=== PATIENT | male | born 1930 | race Caucasian/White ===

== ENCOUNTER 2017-03-17 13:20 | Emergency (ER) | payer OTHER, BC ==
[2017-03-17 13:38] VITALS: BMI 26.2
--- NOTE | 2017-03-17 14:03 | PDOC ---
History of Present Illness - General Chief Complaint: Headache Stated Complaint: HEADACHE, EYE PROBLEM Time Seen by Provider: 03/17/17 13:51 - History of Present Illness Initial Comments: 03/17/17 14:32 86 yo M with h/o HTN, HLD, BL cataracts, and Alzheimer dementia who presents with forehead sensory disturbance. Forehead sensory disturbance described as BL superior brow numbness/fullness occurring intermittently for minutes to hours over the past 8 years. Now presents to the ED with acute onset retrobulbar radiation. No identifiable trigger or alleviator.Denies photphobia, phonophobia, aura, tinnitus, autonomic disturbances. Denies any other complaints. Denies vision loss, FITZGERALD, Denies N/V, weakness, lightheadedness, acute ext sensory disturbance, fevers/chills, chest pain, SOB, urinary complaints, bowel/GI complaints. PCP Dr. Gregorio, and Therapist Occupational Dr. Alejo. ASA 81 mg QD. Denies h/o TIA/CVA. Followed with Dr. Bahena and Dr. Bergeron in past with neg head CT scan 2015, and neg BL carotid dopplers. Past History - Past Medical History Allergies/Adverse Reactions: Allergies Allergy/AdvReac Type Severity Reaction Status Date / Time ibuprofen Allergy Rash Verified 03/17/17 13:34 Penicillins Allergy Rash Verified 03/17/17 13:34 Home Medications: Ambulatory Orders Allopurinol [Zyloprim -] 100 mg PO DAILY 03/17/17 Aspirin [ASA -] 325 mg PO DAILY 03/17/17 Donepezil HCl [Aricept] 10 mg PO DAILY 03/17/17 Dutasteride [Avodart] 0.5 mg PO DAILY 03/17/17 Isosorbide Mononitrate [Isosorbide Mononitrate ER] 60 mg PO DAILY 03/17/17 Metoprolol Succinate [Toprol Xl] 100 mg PO DAILY 03/17/17 Omeprazole Magnesium [Prilosec] 20 mg PO DAILY 03/17/17 Pioglitazone HCl [Actos] 15 mg PO DAILY 03/17/17 Pyridoxine HCl [Vitamin B-6] 100 mg PO DAILY 03/17/17 Rosuvastatin Calcium [Crestor] 5 mg PO DAILY 03/17/17 Vitamin E - 800 unit PO DAILY 03/17/17 Cardiac Disorders: Yes (CARDIAC STENTS) COPD: Yes (emphysema) CHF: No Dementia: Yes (slight) Diabetes: Yes GI Disorders: Yes (H/O COLON POLYPS) Disorders: No HTN: Yes Hypercholesterolemia: Yes Liver Disease: No Thyroid Disease: No Other medical history: bph - Surgical History Abdominal Surgery: No Appendectomy: No Cardiac Surgery: Yes (STENT) Cholecystectomy: No Lung Surgery: No Orthopedic Surgery: Yes (BACK SURGERY) - Immunization History Td Vaccination: Yes Immunization Up to Date: Yes - Suicide/Smoking/Psychosocial Hx Smoking Status: Yes Smoking History: Former smoker Years of Tobacco Use: 45 Have you smoked in the past 12 months: No Number of Cigarettes Smoked Daily: 0 If you are a former smoker, when did you quit?: OVER 25 YEARS Cigars Per Day: 0 Information on smoking cessation initiated: No Hx Alcohol Use: No Drug/Substance Use Hx: No Substance Use Type: None Hx Substance Use Treatment: No Review of Systems - Review of Systems Comments:: 03/17/17 14:02 GENERAL/CONSTITUTIONAL: No fever or chills. No weakness. HEAD, EYES, EARS, NOSE AND THROAT: No change in vision. No ear pain or discharge. No sore throat.- CARDIOVASCULAR: No chest pain or shortness of breath RESPIRATORY: No cough, wheezing, or hemoptysis. GASTROINTESTINAL: No nausea, vomiting, diarrhea or constipation. GENITOURINARY: No dysuria, frequency, or change in urination. MUSCULOSKELETAL: No joint or muscle swelling or pain. No neck or back pain. SKIN: No rash NEUROLOGIC: No headache, vertigo, loss of consciousness, or change in strength/ sensation. ENDOCRINE: No increased thirst. No abnormal weight change HEMATOLOGIC/LYMPHATIC: No anemia, easy bleeding, or history of blood clots. ALLERGIC/IMMUNOLOGIC: No hives or skin allergy. *Physical Exam - Vital Signs Last Vital Signs Temp Pulse Resp BP Pulse Ox 99.7 F H 66 18 138/69 100 03/17/17 13:35 03/17/17 13:35 03/17/17 13:35 03/17/17 13:35 03/17/17 13:35 - Physical Exam Comments: 03/17/17 14:02 GENERAL: Awake, alert, and fully oriented, in no acute distress HEAD: No signs of trauma, normocephalic, atraumatic EYES: Left eye miotic and reactive to light. Right eye pupillary defect. EOMI, sclera anicteric, conjunctiva clear ENT: Hearing grossly normal, nares patent, oropharynx clear without exudates. Moist mucosa NECK: Normal ROM, supple, no lymphadenopathy, JVD, or masses LUNGS: No distress, speaks full sentences, clear to auscultation bilaterally HEART: Regular rate and rhythm, normal S1 and S2, no murmurs, rubs or gallops, peripheral pulses normal and equal bilaterally. EXTREMITIES : Normal inspection, Normal range of motion, no edema. No clubbing or cyanosis. NEUROLOGICAL: Cranial nerves II through XII grossly intact. Normal speech, normal gait, no focal sensorimotor deficits. PING, HTS intact. Absent dysmetria on FTN. Neg romberg sign. SKIN: Warm, Dry, normal turgor, no rashes or lesions noted. ED Treatment Course - LABORATORY CBC & Chemistry Diagram: 03/17/17 14:19 03/17/17 14:19 Medical Decision Making - Medical Decision Making 03/17/17 14:58 86 yo M with h/o HTN, HLD, BL cataracts, and Alzheimer dementia who presents with BL superior brow numbness/fullness occurring intermittently for minutes to hours over the past 8 years. Now presents to the ED with acute onset retrobulbar radiation. No identifiable trigger or alleviator. Denies any other complaints. Denies vision loss, FITZGERALD, Denies N/V, weakness, lightheadedness, acute ext sensory disturbance, fevers/chills, chest pain, SOB, Phyiscal exam unremarkable. Temp 99.7, and hemodynamically stable. Low suspicion for migraine. Denies, photphobia, phonophobia, aura, tinnitus, autonomic disturbances. Sensation is bilateral and non pulsating. Not typical of migraine. Although there are no focal neurological deficits to suggest SAH, or dural hematoma, will consider CT HEAD in elderly patient with low threshold to obtain imaging. Pt. with possible atypical presentation, baseline Alzheimers, poor historian. S/s non suggestive of acute angle closure glacuoma. Will also consider infection, electrolyte/metabolic disturbance. ED Course: CBC, CMP, UA 03/17/17 15:03 CT HEAD W/OUT CON 03/17/17 15:05 CBC: Unremarkable 03/17/17 15:06 CR/BUN: 1.5/33 03/17/17 16:00 CT HEAD: Mild to Mod periventricular ischemic changes. No acute changes. Parietal meningioma present. Discuess with patient the findings of CT HEAD and need to f/u with PCP outpatient for interval CT HEAD. CXR: Unremarkable Patient is stable at bedside and ready for discharge. *DC/Admit/Observation/Transfer Diagnosis at time of Disposition: Disturbed sensory perception - Discharge Dispostion Disposition: HOME Condition at time of disposition: Stable Admit: No - Referrals Referrals: Denilson Gregorio MD [Primary Care Provider] - - Patient Instructions Printed Discharge Instructions: DI for Alzheimer's Disease Additional Instructions: Please return to the emergency department with any new or worsening symptoms or concerns. Please follow up with your neurologist for continued management. - Post Discharge Activity - Attestations Physician Attestion: 03/17/17 16:03 I attest to the information provided in this note.
--- NOTE | 2017-03-17 14:34 | PDOC ---
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 The patient denies head pain. Secondarily, he reports intermittent ringing in his ears. He denies chest pain, shortness of breath, headache and dizziness. He denies fever, chills, nausea, vomit, diarrhea and constipation. He denies dysuria, frequency, urgency and hematuria. Allergies: penicillins and ibuprofen PCP - Dr. Gregorio Welder Helper: Dr. Simental - Physicial Exam PE: 03/17/17 14:39 Vitals: Triage vital signs reviewed General Appearance: No acute distress, well nourished, well developed Head: Atraumatic Eyes: extraocular movement intact Neck: Supple; No nuchal rigidity Chest Wall: Nontender Cardiac: Regular rate and rhythm, no murmurs, no rubs, no gallops Lungs: Clear to auscultation bilateral, good air movement bilaterally Abdomen: Soft, nondistended, normal bowel sounds, nontender to palpation Genitourinary: Rectal: Exam deferred Extremities: Full range of motion to all extremities, no cyanosis, clubbing, or edema Skin: Warm and dry, no rashes or lesions, no rash, no petechiae Neuro: Cranial Nerves 2-12 grossly intact, Strength intact to all extremities, Sensation intact to all extremities, gait normal Psych: Normal mood, normal affect - Medical Decision Making 03/17/17 14:40 Documentation prepared by Hailey Richmond, acting as biomedical engineer for Jose Antonio Choudhary MD, <Hailey Richmond - Last Filed: 03/17/17 16:27> - Resident Resident Name: Praful De La Torre - ED Attending Attestation I have performed the following: I have examined & evaluated the patient, The case was reviewed & discussed with the resident, I agree w/resident's findings & plan, Exceptions are as noted - Medical Decision Making 03/18/17 09:33 This is an 86-year-old gentleman with a long-standing history of a complaint of pressure above his eyebrows. Both of his daughters are at the bedside with him. He has had this complaint for almost 8 years has been evaluated by several neurologists has had a battery of tests included CAT scans and MRIs and there has never been a clear diagnosis or etiology noted for this complaint. Recently he was complaining to his daughters about the same complaint although he felt it a little bit more below his eyes not significantly different than the last 8 years of this complaint He is otherwise acting normally conversing normally is in no pain or no acute distress. In the emergency department he had a CAT scan performed blood work urinalysis chest x-ray. The results of these tests were essentially unremarkable. We discussed the significance of this complaint with the daughters at that this time feel that it is most likely related to whatever the underlying cause of the previous 8 years of this complaint of bed at this time I do not feel strongly that there is an acute neurologic or emergent situation patient appears very stable for outpatient follow-up. Daughters and family are in agreement with plan Findings, the need for follow-up and strict return instructions discussed with family. <Jose Antonio Choudhary - Last Filed: 03/18/17 09:39>
[2017-03-17 14:35] LABS: BASOPHIL 0.6 % (0-2.0); EOSINOPHIL 0.5 % (0-4.5); MCH 29.1 pg (25.7-33.7); MCHC 31.8 g/dl (32.0-35.9); MEAN CELL VOLUME 91.7 fl (80-96); MEAN PLT VOLUME 8.5 fl (7.5-11.1); NEUTROPHILS 72.2 % (42.8-82.8); PLATELET COUNT 129 K/MM3 (134-434); RDW 16.1 % (11.9-15.9); WHITE BLOOD COUNT 6.1 K/mm3 (4.0-10.0)
[2017-03-17] MEDS ORDERED: SODIUM CHLORIDE 1,000 ML IV STA (14:38)
[2017-03-17 14:59] LABS: ANION GAP 3 (8-16); CALCIUM 8.9 mg/dL (8.5-10.1); CO2 32 mmol/L (21-32); CREATININE 1.5 mg/dL (0.7-1.3); GLUCOSE,RANDOM 97 mg/dL (74-106); SGOT/AST 21 U/L (15-37); SGPT/ALT 20 U/L (12-78)
[2017-03-17 15:01] LABS: ALK PHOS 52 U/L (45-117); BILIRUBIN,TOTAL 0.8 mg/dL (0.2-1.0); TOT PROT 6.9 g/dl (6.4-8.2)
[2017-03-17 16:16] LABS: URINE APPEARANCE SLCLOUDY; URINE BILIRUBIN NEGATIVE (NEGATIVE); URINE BLOOD NEGATIVE (NEGATIVE); URINE COLOR YELLOW; URINE GLUCOSE (UA) NEGATIVE (NEGATIVE); URINE KETONE NEGATIVE (NEGATIVE); URINE NITRITE NEGATIVE (NEGATIVE); URINE PROTEIN NEGATIVE (NEGATIVE); URINE UROBILINOGEN NEGATIVE mg/dL (0.2-1.0)
[2017-03-17 17:51] VITALS: BP 122/55; PULSE 55; TEMP 98
[2017-03-17 18:42] LABS: URINE LEUK ESTERASE Negative (NEGATIVE)
== END 2017-03-17 17:51 | disposition home or self-care (01) ==
LOC: JER 13:20
PROC: 3E0337Z Introduction of Electrolytic and Water Balance Substance into Peripheral Vein, Percutaneous Approach (ICD-10-PCS; principal; 2017-03-17)
DX: Z73.82 Dual sensory impairment (principal); G30.9 Alzheimer's disease, unspecified; F02.80 Dementia in other diseases classified elsewhere, unspecified severity, without behavioral disturbance, psychotic disturbance, mood disturbance, and anxiety; Z87.891 Personal history of nicotine dependence; Z95.5 Presence of coronary angioplasty implant and graft; E11.9 Type 2 diabetes mellitus without complications; I10 Essential (primary) hypertension; E78.00 Pure hypercholesterolemia, unspecified; J44.9 Chronic obstructive pulmonary disease, unspecified
CPT/HCPCS: 36415; 70450-TC; 71010-TC; 80053; 81003; 85025; 96360; 99283-25

== ENCOUNTER 2017-07-31 11:03 | Inpatient (IN) | payer OTHER, BC ==
--- NOTE | 2017-07-31 12:18 | PDOC ---
History of Present Illness - History of Present Illness Initial Comments: 07/31/17 12:25 The patient is a 86 year old male, with a significant PMH of hypertension, hyperlipidemia, B/L cataracts, alzheimer dementia, CAD s/p 2 stents, pupil deformity s/p trauma with nail, who presents to the emergency department with 3 weeks of difficulty tolerating food by mouth. As per patients family, the patient visited GI Dr. Barnard yesterday who scheduled an upper GI series for this upcoming Thursday and a esophagram for next Thursday. However, she states since yesterday the patient has had difficulty tolerating liquids and was advised to come to the ED by Dr. Barnard. The patient denies any pain. The patient denies chest pain, shortness of breath, headache and dizziness. Denies fever, chills, diarrhea and constipation. Denies dysuria, frequency, urgency and hematuria. Allergies: ibuprofen, penicillins Social history: Patient lives at home alone. PCP: Dr. Denilson Gregorio GI: Dr. Barnard <Osbaldo Dickson - Last Filed: 07/31/17 12:25> - General History Source: Patient, Family Exam Limitations: No Limitations <Ricardo Andrew - Last Filed: 07/31/17 13:54> - General Chief Complaint: Pain Stated Complaint: GI PROBLEMS, VOMITING Time Seen by Provider: 07/31/17 11:25 Past History <Osbaldo Dickson - Last Filed: 07/31/17 12:25> - Past Medical History Cardiac Disorders: Yes (CARDIAC STENTS) COPD: Yes (emphysema) CHF: No DVT: No Dementia: Yes (slight) Diabetes: Yes GI Disorders: Yes (H/O COLON POLYPS) Disorders: No HTN: Yes Hypercholesterolemia: Yes Liver Disease: No Thyroid Disease: No - Surgical History Abdominal Surgery: No Appendectomy: No Cardiac Surgery: Yes (STENT) Cholecystectomy: No Lung Surgery: No Orthopedic Surgery: Yes (BACK SURGERY) - Immunization History Td Vaccination: Yes Immunization Up to Date: Yes - Suicide/Smoking/Psychosocial Hx Smoking Status: Yes Smoking History: Never smoked Years of Tobacco Use: 45 Have you smoked in the past 12 months: No Number of Cigarettes Smoked Daily: 0 If you are a former smoker, when did you quit?: OVER 25 YEARS Cigars Per Day: 0 Information on smoking cessation initiated: No Hx Alcohol Use: No Drug/Substance Use Hx: No Substance Use Type: None Hx Substance Use Treatment: No <Ricardo Andrew - Last Filed: 07/31/17 13:54> - Past Medical History Allergies/Adverse Reactions: Allergies Allergy/AdvReac Type Severity Reaction Status Date / Time ibuprofen Allergy Rash Verified 07/31/17 11:07 Penicillins Allergy Rash Verified 07/31/17 11:07 Review of Systems - Review of Systems Comments:: 07/31/17 12:26 GENERAL/CONSTITUTIONAL: No fever or chills. No weakness. HEAD, EYES, EARS, NOSE AND THROAT: No change in vision. No ear pain or discharge. No sore throat. CARDIOVASCULAR: No chest pain or shortness of breath. RESPIRATORY: No cough, wheezing, or hemoptysis. GASTROINTESTINAL: +Nausea. +Vomiting. No diarrhea or constipation. GENITOURINARY: No dysuria, frequency, or change in urination. MUSCULOSKELETAL: No joint or muscle swelling or pain. No neck or back pain. SKIN: No rash NEUROLOGIC: No headache, vertigo, loss of consciousness, or change in strength/ sensation. ENDOCRINE: No increased thirst. No abnormal weight change. HEMATOLOGIC/LYMPHATIC: No anemia, easy bleeding, or history of blood clots. ALLERGIC/IMMUNOLOGIC: No hives or skin allergy. <Sheela Dicksonian - Last Filed: 07/31/17 12:25> *Physical Exam - Vital Signs Last Vital Signs Temp Pulse Resp BP Pulse Ox 98.4 F 57 L 18 158/77 100 07/31/17 11:08 07/31/17 11:08 07/31/17 11:08 07/31/17 11:08 07/31/17 11:08 - Physical Exam Comments: 07/31/17 12:28 GENERAL: Awake, alert, and fully oriented, in no acute distress HEAD: No signs of trauma EYES: PERRLA, EOMI, sclera anicteric, conjunctiva clear ENT: Auricles normal inspection, hearing grossly normal, nares patent, oropharynx clear without exudates. Moist mucosa NECK: Normal ROM, supple, no JVD. LUNGS: Breath sounds equal, clear to auscultation bilaterally. No wheezes, and no crackles HEART: Regular rate and rhythm, normal S1 and S2, no murmurs, rubs or gallops ABDOMEN: Soft, nontender. No guarding, no rebound. No masses EXTREMITIES: Normal range of motion, no edema. No clubbing or cyanosis. No cords, erythema, or tenderness NEUROLOGICAL: Cranial nerves II through XII intact. Normal speech, normal gait SKIN: Warm, Dry, normal turgor, no rashes or lesions noted. <Osbaldo Dickson - Last Filed: 07/31/17 12:25> - Vital Signs Last Vital Signs Temp Pulse Resp BP Pulse Ox 98.4 F 57 L 18 158/77 100 07/31/17 11:08 07/31/17 11:08 07/31/17 11:08 07/31/17 11:08 07/31/17 11:08 <Ricardo Andrew - Last Filed: 07/31/17 13:54> Heart Score/ECG Review #1 ECG reviewed & interpreted by me at: 13:35 07/31/17 13:54 NSR 51, RBBB, no std/bethel, TWI V1-V3, QTC 436 msec <Ricardo Andrew - Last Filed: 07/31/17 13:54> ED Treatment Course - LABORATORY CBC & Chemistry Diagram: 07/31/17 12:10 07/31/17 12:10 <Osbaldo Dickson - Last Filed: 07/31/17 12:25> - LABORATORY CBC & Chemistry Diagram: 07/31/17 12:10 07/31/17 12:10 - RADIOLOGY Radiology Studies Ordered: Category Date Time Status CHEST X-RAY PORTABLE* [RAD] Stat Radiology 07/31/17 12:11 Ordered <Ricardo Andrew - Last Filed: 07/31/17 13:54> Medical Decision Making - Medical Decision Making 07/31/17 12:[address] Gregorio at 12:15 pm. Call returned by Dr. Gregorio at 12: 22 pm. Case discussed. <Osbaldo Dickson - Last Filed: 07/31/17 12:25> - Medical Decision Making 07/31/17 12:14 A portion of this note was documented by scribe services under my direction. I have reviewed the details of the note, within reason, and agree with the documentation with the following case summary and management plan written by me. Patient treated in the ED. Nursing notes are reviewed and incorporated into the medical decision-making. Vital signs reviewed. Peripheral IV access obtained by the nurse, laboratory studies are drawn and sent, reviewed and interpreted by myself. Vital Signs Temp Pulse Resp BP Pulse Ox 98.4 F 57 L 18 158/77 100 07/31/17 11:08 07/31/17 11:08 07/31/17 11:08 07/31/17 11:08 07/31/17 11:08 86-year-old male with past medical history of hypertension, diabetes, hyperlipidemia, coronary disease status post stents presents for admission for inability to tolerate by mouth. The patient has had 3 weeks of dysphasia and difficulty swallowing some solid foods. Stated the patient had visited imaging account manager Dr. Barnard who is planning for upper GI series as well as esophagram. There is some concern for esophageal stricture, malignancy (pt has strong family hx of malignancy). The patient was instructed to take puree diet instead of solids. However, since yesterday, pt was unable to tolerate even liquids, and because unable to tolerate PO, pt sent in for admission. I discussed the case with Dr. Barnard. Pt will be planned for inpatient esophagram. Patient has no complaints or pain. Will obtain labs, chest xray, ECG, and initiate IVF and admit the patient to the hospital for inability to tolerate PO. 07/31/17 13:42 CBC, BMP 07/31/17 12:10 07/31/17 12:10 CMP Sodium 144 mmol/L (136-145) 07/31/17 12:10 Potassium 3.8 mmol/L (3.5-5.1) 07/31/17 12:10 Chloride 108 mmol/L (98-107) H 07/31/17 12:10 Carbon Dioxide 29 mmol/L (21-32) 07/31/17 12:10 Anion Gap 7 (8-16) L 07/31/17 12:10 BUN 19 mg/dL (7-18) H D 07/31/17 12:10 Creatinine 1.3 mg/dL (0.7-1.3) 07/31/17 12:10 Creat Clearance w eGFR 52.22 (>60) 07/31/17 12:10 Random Glucose 88 mg/dL (74-106) 07/31/17 12:10 Calcium 8.6 mg/dL (8.5-10.1) 07/31/17 12:10 Phosphorus 2.9 mg/dL (2.5-4.9) 07/31/17 12:10 Magnesium 1.9 mg/dL (1.8-2.4) 07/31/17 12:10 Total Bilirubin 1.0 mg/dL (0.2-1.0) D 07/31/17 12:10 AST 21 U/L (15-37) 07/31/17 12:10 ALT 12 U/L (12-78) D 07/31/17 12:10 Alkaline Phosphatase 51 U/L (45-117) 07/31/17 12:10 Creatine Kinase 189 IU/L (39-308) 07/31/17 12:10 Troponin I < 0.02 ng/ml (0.00-0.05) 07/31/17 12:10 Total Protein 6.4 g/dl (6.4-8.2) 07/31/17 12:10 Albumin 4.0 g/dl (3.4-5.0) 07/31/17 12:10 Lipase 247 U/L (73-393) 07/31/17 12:[address] Gregorio. He requests [facility] admission. Case discussed with [facility] hospitalist, who accepts patient for med/surg admission. Case discussed in detail with admitting physician including history, physical exam and ancillary studies. Admitting physician has assumed care for the patient, will follow all pending diagnostics and will complete the evaluation and treatment. <Ricardo Andrew - Last Filed: 07/31/17 13:54> *DC/Admit/Observation/Transfer <Osbaldo Dickson - Last Filed: 07/31/17 12:25> - Discharge Dispostion Admit: Yes <Ricardo Andrew - Last Filed: 07/31/17 13:54> Diagnosis at time of Disposition: Dysphagia Qualifiers: Dysphagia type: unspecified Qualified Code(s): R13.10 - Dysphagia, unspecified - Discharge Dispostion Condition at time of disposition: Stable - Referrals Referrals: Denilson Gregorio MD [Primary Care Provider] - - Patient Instructions - Post Discharge Activity
[2017-07-31 12:30] LABS: INR 1.14 (0.82-1.09); PROTHROMBIN TIME (PATIENT) 12.9 SEC (9.98-11.88)
[2017-07-31 12:34] LABS: BASO % 0.6 % (0-2.0); EOS % 0.9 % (0-4.5); HEMATOCRIT 34.8 % (35.4-49); HEMOGLOBIN 11.5 GM/dL (11.7-16.9); LYMPH % 22.5 % (8-40); MCH 30.5 pg (25.7-33.7); MCHC 33.1 g/dl (32.0-35.9); MEAN CELL VOLUME 92.3 fl (80-96); MEAN PLT VOLUME 8.7 fl (7.5-11.1); MONO % 9.2 % (3.8-10.2); NEUT % 66.8 % (42.8-82.8); PLATELET COUNT 131 K/MM3 (134-434); RBC 3.77 M/mm3 (4.00-5.60); RDW 16.2 % (11.9-15.9); WHITE BLOOD COUNT 4.3 K/mm3 (4.0-10.0)
[2017-07-31 12:44] LABS: ANION GAP 7 (8-16); BLOOD UREA NITROGEN 19 mg/dL (7-18); CALCIUM 8.6 mg/dL (8.5-10.1); CHLORIDE 108 mmol/L (98-107); CO2 29 mmol/L (21-32); CREATININE 1.3 mg/dL (0.7-1.3); GLUCOSE,RANDOM 88 mg/dL (74-106); MAGNESIUM 1.9 mg/dL (1.8-2.4); PHOSPHOROUS 2.9 mg/dL (2.5-4.9); POTASSIUM 3.8 mmol/L (3.5-5.1); SGOT/AST 21 U/L (15-37); SGPT/ALT 12 U/L (12-78); SODIUM 144 mmol/L (136-145); TOT PROT 6.4 g/dl (6.4-8.2)
[2017-07-31 12:45] LABS: ALK PHOS 51 U/L (45-117); LIPASE 247 U/L (73-393)
[2017-07-31] MEDS: DEXTROSE 5%-NORMAL SALINE 1,000 ML IV SCH ×3 (12:56→22:01)
--- NOTE | 2017-07-31 14:55 | HP ---
CHIEF COMPLAINT: Progressive dysphagia PCP: Dr Gregoiro. HISTORY OF PRESENT ILLNESS: 86 y/o with significant PMH of smoking, GERD came to hospital with a complaint of dysphagia. Patient states that dysphagia started couple of weeks ago and has progressed from solid to liquid food. Reports he has feeling of something got stuck in his chest. He also reports vomiting and regurgitation of food particles. Reports vomiting some time happens immediately and sometime use to happen after couple of hours, contain food particles, no blood. Also reports loss of 10-15 pounds in last couple of weeks. Also reports loss of apatite in last couple of months. Denies blood in stool. have bowel movements once in 3 days. Denies odynophagia. Denies abdominal distension. Denies tongue swelling, denies difficulty in chewing. Denies yellow discoloration of skin. Patient went to see Dr Harrell yesterday and was advised to start puree diet but patient didn't tolerate it and today he even vomited out coffee. Colonoscopy was done in 2013 shows diverticulosis. EGD in 2013 shows duodenitis. Denies chest pain, sob, fever, chills , burning micturation. ER course was notable for: (1)cbc, cmp, IV fluid. (2)gastro consult Recent Travel: No PAST MEDICAL HISTORY: Htn, hld, dementia, cad, emphysema, dm, peripharal neuropathy, ckd. PAST SURGICAL HISTORY: lumbarsurgery for spina stenosis, haemorrhoid, stent 2001 , cataract Social History: Lives by himself, prepares his own food. Medicines are given by his daughters. Smokin pack year history, stopped 20 years ago Alcohol:occasional Drugs: no Family History: mother from stomach cancer, father from [place], 4 out of 8 siblings have GI cancers. Allergies ibuprofen Allergy (Verified 07/31/17 11:07) Rash Penicillins Allergy (Verified 07/31/17 11:07) Rash HOME MEDICATIONS: Home Medications Medication Instructions Recorded Allopurinol [Zyloprim -] 200 mg PO DAILY 07/31/17 Alpha Lipoic Acid 300 mg PO BID 07/31/17 Aspirin [ASA -] 325 mg PO DAILY 07/31/17 Cranberry Conc/Ascorbic Acid 2 each PO DAILY 07/31/17 [Cranberry Plus Vitamin C Sftgl] Donepezil HCl [Aricept] 10 mg PO DAILY 07/31/17 Dutasteride [Avodart] 0.5 mg PO DAILY 07/31/17 Isosorbide Mononitrate [Imdur] 60 mg PO DAILY 07/31/17 Memantine HCl [Namenda Xr] 28 mg PO DAILY 07/31/17 Multivit-Mins/Iron/Folic/Lycop 1 each PO DAILY 07/31/17 [Centrum Men's Tablet] Omeprazole Magnesium [Prilosec Otc] 20 mg PO DAILY 07/31/17 Pioglitazone HCl [Actos] 15 mg PO DAILY 07/31/17 Rosuvastatin [Crestor -] 5 mg PO HS 07/31/17 REVIEW OF SYSTEMS CONSTITUTIONAL: Absent: fever, chills, diaphoresis, generalized weakness, malaise, loss of appetite, weight change HEENT: Absent: rhinorrhea, nasal congestion, throat pain, throat swelling, difficulty swallowing, mouth swelling, ear pain, eye pain, visual changes CARDIOVASCULAR: Absent: chest pain, syncope, palpitations, irregular heart rate, lightheadedness , peripheral edema RESPIRATORY: Absent: cough, shortness of breath, dyspnea with exertion, GASTROINTESTINAL: Absent: abdominal pain, abdominal distension, nausea, vomiting, diarrhea, constipation, melena, hematochezia GENITOURINARY: Absent: dysuria, frequency, urgency, hesitancy, MUSCULOSKELETAL: Absent: myalgia, arthralgia, SKIN: Absent: rash, itching, HEMATOLOGIC/IMMUNOLOGIC: Absent: easy bleeding, easy bruising, ENDOCRINE: Absent: unexplained weight gain, unexplained weight loss, NEUROLOGIC: Absent: headache, focal weakness or paresthesias, dizziness, PSYCHIATRIC: Absent: anxiety, depression, suicidal or homicidal ideation, hallucinations. PHYSICAL EXAMINATION Vital Signs - 24 hr 07/31/17 11:08 Temperature 98.4 F Pulse Rate 57 L Respiratory 18 Rate Blood Pressure 158/77 O2 Sat by Pulse 100 Oximetry (%) GENERAL: Awake, alert, and fully oriented, in no acute distress. HEAD: Normal with no signs of trauma. EYES: right pupil has h/o of injury, left pupil has cataract surgery EARS, NOSE, THROAT: Ears normal, nares patent, oropharynx clear without exudates. Dry mucous membranes. NECK: supple without lymphadenopathy, JVD, or masses. LUNGS: Breath sounds equal, clear to auscultation bilaterally. No wheezes, and no crackles. No accessory muscle use. HEART: Regular rate and rhythm, normal S1 and S2 ABDOMEN: Soft, nontender, not distended, normoactive bowel sounds, no guarding, no rebound, no masses. MUSCULOSKELETAL: Normal range of motion at all joints. UPPER EXTREMITIES: 2+ pulses, warm, well-perfused. No cyanosis. No clubbing. No peripheral edema. LOWER EXTREMITIES: warm, well-perfused. No calf tenderness. No peripheral edema. PSYCHIATRIC: Cooperative. Good eye contact. Appropriate mood and affect. SKIN: Warm, dry, Laboratory Results - last 24 hr 07/31/17 07/31/17 07/31/17 12:10 12:10 12:10 WBC 4.3 RBC 3.77 L Hgb 11.5 L Hct 34.8 L MCV 92.3 MCH 30.5 MCHC 33.1 RDW 16.2 H Plt Count 131 L MPV 8.7 Neutrophils % 66.8 Lymphocytes % 22.5 D Monocytes % 9.2 Eosinophils % 0.9 Basophils % 0.6 PT with INR 12.90 H INR 1.14 PTT (Actin FS) 33.0 Sodium 144 Potassium 3.8 Chloride 108 H Carbon Dioxide 29 Anion Gap 7 L BUN 19 H D Creatinine 1.3 Creat Clearance w eGFR 52.22 Random Glucose 88 Calcium 8.6 Phosphorus 2.9 Magnesium 1.9 Total Bilirubin 1.0 D AST 21 ALT 12 D Alkaline Phosphatase 51 Creatine Kinase 189 Creatine Kinase Index 2.0 CK-MB (CK-2) 3.850 H Troponin I < 0.02 Total Protein 6.4 Albumin 4.0 Lipase 247 Medication Instructions Recorded Allopurinol [Zyloprim -] 200 mg PO DAILY 07/31/17 Alpha Lipoic Acid 300 mg PO BID 07/31/17 Aspirin [ASA -] 325 mg PO DAILY 07/31/17 Cranberry Conc/Ascorbic Acid 2 each PO DAILY 07/31/17 [Cranberry Plus Vitamin C Sftgl] Donepezil HCl [Aricept] 10 mg PO DAILY 07/31/17 Dutasteride [Avodart] 0.5 mg PO DAILY 07/31/17 Isosorbide Mononitrate [Imdur] 60 mg PO DAILY 07/31/17 Memantine HCl [Namenda Xr] 28 mg PO DAILY 07/31/17 Multivit-Mins/Iron/Folic/Lycop 1 each PO DAILY 07/31/17 [Centrum Men's Tablet] Omeprazole Magnesium [Prilosec Otc] 20 mg PO DAILY 07/31/17 Pioglitazone HCl [Actos] 15 mg PO DAILY 07/31/17 Rosuvastatin [Crestor -] 5 mg PO HS 07/31/17 ASSESSMENT/PLAN: 86 y/o with significant PMH of smoking, GERD came to hospital with a complaint of progressive dysphagia. Progressive Dysphagia: malignancy vs stricture ( from gerd) vs esophagial dysmotility vs goo NPO for now IV fluid hydration. IV pepcid. CT scan po and IV contrast tomorrow after optimizing the patient. GI consult. Monitor vitals, Monitor intake and output. crush the medicines. HTN continue home med toprol xl 100mg started on metoprolol 100mg bid. CAD: stentin [address] snow continue isosorbide mononirate, 60mg daily continue aspirin 325 mg daily Patient also takes nitroglycerine 0.4mg prn for chest pain. DM hold oral hypoglycemic for now. actos 15mg daily. started on insulin sliding scale BGM ACHS. HLD hold rosuvastatin 5mg, due to dysphagia. Dementia hold nnamenda and donepezil 10mg for now. urine retention follows dr frias continue dutasteride Gout continue allopurinol CKD creatninne at base line follows dr kasia khan. IV fluid. monitor creatnine. Peripharal neuropathy hold alpha lipolic acid 300mg bid due to dysphagia. fluid: D%NS 100ml/hr electrolyte; repeat in am nutrition: npo for today dvt pro: heparin sq gi pro; pepcid bid. dispo: med surg. Visit type - Emergency Visit Emergency Visit: Yes ED Registration Date: 07/31/17 Care time: The patient presented to the Emergency Department on the above date and was hospitalized for further evaluation of their emergent condition. - New Patient This patient is new to me today: Yes Date on this admission: 07/31/17 - Critical Care Critical Care patient: No
--- NOTE | 2017-07-31 14:59 | CON.GI ---
Consult Consult Specialty:: Gastroenterology Referred by:: Dr. Gregorio Reason for Consultation:: Dysphagia - History of Present Illness Chief Complaint: Unable to retain liquids or solids for 24 hours History of Present Illness: 86M was seen in the office yesterday where his daughters reported that he had developed dysphagia for solids for several weeks. They observed him to regurgitate his food on several occasions recently and have noted weight loss. More recently he has simplified his foods to soups. He denied coughing or choking after clear liquids and he has been able to only tolerate these recently. He has been regurgitating his medications. They had tried to bring him in earlier but he has been refusing. He has developed dementia but has refused entering a SNF. His daughter Judith tells me that she established herself as his lina care proxy when his dementia became evident during his last hospitalization. 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 Place of : [facility] History of Recent Travel: No Home Medications - Allergies Allergies/Adverse Reactions: Allergies Allergy/AdvReac Type Severity Reaction Status Date / Time ibuprofen Allergy Rash Verified 07/31/17 11:07 Penicillins Allergy Rash Verified 07/31/17 11:07 - Home Medications Home Medications: Ambulatory Orders Allopurinol [Zyloprim -] 200 mg PO DAILY 07/31/17 Alpha Lipoic Acid 300 mg PO BID 07/31/17 Aspirin [ASA -] 325 mg PO DAILY 07/31/17 Cranberry Conc/Ascorbic Acid [Cranberry Plus Vitamin C Sftgl] 2 each PO DAILY Donepezil HCl [Aricept] 10 mg PO DAILY 07/31/17 Dutasteride [Avodart] 0.5 mg PO DAILY 07/31/17 Isosorbide Mononitrate [Imdur] 60 mg PO DAILY 07/31/17 Memantine HCl [Namenda Xr] 28 mg PO DAILY 07/31/17 Multivit-Mins/Iron/Folic/Lycop [Centrum Men's Tablet] 1 each PO DAILY 07/31/17 Omeprazole Magnesium [Prilosec Otc] 20 mg PO DAILY 07/31/17 Pioglitazone HCl [Actos] 15 mg PO DAILY 07/31/17 Rosuvastatin [Crestor -] 5 mg PO HS 07/31/17 Family Disease History - Family Disease History Family Disease History: Heart Disease: Father ( [place] in his 60s), [place]: Mother ( of stomach cancer in her 80s), Sister (2 colon ca, 1 - pancreatic ca, 1 - gastric ca) Review of Systems - Review of Systems Constitutional: reports: Unintentional Wgt. Loss, Weakness Eyes: reports: No Symptoms HENT: reports: Difficult Swallowing Neck: reports: No Symptoms Cardiovascular: reports: Chest Pain Respiratory: reports: No Symptoms Gastrointestinal: reports: Other (dysphagia for solids) Musculoskeletal: reports: Joint Pain Neurological: reports: Confusion Physical Exam-GI Vital Signs: Vital Signs Temperature 98.4 F 07/31/17 11:08 Pulse Rate 57 L 07/31/17 11:08 Respiratory Rate 18 07/31/17 11:08 Blood Pressure 158/77 07/31/17 11:08 O2 Sat by Pulse Oximetry (%) 100 07/31/17 11:08 CBC,CMP WBC 4.3 K/mm3 (4.0-10.0) 07/31/17 12:10 RBC 3.77 M/mm3 (4.00-5.60) L 07/31/17 12:10 Hgb 11.5 GM/dL (11.7-16.9) L 07/31/17 12:10 Hct 34.8 % (35.4-49) L 07/31/17 12:10 MCV 92.3 fl (80-96) 07/31/17 12:10 MCH 30.5 pg (25.7-33.7) 07/31/17 12:10 MCHC 33.1 g/dl (32.0-35.9) 07/31/17 12:10 RDW 16.2 % (11.9-15.9) H 07/31/17 12:10 Plt Count 131 K/MM3 (134-434) L 07/31/17 12:10 MPV 8.7 fl (7.5-11.1) 07/31/17 12:10 Neutrophils % 66.8 % (42.8-82.8) 07/31/17 12:10 Lymphocytes % 22.5 % (8-40) D 07/31/17 12:10 Monocytes % 9.2 % (3.8-10.2) 07/31/17 12:10 Eosinophils % 0.9 % (0-4.5) 07/31/17 12:10 Basophils % 0.6 % (0-2.0) 07/31/17 12:10 Sodium 144 mmol/L (136-145) 07/31/17 12:10 Potassium 3.8 mmol/L (3.5-5.1) 07/31/17 12:10 Chloride 108 mmol/L (98-107) H 07/31/17 12:10 Carbon Dioxide 29 mmol/L (21-32) 07/31/17 12:10 Anion Gap 7 (8-16) L 07/31/17 12:10 BUN 19 mg/dL (7-18) H D 07/31/17 12:10 Creatinine 1.3 mg/dL (0.7-1.3) 07/31/17 12:10 Creat Clearance w eGFR 52.22 (>60) 07/31/17 12:10 Random Glucose 88 mg/dL (74-106) 07/31/17 12:10 Calcium 8.6 mg/dL (8.5-10.1) 07/31/17 12:10 Phosphorus 2.9 mg/dL (2.5-4.9) 07/31/17 12:10 Magnesium 1.9 mg/dL (1.8-2.4) 07/31/17 12:10 Total Bilirubin 1.0 mg/dL (0.2-1.0) D 07/31/17 12:10 AST 21 U/L (15-37) 07/31/17 12:10 ALT 12 U/L (12-78) D 07/31/17 12:10 Alkaline Phosphatase 51 U/L (45-117) 07/31/17 12:10 Creatine Kinase 189 IU/L (39-308) 07/31/17 12:10 Creatine Kinase Index 2.0 % (0.0-5.0) 07/31/17 12:10 CK-MB (CK-2) 3.850 ng/mL (0.5-3.6) H 07/31/17 12:10 Troponin I < 0.02 ng/ml (0.00-0.05) 07/31/17 12:10 Total Protein 6.4 g/dl (6.4-8.2) 07/31/17 12:10 Albumin 4.0 g/dl (3.4-5.0) 07/31/17 12:10 Lipase 247 U/L (73-393) 07/31/17 12:10 Current Medications Generic Name Dose Route Start Last Admin Trade Name Freq PRN Reason Stop Dose Admin Allopurinol 200 mg 08/01/17 10:00 Zyloprim - PO DAILY [facility] Aspirin 325 mg 08/01/17 10:00 Asa - PO DAILY [facility] Dutasteride 0.5 mg 08/01/17 10:00 Avodart - PO DAILY [facility] Heparin Sodium (Porcine) 5,000 unit 07/31/17 18:00 Heparin - SQ Q8H-IV [facility]USLAN Dextrose/Sodium Chloride 1,000 mls @ 125 mls/hr 07/31/17 12:00 07/31/17 12:56 D5-Ns - IV 125 mls/hr ASDIR RUSLAN Administration Dextrose/Sodium Chloride 1,000 mls @ 100 mls/hr 07/31/17 15:00 D5-Ns - IV ASDIR RUSLAN Famotidine 20 mg in 12 mls @ 144 mls/hr 07/31/17 22:00 Pepcid 20 Mg/12 Ml Push IVPUSH BID RUSLAN Insulin Aspart 1 vial 07/31/17 16:30 Novolog Vial Sliding Scale - SQ ACHS [facility] Protocol Isosorbide Mononitrate 60 mg 08/01/17 10:00 Imdur - PO DAILY [facility] Constitutional: Yes: Calm Eyes: Yes: Conjunctiva Clear HENT: Yes: Normocephalic Neck: Yes: Trachea Midline Cardiovascular: Yes: Regular Rate and Rhythm Respiratory: Yes: CTA Bilaterally Gastrointestinal Inspection: Yes: WNL ...Auscultate: Yes: Normoactive Bowel Sounds ...Palpate: Yes: Soft, Other (nontender) ...Rectal Exam: Yes: Deferred (done on office yesterday, no masses , 2+ prostate , brown guaiac negative stool) Edema: No Neurological: Yes: Alert, Other (forgetful) Labs: CBC, BMP 07/31/17 12:10 07/31/17 12:10 INR, PTT INR 1.14 (0.82-1.09) 07/31/17 12:10 Assessment/Plan Perry dypshagia and weight loss suggest either an esophageal malignancy or perhaps an esophageal stricture due to chronic erosive reflux esophagitis. He may alternatively have a Schatzki ring, esophageal dysmotility, achalasia or eosinophilic esophagitis. A gastric outlet obstruction cannot be excluded. I have discussed the case with the residents on the case. Workup will begin with a CT scan of the chest and abdomen to look for evidence of malignancy and achalasia. I have discussed EGD for biopsy and esophageal dilation with Perry and his daughters Judith and Ivana. The potential risks of perforation and hemorrhage and need for surgery and transfusions were discussed, in particular the life threatening nature of an esophageal perforation.
[2017-07-31 15:25] LABS: URINE APPEARANCE CLEAR; URINE BILIRUBIN NEGATIVE (<2.0 mg/dL); URINE COLOR STRAW; URINE GLUCOSE (UA) NEGATIVE (NEGATIVE); URINE KETONE NEGATIVE (NEGATIVE); URINE LEUK ESTERASE NEGATIVE (NEGATIVE); URINE NITRITE NEGATIVE (NEGATIVE); URINE PROTEIN NEGATIVE (NEGATIVE); URINE UROBILINOGEN NEGATIVE mg/dL (0.2-1.0)
--- NOTE | 2017-07-31 15:43 | PN ---
Teaching Attending Note Name of Resident: Vickie Carreon ATTENDING PHYSICIAN STATEMENT I saw and evaluated the patient. I reviewed the resident's note and discussed the case with the resident. I agree with the resident's findings and plan as documented. SUBJECTIVE: 86yo M with PMH HTN, DM, dyslipidemia, CAD s/p 2 stents, alzheimers, ex-smoker presented to the ER with progressively worsening dysphagia. started with solids x3w which progressed to liquids over the past 2 days. went to see Dr Barnard yesterday who was scheduling esophogram and EGD for next week. recommended puree diet which pt was unable to tolerate. was unable to tolerated liquids today with vomiting shortly after drinking. assoc with 15lb weight loss. has strong family hx for esophageal and stomach cancer. denies Cp, SOB, fever, chills, C/D. had EGD/colonoscopy in 2012 showing esophageal duodenitis and diverticulous and rectal polyp OBJECTIVE: Last Vital Signs Temp Pulse Resp BP Pulse Ox 98.1 F 58 L 14 135/72 98 07/31/17 14:50 07/31/17 14:50 07/31/17 14:50 07/31/17 14:50 07/31/17 14:50 General NAD HEENT no LN, no tenderness CV S1 S2 + no murmur Lungs CTA B/L no wheezing/rales/rhonchi Abdomen soft NT/Nd Extremities no pedal edema ASSESSMENT AND PLAN: 86yo M with PMH HTN, DM, dyslipidemia, CAD s/p 2 stents, Alzheimer, ex-smoker presented to the ER with progressively worsening dysphagia 1, Dysphagia- concern for malignancy however can not r/o stricture or achalasia. NPO for now. will allow for rest today. will do CT with contrast tomorrow with po and oral to r/o structural disease. plan for esophagram VS EGD on Thursday. cont NPO, IVF, pepcid, pain and nausea control. after CT will consider advancing diet as tolerated. 2. Anemia- no signs of bleeding. appears stable from last visit. check iron studies. transfusion as needed 3. CKD-at baseline 4. HTN- controlled. switch toprol to metoprolol so it can be crushed. 5. CAD s/p stents- will hold asa for possible Bx on thursday. 6. Alzheimer- cont home medications 7. DVT ppx- heparin sq 8. spoke with daughters present at bedside. all questions answered. verbalized understanding and agreement with plan
[2017-07-31 16:33] VITALS: BMI 25.6
[2017-07-31] MEDS: HEPARIN NA (PORCINE) 5,000 UNITS/ML 1ML VIAL SQ SCH (17:23)
--- NOTE | 2017-07-31 17:23 | HP ---
CHIEF COMPLAINT: can't not tolerate PO PCP: Dr. Gregorio Cards: Dr. Alejo GI: Dr. Barnard HISTORY OF PRESENT ILLNESS: 86yo man with PMH of GERD, HTN, HLD, NIDDM, CAD s/p stents (2001), dementia, cataracts, and L colon diverticulosis who presents with worsening dysphagia to liquids. For the past several weeks the patient has been experiencing dysphagia to solids, but not to liquids. Yesterday (07/30), he saw Dr. Barnard regarding his worsening dysphagia, and an out-patient EGD/esophagram was being arranged. Dr. Barnard advised puree diet, however patient was unable to tolerate and vomited last night after eating. This morning, he was unable to tolerate PO fluids; he vomited 15min after drinking coffee. He denies any odynophagia, hematemesis, or abdominal pain. Of note, patient has a strong family history for GI cancers, including two sisters with colon cancer (developed in 70's), and mother and sister with stomach cancer. Recent Travel: none PAST MEDICAL HISTORY: HTN HLD NIDDM CAD s/p stenting 2001 GERD Cecal AVM Rectal polyp BPH PAST SURGICAL HISTORY: s/p bilateral cataract surgery anal fissurectomy lumbar spinal stenosis surgery - 2002 rectal polypectomy in past by Dr. 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, ; Lives at home alone, but relies on 2 daughters (Ivana and Judith) for medicines/IADLs Smokin pack-year history; quit 1991 Alcohol: former Drugs: never Family History: Mom and sister - stomach cancer 2 siblings - colon cancer 1 sibling - pancreatic cancer Dad - of [place] in 60's Allergies ibuprofen Allergy (Verified 07/31/17 11:07) --> Rash Penicillins Allergy (Verified 07/31/17 11:07) --> Rash HOME MEDICATIONS: Home Medications Medication Instructions Recorded Allopurinol [Zyloprim -] 200 mg PO DAILY 07/31/17 Alpha Lipoic Acid 300 mg PO BID 07/31/17 Aspirin [ASA -] 325 mg PO DAILY 07/31/17 Cranberry Conc/Ascorbic Acid 2 each PO DAILY 07/31/17 [Cranberry Plus Vitamin C Sftgl] Donepezil HCl [Aricept] 10 mg PO DAILY 07/31/17 Dutasteride [Avodart] 0.5 mg PO DAILY 07/31/17 Isosorbide Mononitrate [Imdur] 60 mg PO DAILY 07/31/17 Memantine HCl [Namenda Xr] 28 mg PO DAILY 07/31/17 Multivit-Mins/Iron/Folic/Lycop 1 each PO DAILY 07/31/17 [Centrum Men's Tablet] Omeprazole Magnesium [Prilosec Otc] 20 mg PO DAILY 07/31/17 Pioglitazone HCl [Actos] 15 mg PO DAILY 07/31/17 Rosuvastatin [Crestor -] 5 mg PO HS 07/31/17 REVIEW OF SYSTEMS CONSTITUTIONAL: +Weight loss Absent: fever, chills, diaphoresis, generalized weakness, malaise, loss of appetite HEENT: Absent: rhinorrhea, nasal congestion, throat pain, throat swelling, difficulty swallowing, mouth swelling, ear pain, eye pain, visual changes CARDIOVASCULAR: Absent: chest pain, syncope, palpitations, irregular heart rate, lightheadedness , peripheral edema RESPIRATORY: Absent: cough, shortness of breath, dyspnea with exertion, orthopnea, wheezing, stridor, hemoptysis GASTROINTESTINAL: +vomiting Absent: abdominal pain, abdominal distension, nausea, diarrhea, constipation, melena, hematochezia GENITOURINARY: Absent: dysuria, frequency, urgency, hesitancy, hematuria, flank pain, genital pain MUSCULOSKELETAL: Absent: myalgia, arthralgia, joint swelling, back pain, neck pain SKIN: Absent: rash, itching, pallor HEMATOLOGIC/IMMUNOLOGIC: Absent: easy bleeding, easy bruising, lymphadenopathy, frequent infections ENDOCRINE: Absent: unexplained weight gain, unexplained weight loss, heat intolerance, cold intolerance NEUROLOGIC: Absent: headache, focal weakness or paresthesias, dizziness, unsteady gait, seizure, mental status changes, bladder or bowel incontinence PSYCHIATRIC: Absent: anxiety, depression, suicidal or homicidal ideation, hallucinations. PHYSICAL EXAMINATION Vital Signs - 24 hr 07/31/17 07/31/17 11:08 14:50 Temperature 98.4 F 98.1 F Pulse Rate 57 L Pulse Rate [ 58 L Left Radial] Respiratory 18 14 Rate Blood Pressure 158/77 Blood Pressure 135/72 [Right Arm] O2 Sat by Pulse 100 98 Oximetry (%) GENERAL: Awake, alert, and fully oriented, nad HEENT: sclera anicteric, conjunctiva clear, oropharynx clear without exudates NECK: supple, no cervical LAD LUNGS: CTAB, no wheezing, rales, or rhonchi appreciated HEART: rrr, normal s1/s2, no m/r/g ABDOMEN: soft, NTND, +bowel sounds Ext: 2+ DP pulses, no edema CBC, BMP 07/31/17 12:10 07/31/17 12:10 Hepatic Panel Total Bilirubin 1.0 mg/dL (0.2-1.0) D 07/31/17 12:10 AST 21 U/L (15-37) 07/31/17 12:10 ALT 12 U/L (12-78) D 07/31/17 12:10 Alkaline Phosphatase 51 U/L (45-117) 07/31/17 12:10 Albumin 4.0 g/dl (3.4-5.0) 07/31/17 12:10 Troponin, BNP 07/31/17 12:10 Troponin I < 0.02 Active Medications Dutasteride (Avodart -) 0.5 mg PO DAILY [facility] Heparin Sodium (Porcine) (Heparin -) 5,000 unit SQ Q8H-IV [facility] Stop: 08/02/17 15:00 Dextrose/Sodium Chloride (D5-Ns -) 1,000 mls @ 125 mls/hr IV ASDIR [facility] Last Admin: 07/31/17 12:56 Dose: 125 mls/hr Dextrose/Sodium Chloride (D5-Ns -) 1,000 mls @ 100 mls/hr IV ASDIR [facility] Famotidine/Sodium Chloride (Pepcid 20 Mg Premixed Ivpb -) 20 mg in 50 mls @ 100 mls/hr IVPB BID [facility] Insulin Aspart (Novolog Vial Sliding Scale -) 1 vial SQ ACHS [facility] PRN Reason: Protocol Metoprolol Tartrate (Lopressor -) 100 mg PO BID@0800,2000 [facility] ASSESSMENT/PLAN: 86yo man with PMH of GERD, CAD s/p stents, NIDDM, HTN, HLD, former smoker with strong family history of GI malignancy presents with recent unintentional weight loss, worsening dysphagia, and inability to tolerate PO. #dysphagia, initially only to solids makes oropharyngeal obstruction unlikely; high suspicion for esophageal malignancy vs reflux stricture -Dr. Barnard consulted, case discussed with him -NPO for now -IVF -CT A/P with IV/PO contrast tomorrow with pre and post hydration -Depending on CT A/P results, may plan for esophagram Thu and EGD (consent obtained from daughters) #CKD, at baseline of 1.3 -monitor, IVFs pre and post contrast exposure #normocytic anemia, no active S/S of bleeding -Fe studies -Transfuse Hgb <7 #NIDDM - ISS/BGM #HTN - switch to metoprolol so can be crushed #AD - c/w home meds #CAD s/p stents - hold ASA for possible procedure on thursday #FEN D5NS@100cc lytes wnl NPO, may consider advancing to [place] after CT tomorrow #DVT PPX - Hep sq tid d/w Dr. Clemente Carreon MD PGY1 - Internal Medicine Visit type - Emergency Visit Emergency Visit: Yes ED Registration Date: 07/31/17 Care time: The patient presented to the Emergency Department on the above date and was hospitalized for further evaluation of their emergent condition. - New Patient This patient is new to me today: Yes Date on this admission: 07/31/17 - Critical Care Critical Care patient: No Hospitalist Screening - Colonoscopy Questionnaire Colonoscopy Questionnaire: Colonoscopy Questionnaire - Patient: 50 - 75 years old and never had a screening colonoscopy: No History of colon or rectal polyps, or CA: Yes History of IBD, Crohn's disease or UC: No History of abdominal radiation therapy as a child: Unknown - Relative: 1 with colon or rectal CA, or polyps at age 60 or younger: Yes Colon or rectal CA diagnosed at age 45 or younger: Unknown Multiple relatives with colon or rectal CA: Yes - Outcome: Screening Result: Positive Screen
[2017-07-31] MEDS: INSULIN SLIDING SCALE (NOVOLOG) 1 VIAL SQ SCH ×2 (17:35→22:12)
[2017-07-31 18:41] LABS: URINE APPEARANCE CLEAR; URINE BILIRUBIN NEGATIVE (<2.0 mg/dL); URINE COLOR COLORLESS; URINE GLUCOSE (UA) NEGATIVE (NEGATIVE); URINE KETONE NEGATIVE (NEGATIVE); URINE LEUK ESTERASE NEGATIVE (NEGATIVE); URINE NITRITE NEGATIVE (NEGATIVE); URINE PROTEIN NEGATIVE (NEGATIVE); URINE UROBILINOGEN NEGATIVE mg/dL (0.2-1.0)
[2017-07-31] MEDS: DONEPEZIL HCL 10 MG TABLET (FP) PO SCH (22:00)
[2017-07-31] MEDS ORDERED: ROSUVASTATIN CA 5 MG TABLET (FP) PO SCH (22:00)
[2017-07-31] MEDS: FAMOTIDINE 20 MG/50 ML IVPB 20 MG/50 ML MG IVPB SCH (22:00)
[2017-08-01] MEDS: HEPARIN NA (PORCINE) 5,000 UNITS/ML 1ML VIAL SQ SCH ×3 (02:04→17:20)
[2017-08-01 07:54] LABS: BASO % 0.7 % (0-2.0); EOS % 1.3 % (0-4.5); HEMATOCRIT 33.8 % (35.4-49); HEMOGLOBIN 11.3 GM/dL (11.7-16.9); LYMPH % 18.5 % (8-40); MCH 30.7 pg (25.7-33.7); MCHC 33.3 g/dl (32.0-35.9); MEAN CELL VOLUME 92.3 fl (80-96); MEAN PLT VOLUME 8.5 fl (7.5-11.1); MONO % 11.7 % (3.8-10.2); NEUT % 67.8 % (42.8-82.8); PLATELET COUNT 121 K/MM3 (134-434); RBC 3.66 M/mm3 (4.00-5.60); RDW 15.9 % (11.9-15.9); WHITE BLOOD COUNT 4.8 K/mm3 (4.0-10.0)
[2017-08-01] MEDS ORDERED: METOPROLOL TARTRATE 50 MG TABLET (FP) PO SCH (08:00)
[2017-08-01 08:30] LABS: CHLORIDE 108 mmol/L (98-107); POTASSIUM 3.8 mmol/L (3.5-5.1); SODIUM 145 mmol/L (136-145)
[2017-08-01 08:40] LABS: ALBUMIN 3.6 g/dl (3.4-5.0); ALK PHOS 45 U/L (45-117); ANION GAP 8 (8-16); BILIRUBIN,TOTAL 0.9 mg/dL (0.2-1.0); BLOOD UREA NITROGEN 14 mg/dL (7-18); CALCIUM 8.6 mg/dL (8.5-10.1); CO2 29 mmol/L (21-32); CREATININE 1.1 mg/dL (0.7-1.3); GLUCOSE,RANDOM 92 mg/dL (74-106); MAGNESIUM 2.1 mg/dL (1.8-2.4); PHOSPHOROUS 3.2 mg/dL (2.5-4.9); SGOT/AST 23 U/L (15-37); SGPT/ALT 13 U/L (12-78); TOT PROT 5.8 g/dl (6.4-8.2)
--- NOTE | 2017-08-01 09:05 | PN ---
Progress Note (short form) - Note Progress Note: asymptomatic. denies CP, SOB, fever, chills, throat pain, cough or choking on his saliva. Current Medications Generic Name Dose Route Start Last Admin Trade Name Ramírez PRN Reason Stop Dose Admin Donepezil HCl 10 mg 07/31/17 22:00 07/31/17 22:00 Aricept - PO 10 mg HS [facility] Administration Dutasteride 0.5 mg 08/01/17 10:00 Avodart - PO DAILY [facility] Heparin Sodium (Porcine) 5,000 unit 07/31/17 18:00 08/01/17 02:04 Heparin - SQ 08/02/17 15:00 5,000 unit Q8H-IV [facility] Administration Dextrose/Sodium Chloride 1,000 mls @ 125 mls/hr 07/31/17 12:00 07/31/17 22:01 D5-Ns - IV 125 mls/hr ASDIR [facility] Administration Dextrose/Sodium Chloride 1,000 mls @ 100 mls/hr 07/31/17 15:00 D5-Ns - IV ASDIR [facility] Famotidine/Sodium Chloride 20 mg in 50 mls @ 100 mls/hr 07/31/17 22:00 22:00 Pepcid 20 Mg Premixed Ivpb - IVPB 100 mls/hr BID [facility] Administration Insulin Aspart 1 vial 07/31/17 16:30 07/31/17 22:12 Novolog Vial Sliding Scale - SQ Not Given ACHS [facility] Protocol Metoprolol Tartrate 50 mg 08/01/17 09:04 Lopressor - PO BID@0800,2000 [facility] Non-Formulary Medication 28 mg 08/01/17 10:00 Memantine Hcl [Namenda Xr] PO DAILY [facility] Last Vital Signs Temp Pulse Resp BP Pulse Ox 98.0 F 56 L 20 139/70 90 L 08/01/17 06:00 08/01/17 06:00 08/01/17 06:00 08/01/17 02:00 07/31/17 21:00 General NAD, thin elderly man HEENT no LN, no tenderness CV S1 S2 + no murmur Lungs CTA B/L no wheezing/rales/rhonchi Abdomen soft NT/Nd Extremities no pedal edema CBCD WBC 4.8 K/mm3 (4.0-10.0) 08/01/17 07:06 RBC 3.66 M/mm3 (4.00-5.60) L 08/01/17 07:06 Hgb 11.3 GM/dL (11.7-16.9) L 08/01/17 07:06 Hct 33.8 % (35.4-49) L 08/01/17 07:06 MCV 92.3 fl (80-96) 08/01/17 07:06 MCHC 33.3 g/dl (32.0-35.9) 08/01/17 07:06 RDW 15.9 % (11.9-15.9) 08/01/17 07:06 Plt Count 121 K/MM3 (134-434) L 08/01/17 07:06 MPV 8.5 fl (7.5-11.1) 08/01/17 07:06 CMP Sodium 145 mmol/L (136-145) 08/01/17 07:06 Potassium 3.8 mmol/L (3.5-5.1) 08/01/17 07:06 Chloride 108 mmol/L (98-107) H 08/01/17 07:06 Carbon Dioxide 29 mmol/L (21-32) 08/01/17 07:06 Anion Gap 8 (8-16) 08/01/17 07:06 BUN 14 mg/dL (7-18) D 08/01/17 07:06 Creatinine 1.1 mg/dL (0.7-1.3) 08/01/17 07:06 Creat Clearance w eGFR > 60 (>60) 08/01/17 07:06 Calcium 8.6 mg/dL (8.5-10.1) 08/01/17 07:06 Total Bilirubin 0.9 mg/dL (0.2-1.0) 08/01/17 07:06 AST 23 U/L (15-37) 08/01/17 07:06 ALT 13 U/L (12-78) 08/01/17 07:06 Alkaline Phosphatase 45 U/L (45-117) 08/01/17 07:06 Total Protein 5.8 g/dl (6.4-8.2) L 08/01/17 07:06 Albumin 3.6 g/dl (3.4-5.0) 08/01/17 07:06 ASSESSMENT AND PLAN: 86yo M with PMH HTN, DM, dyslipidemia, CAD s/p 2 stents, Alzheimer, ex-smoker presented to the ER with progressively worsening dysphagia 1, Dysphagia- concern for malignancy however can not r/o stricture or achalasia. Plan for CT chest and abdomen with contrast. pending on results of images today may trial some puree food. cont IVF and pepcid. GI on board. 2. Anemia- no signs of bleeding. appears stable from last visit. check iron studies. transfusion as needed 3. CKD-at baseline. cont hydration after contrast administration to prevent contrast induced nephropathy 4. HTN- controlled. switch toprol to metoprolol so it can be crushed. will reduce dose as been normotensive. will increase as tolerated. 5. CAD s/p stents- will hold asa for possible Bx on thursday. 6. Alzheimer- cont home medications 7. DVT ppx- heparin sq Visit type - Emergency Visit Emergency Visit: Yes ED Registration Date: 07/31/17 Care time: The patient presented to the Emergency Department on the above date and was hospitalized for further evaluation of their emergent condition. - New Patient This patient is new to me today: No - Critical Care Critical Care patient: No - Discharge Referral Referred to [facility] Med P.C.: No
--- NOTE | 2017-08-01 09:51 | EKG ---
Test Reason : Blood Pressure : / mmHG Vent. Rate : 051 BPM Atrial Rate : 051 BPM P-R Int : 192 ms QRS Dur : 136 ms QT Int : 474 ms P-R-T Axes : 057 -17 017 degrees QTc Int : 436 ms SINUS BRADYCARDIA RIGHT BUNDLE BRANCH BLOCK ABNORMAL ECG WHEN COMPARED WITH ECG OF 16-NOV-2012 00:41, NO SIGNIFICANT CHANGE WAS FOUND Confirmed by BARBARA BEARD MD ([id number]) on 08/01/2017 9:51:22 AM Referred By: Confirmed By:BARBARA BEARD MD
[2017-08-01] MEDS: FAMOTIDINE 20 MG/50 ML IVPB 20 MG/50 ML MG IVPB SCH ×2 (09:58→21:02)
[2017-08-01] MEDS: DUTASTERIDE 0.5 MG CAP (FP) PO SCH (09:59)
[2017-08-01] MEDS ORDERED: ASPIRIN 81 MG CHEWABLE TABLETS PO SCH (10:00)
[2017-08-01] MEDS ORDERED: ASPIRIN 325 MG TABLET PO SCH (10:00)
[2017-08-01] MEDS: METOPROLOL TARTRATE 50 MG TABLET (FP) PO SCH ×2 (10:00→21:03)
[2017-08-01] MEDS ORDERED: ALLOPURINOL 100 MG TABLET (FP) PO SCH (10:00)
[2017-08-01] MEDS ORDERED: MEMANTINE HCL 28 MG PO SCH (10:00)
[2017-08-01] MEDS ORDERED: ISOSORBIDE MONONITRATE 60 MG TAB.SR.24H (FP) PO SCH (10:00)
[2017-08-01] MEDS: INSULIN SLIDING SCALE (NOVOLOG) 1 VIAL SQ SCH ×3 (12:35→22:31)
[2017-08-01] MEDS: DEXTROSE 5%-NORMAL SALINE 1,000 ML IV SCH ×3 (12:39→17:59)
--- NOTE | 2017-08-01 15:01 | PN ---
GI Progress Note Subjective: GI F/U FOR DR BOONE PT JUST BACK FROM CT SCAN APPEARS TO HAVE KEPT DOWN THE CONTRAST NO VOM YET HE DID HAVE COFFEE FRI MORNING AND VOMITED THAT UP HE APPEARS TO SWALLOW OK, THEN VOMIT 1-2 HOURS LATER CURRETNLY, HE IS N NO DISTRESS SITTING AND SMILING - Objective Vital Signs: Vital Signs Temperature 98.2 F 08/01/17 08:00 Pulse Rate 60 08/01/17 08:00 Respiratory Rate 18 08/01/17 08:00 Blood Pressure 139/74 08/01/17 08:00 O2 Sat by Pulse Oximetry (%) 99 08/01/17 09:00 Constitutional: No Distress, Calm Eyes: Yes: WNL (+BS/ACTIVE/SOFT AND NT TO PALPATION) Labs: CBC, BMP 08/01/17 07:06 08/01/17 07:06 INR, PTT INR 1.14 (0.82-1.09) 07/31/17 12:10 Assessment/Plan NO ACUTE CHANGES SINCE ADMISSION AWAITING CT SCAN OFFCIAL REPORT CONTRAST SEEMS TO HAVE GONE DOWN AND BEEN TOLERATED NO DISTRESS IF CT SCAN IS NON-OBSTRUCTIVE, THEN WOULD START A PURREE SOFT FULL LIQUID DIET UNTIL EGD EXAM ON 08/03 PLAN D/W 3 DAUGHTERS AT BEDSIDE
[2017-08-01] MEDS: DONEPEZIL HCL 10 MG TABLET (FP) PO SCH (21:02)
[2017-08-01] MEDS ORDERED: MELATONIN 5 MG TABLETS PO ONE (21:42)
[2017-08-01] MEDS: MEMANTINE HCL 28 MG PO SCH (22:32)
[2017-08-02] MEDS: DEXTROSE 5%-NORMAL SALINE 1,000 ML IV SCH ×3 (00:30→16:27)
[2017-08-02] MEDS: HEPARIN NA (PORCINE) 5,000 UNITS/ML 1ML VIAL SQ SCH ×2 (01:14→09:49)
[2017-08-02] MEDS: INSULIN SLIDING SCALE (NOVOLOG) 1 VIAL SQ SCH ×4 (06:03→21:29)
--- NOTE | 2017-08-02 08:15 | PN ---
Physical Exam: 24H events: yesterday - CT Chest/A/P: gastritis; no e/o obstruction O/N: agitated, confused, placed marko vest SUBJECTIVE: Patient seen and examined. Offers no complaints; Tolerating Puree diet, no nausea/vomiting/abdominal pain; No fever/chills/chest pain. OBJECTIVE: Vital Signs Period Temp Pulse Resp BP Sys/Garcia Pulse Ox Last 24 Hr 97.6 F-98.7 F 56-72 20-20 148-163/65-86 95-99 GENERAL: Awake, alert, oriente to self, nad HEENT: sclera anicteric, conjunctiva clear, oropharynx clear without exudates NECK: supple, no cervical LAD LUNGS: CTAB, no wheezing, rales, or rhonchi appreciated HEART: rrr, normal s1/s2 ABDOMEN: soft, NTND, +bowel sounds Ext: 2+ DP pulses, no edema Active Medications Donepezil HCl (Aricept -) 10 mg PO HS [facility] Last Admin: 08/01/17 21:02 Dose: 10 mg Dutasteride (Avodart -) 0.5 mg PO DAILY [facility] Last Admin: 08/02/17 09:49 Dose: 0.5 mg Heparin Sodium (Porcine) (Heparin -) 5,000 unit SQ Q8H-IV [facility] Stop: 08/02/17 15:00 Last Admin: 08/02/17 09:49 Dose: 5,000 unit Dextrose/Sodium Chloride (D5-Ns -) 1,000 mls @ 100 mls/hr IV ASDIR [facility] Last Admin: 08/02/17 09:50 Dose: 100 mls/hr Famotidine/Sodium Chloride (Pepcid 20 Mg Premixed Ivpb -) 20 mg in 50 mls @ 100 mls/hr IVPB BID [facility] Last Admin: 08/02/17 09:49 Dose: 100 mls/hr Insulin Aspart (Novolog Vial Sliding Scale -) 1 vial SQ ACHS [facility] PRN Reason: Protocol Last Admin: 08/02/17 11:34 Dose: Not Given Isosorbide Mononitrate (Imdur -) 30 mg PO DAILY [facility] Last Admin: 08/02/17 09:49 Dose: 30 mg Metoprolol Tartrate (Lopressor -) 50 mg PO BID@0800,2000 [facility] Last Admin: 08/02/17 08:16 Dose: 50 mg Memantine Hcl *Er* (28 Mg Capsule) 28 mg PO DAILY [facility] Last Admin: 08/02/17 09:50 Dose: 28 mg ASSESSMENT/PLAN: 86yo man with PMH of GERD, CAD s/p stents, NIDDM, HTN, HLD, former smoker with strong family history of GI malignancy presents with recent unintentional weight loss, worsening dysphagia, and inability to tolerate PO. #dysphagia to solids -CT revealed no obstructing mass -Diet advanced to Puree, if noted to be coughing or vomiting, will downgrade to NPO; aspiration precautions; maintain HOB elevation -Dr. Barnard consulted; planning for possible esophagram and/or EGD tomorrow; NPO after midnight -IVFs #CKD, at baseline of 1.3, stable -monitor #normocytic anemia, no active S/S of bleeding -Fe studies pending -Transfuse Hgb <7 #NIDDM - ISS/BGM #HTN - switch to metoprolol so can be crushed #AD - c/w home meds #CAD s/p stents - hold ASA for possible procedure on thursday #FEN NS@100cc lytes wnl Puree, DM diet, switch to npo if can't tolerate Puree, NPO after midnight #DVT PPX - Hep sq tid d/w Dr. Clemente Carreon MD PGY1 - Internal Medicine Visit type - Emergency Visit Emergency Visit: No - New Patient This patient is new to me today: No - Critical Care Critical Care patient: No
[2017-08-02] MEDS: METOPROLOL TARTRATE 50 MG TABLET (FP) PO SCH ×2 (08:16→21:24)
--- NOTE | 2017-08-02 08:34 | PN ---
Teaching Attending Note Name of Resident: Vickie Carreon ATTENDING PHYSICIAN STATEMENT I saw and evaluated the patient. I reviewed the resident's note and discussed the case with the resident. I agree with the resident's findings and plan as documented. SUBJECTIVE:no complaints. denies CP, SOB, fever, chills, N/V/C/D, dysphagia or odynophagia OBJECTIVE: Last Vital Signs Temp Pulse Resp BP Pulse Ox 98.7 F 56 L 20 154/72 95 08/02/17 06:00 08/02/17 06:00 08/01/17 22:00 08/02/17 06:00 08/01/17 21:00 General NAD alert but confused CV S1 S2 RRR no murmur/rub/gallop Lungs CTA B/L no wheezing/rales/rhonchi ASSESSMENT AND PLAN: 86yo M with PMH HTN, DM, dyslipidemia, CAD s/p 2 stents, Alzheimer, ex-smoker presented to the ER with progressively worsening dysphagia 1, Dysphagia- concern for malignancy however can not r/o stricture or achalasia. CT chest nothing revealing to explain dysphagia however only bottom portion of esophagus was visualized. will advance to puree diet. will need assistance for feeds. aspiration precautions. monitor for coughing if significant amount will need to be NPO, explained to both aid and RN. NPO tongiht for EGD in AM. on pepcid. GI on board. 2. Anemia- no signs of bleeding. appears stable from last visit. iron studies pending. transfusion as needed 3. CKD-at baseline. cont hydration after contrast administration to prevent contrast induced nephropathy 4. HTN- BP elevated but having episodes of bradycardia. will cont metoprolol at current dosing. will start low dose imdur to improve BP control. 5. CAD s/p stents- will hold asa for possible Bx on thursday. 6. Alzheimer- cont home medications 7. DVT ppx- heparin sq
[2017-08-02] MEDS: DUTASTERIDE 0.5 MG CAP (FP) PO SCH (09:49)
[2017-08-02] MEDS: ISOSORBIDE MONONITRATE 30 MG TAB.SR.24H (FP) PO SCH (09:49)
[2017-08-02] MEDS: FAMOTIDINE 20 MG/50 ML IVPB 20 MG/50 ML MG IVPB SCH ×2 (09:49→21:23)
[2017-08-02] MEDS: MEMANTINE HCL 28 MG PO SCH (09:50)
[2017-08-02] MEDS ORDERED: PT OWN MED DRAWER 7, Y5N ONE (21:20)
[2017-08-02] MEDS: QUEtiapine FUMARATE 25 MG TABLET (FP) PO SCH (21:23)
[2017-08-02] MEDS: DONEPEZIL HCL 10 MG TABLET (FP) PO SCH (21:25)
[2017-08-03] MEDS: INSULIN SLIDING SCALE (NOVOLOG) 1 VIAL SQ SCH ×4 (06:01→21:50)
[2017-08-03 08:09] LABS: SERUM IRON SATURATION 21 % (15-55); TOTAL IRON BINDING CAPACITY 326 ug/dL (250-450); UIBC 258 ug/dL (111-343)
--- NOTE | 2017-08-03 08:50 | PN ---
Physical Exam: SUBJECTIVE: Patient seen and examined. Confused overnight; had to be placed in Sandra vest; c/o sore throat; Tolerated Pureed diet, no nausea/vomiting/ abdominal pain; NPO since midnight-> going for EGD today OBJECTIVE: Vital Signs Period Temp Pulse Resp BP Sys/Garcia Pulse Ox Last 24 Hr 98.0 F-98.8 F 56-67 18-20 110-150/57-83 97-98 GENERAL: Awake, alert, oriente to self, nad HEENT: sclera anicteric, conjunctiva clear, oropharynx clear without exudates or erythema NECK: supple, no cervical LAD LUNGS: CTAB, no wheezing, rales, or rhonchi appreciated HEART: rrr, normal s1/s2 ABDOMEN: soft, NTND, +bowel sounds Ext: 2+ DP pulses, no edema CBC, BMP 08/03/17 15:30 Active Medications Aspirin (Asa -) 325 mg PO DAILY [facility] Donepezil HCl (Aricept -) 10 mg PO [facility] Last Admin: 08/03/17 21:50 Dose: 10 mg Dutasteride (Avodart -) 0.5 mg PO DAILY [facility] Last Admin: 08/03/17 14:16 Dose: 0.5 mg Famotidine/Sodium Chloride (Pepcid 20 Mg Premixed Ivpb -) 20 mg in 50 mls @ 100 mls/hr IVPB BID [facility] Last Admin: 08/03/17 21:49 Dose: 100 mls/hr Insulin Aspart (Novolog Vial Sliding Scale -) 1 vial SQ ACHS [facility] PRN Reason: Protocol Last Admin: 08/03/17 21:50 Dose: Not Given Isosorbide Mononitrate (Imdur -) 30 mg PO DAILY [facility] Last Admin: 08/03/17 14:16 Dose: 30 mg Metoprolol Tartrate (Lopressor -) 50 mg PO BID@0800,2000 [facility] Last Admin: 08/03/17 21:49 Dose: 50 mg Miscellaneous (Lidoderm Patch Removal) 1 each [facility] DAILY@2200 [facility] Last Admin: 08/03/17 21:50 Dose: 1 each Memantine Hcl *Er* (28 Mg Capsule) 28 mg PO DAILY [facility] Last Admin: 08/03/17 14:16 Dose: 28 mg Quetiapine Fumarate (Seroquel -) 25 mg PO [facility] Last Admin: 08/03/17 21:49 Dose: 25 mg ASSESSMENT/PLAN: 86yo man with PMH of GERD, CAD s/p stents, NIDDM, HTN, HLD, former smoker with strong family history of GI malignancy presents with recent unintentional weight loss, worsening dysphagia, and inability to tolerate PO. #dysphagia to solids, tolerated Puree diet yesterday -CT revealed no obstructing mass -aspiration precautions; maintain HOB elevation -Dr. Barnard consulted; going for EGD today -IVFs #CKD, at baseline of 1.3, stable -monitor #normocytic anemia, no active S/S of bleeding -Fe studies pending -Transfuse Hgb <7 #NIDDM - ISS/BGM #HTN - switch to metoprolol so can be crushed #AD - c/w home meds #CAD s/p stents - hold ASA, resume after procedure #FEN NS@100cc lytes wnl NPO, will advance per GI and as tolerated #DVT PPX - Hep sq tid d/w Dr. Clemente Carreon MD PGY1 - Internal Medicine Visit type - Emergency Visit Emergency Visit: No - New Patient This patient is new to me today: No - Critical Care Critical Care patient: No
[2017-08-03] MEDS: METOPROLOL TARTRATE 50 MG TABLET (FP) PO SCH ×2 (09:38→21:49)
[2017-08-03] MEDS: DUTASTERIDE 0.5 MG CAP (FP) PO SCH ×2 (11:08→14:16)
[2017-08-03] MEDS: MEMANTINE HCL 28 MG PO SCH ×2 (11:08→14:16)
[2017-08-03] MEDS: ISOSORBIDE MONONITRATE 30 MG TAB.SR.24H (FP) PO SCH ×2 (11:08→14:16)
[2017-08-03] MEDS: FAMOTIDINE 20 MG/50 ML IVPB 20 MG/50 ML MG IVPB SCH ×3 (11:09→21:49)
--- NOTE | 2017-08-03 12:03 | PN ---
Progress Note (short form) - Note Progress Note: GI Procedure NOte: Please see EGD scanned report. A distal esophageal Schatzki ring was dilated with a short stricture vs spasms above it. Will try full liquids and can advance as tolerated. Will also obtain esophagram. Situation discussed with daughters.
--- NOTE | 2017-08-03 13:20 | PN ---
Teaching Attending Note Name of Resident: Vickie Carreon ATTENDING PHYSICIAN STATEMENT I saw and evaluated the patient. I reviewed the resident's note and discussed the case with the resident. I agree with the resident's findings and plan as documented. SUBJECTIVE:c/o sore throat. dnies Cp, SOB, fever, chills, N/V/C/D, dysphagia. tolerating puree diet was agitated last night placed on 2 point restraints OBJECTIVE: Last Vital Signs Temp Pulse Resp BP Pulse Ox 98.0 F 63 20 166/78 99 08/03/17 13:07 08/03/17 13:07 08/03/17 13:07 08/03/17 13:07 08/03/17 13:07 General NAD alert but confused, bitemporal wasting CV S1 S2 RRR no murmur/rub/gallop Lungs CTA B/L no wheezing/rales/rhonchi ASSESSMENT AND PLAN: 86yo M with PMH HTN, DM, dyslipidemia, CAD s/p 2 stents, Alzheimer, ex-smoker presented to the ER with progressively worsening dysphagia 1, Dysphagia- concern for malignancy however can not r/o stricture or achalasia. CT chest nothing revealing to explain dysphagia. NPO for EGD today. f /u report. on pepcid. GI on board. 2. Anemia- no signs of bleeding. appears stable from last visit. iron studies pending. transfusion as needed 3. CKD-at baseline. d/c IVF 4. Agitation- likely . started on seroquel. on restriants for protection as tries to exit bed. will d/c restraints this AM and monitor 5. Severe malnutrition- evident by body habitus and weight loss. nutritional eval. advance diet as tolerated. ensure 6. HTN- remains slightly elevated. does have episdoes of bradycardia. started on imdur yesterday will titrate to optimize as tolerated. keep metoprolol at current dosing. 7. CAD s/p stents- will hold asa for possible Bx on thursday. can possibly re- start today after procedure 8. Alzheimer- cont home medications 9. DVT ppx- heparin sq 10. daughters desire to bring him home with [employer] or bring him to live with them when medically optimized for discharge.
--- NOTE | 2017-08-03 14:49 | CONSULT ---
Admitting History and Physical - Primary Care Physician PCP: Alee Cornejo - Admission History of Present Illness: 86yo man with PMH of GERD, CAD s/p stents, NIDDM, HTN, HLD, former smoker with strong family history of GI malignancy presents with recent unintentional weight loss, worsening dysphagia, and inability to tolerate PO. Reported stasis of solids and intermittent vomiting 1-2 hours lat. GI: A distal esophageal Schatzki ring was dilated with a short stricture vs spasms above it. full liquids. esophagram. 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 History of Recent Travel: No History - Admission Reason For Visit: DYSPHAGIA - Diagnostics X-ray: Report Reviewed CT Scan: Report Reviewed - General Mental Status: Awake and Alert, Able to Follow Commands, Forgetful, Vague, Intermittently Confused, Flat Affect Attention: Distractible Ability to Follow Directions: Fair Head/Neck Control: Fair - Hearing Hearing: Impaired (suspected) Hearing Aide: No With Patient: No Speech Evaluation - Communication Primary Language: CITIZEN OF [place] Communication: Yes: Simple Responses - Speech Production Able to Make Needs Known: Yes: Mildly Impaired Intelligibility: Yes: Mildly Impaired - Speech Characteristics Voice Loudness: Mildly Soft/Quiet Voice Pitch: Yes: Mildly High Voice Phonatory-based Quality: Yes: Hoarse Nasal Resonance: Normal Articulation: Yes: Imprecise (edentulous) - Language/Auditory Comprehension Follows: Yes: 1 Stage Simple Commands - Swallow Evaluation/Bedside Assessment Current Nutritional Intake: Full Liquids Oral Secretions: Yes: WFL Dentition: Yes: Edentulous Lingual Movement: Symmetric Lingual Speed of Movement: Reduced Lingual Movement Strgth Against Opposition: Reduced Laryngeal Movement: Able to Palpate Labial Seal: WFL Oral Prep Time: WFL A-P Transit: WFL Pocketing: None Timing of Swallow: Delayed Coughing/Throat Clear: No Change in Voice: No Recommendations - Speech Evaluation, Impression/Plan Impression: Pt with Dysphagia to solids, Schatzki's ring dilated, pending esophagram tomorrow. Edentulous. Suspect impaired mastication as well. Case reviewed with GI. For esophagram to assess esophageal structure/function. - Dysphagia Impressions/Plan Dysphagia Impressions: Ongoing Evaluation *Silent aspiration: cannot be R/O at bedside Dysphagia Treatment Plan: Elevate HOB during feed (and for 1 hour after meals) Recommendations: Modified Barium Swallow (as indicated, if difficulty with solids persist.) - Recommendations Diet Consistency: Dysphagia Pureed Liquids: Thin Liquids Supplement: Ensure, Magic Cup, Ensure Pudding
[2017-08-03] MEDS ORDERED: LIDOCAINE 5% TOPICAL PATCH TP ONE (14:57)
[2017-08-03] MEDS ORDERED: INSULIN (NOVOLOG) ASPART 100 UNITS/ML 10ML VIAL ONE (15:49)
[2017-08-03 16:14] LABS: BASO % 0.3 % (0-2.0); EOS % 1.4 % (0-4.5); HEMATOCRIT 35.6 % (35.4-49); HEMOGLOBIN 11.7 GM/dL (11.7-16.9); LYMPH % 12.8 % (8-40); MCH 30.8 pg (25.7-33.7); MEAN CELL VOLUME 93.4 fl (80-96); MONO % 12.5 % (3.8-10.2); PLATELET COUNT 112 K/MM3 (134-434); RBC 3.81 M/mm3 (4.00-5.60); RDW 16.1 % (11.9-15.9)
--- NOTE | 2017-08-03 17:38 | CON.PULM ---
Consult - History of Present Illness Chief Complaint: unable to eat History of Present Illness: Several week history of progressive dysphagia. Today pt had EGD and Schatzky's ring found and esophageal dilatation performed. 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 History of Recent Travel: No Home Medications - Allergies Allergies/Adverse Reactions: Allergies Allergy/AdvReac Type Severity Reaction Status Date / Time ibuprofen Allergy Rash Verified 07/31/17 11:07 Penicillins Allergy Rash Verified 07/31/17 11:07 - Home Medications Home Medications: Ambulatory Orders Allopurinol [Zyloprim -] 200 mg PO DAILY 07/31/17 Alpha Lipoic Acid 300 mg PO BID 07/31/17 Aspirin [ASA -] 325 mg PO DAILY 07/31/17 Cranberry Conc/Ascorbic Acid [Cranberry Plus Vitamin C Sftgl] 2 each PO DAILY Donepezil HCl [Aricept] 10 mg PO DAILY 07/31/17 Dutasteride [Avodart] 0.5 mg PO DAILY 07/31/17 Isosorbide Mononitrate [Imdur] 60 mg PO DAILY 07/31/17 Memantine HCl [Namenda Xr] 28 mg PO DAILY 07/31/17 Multivit-Mins/Iron/Folic/Lycop [Centrum Men's Tablet] 1 each PO DAILY 07/31/17 Omeprazole Magnesium [Prilosec Otc] 20 mg PO DAILY 07/31/17 Pioglitazone HCl [Actos] 15 mg PO DAILY 07/31/17 Rosuvastatin [Crestor -] 5 mg PO HS 07/31/17 Family Disease History - Family Disease History Family Disease History: Heart Disease: Father ( CA in his 60s), CA: Mother ( of stomach cancer in her 80s), Sister (2 colon ca, 1 - pancreatic ca, 1 - gastric ca) Physical Exam Vital Sings: Vital Signs Temperature 98.4 F 08/03/17 15:05 Pulse Rate 54 L 08/03/17 15:05 Respiratory Rate 20 08/03/17 15:05 Blood Pressure 173/83 08/03/17 15:05 O2 Sat by Pulse Oximetry (%) 99 08/03/17 13:07 Constitutional: Yes: Mild Distress Eyes: No: Sclera Icterus HENT: Yes: Atraumatic, Normocephalic Neck: Yes: Supple, Trachea Midline Cardiovascular: Yes: Regular Rate and Rhythm. No: JVD Respiratory: Yes: Diminished (bilateral) ...Clubbing: No Gastrointestinal: Yes: Soft, Hepatomegaly, Tenderness. No: Splenomegaly Extremities: No: Calf Tenderness Edema: No Neurological: No: Oriented (disoriented but did recognize me) Labs: CBC, BMP 08/03/17 15:30 08/01/17 07:06 Problem List - Problems (1) Dysphagia Code(s): R13.10 - DYSPHAGIA, UNSPECIFIED Qualifiers: Dysphagia type: unspecified Qualified Code(s): R13.10 - Dysphagia, unspecified (2) Disturbed sensory perception Code(s): R20.9 - UNSPECIFIED DISTURBANCES OF SKIN SENSATION Assessment/Plan Dysphagia secondary to Schatzky's ring. Respiratory status is stable. No evidence CHF. Dementia: in the past pt's mental status improved post hospitalizations. Plan: diet per GI physical therapy continue current medications
[2017-08-03] MEDS: QUEtiapine FUMARATE 25 MG TABLET (FP) PO SCH (21:49)
[2017-08-03] MEDS: LIDOCAINE PATCH REMOVAL MC SCH (21:50)
[2017-08-03] MEDS: DONEPEZIL HCL 10 MG TABLET (FP) PO SCH (21:50)
[2017-08-04] MEDS: INSULIN SLIDING SCALE (NOVOLOG) 1 VIAL SQ SCH ×4 (06:06→21:48)
--- NOTE | 2017-08-04 07:49 | PN ---
Physical Exam: 24H Events: -yesterday: tolerated Puree in AM; EGD revealed Schatzki's ring s/p dilation -O/N: no acute events -AM: tolerated full liquid breakfast SUBJECTIVE: Patient seen and examined. Offers no complaints.Denies n/v// abdominal pain, CP. OBJECTIVE: Vital Signs Period Temp Pulse Resp BP Sys/Garcia Pulse Ox Last 24 Hr 97.5 F-99.9 F 50-70 18-20 133-173/66-83 93-99 GENERAL: Awake, alert, oriented to self, nad HEENT: sclera anicteric, conjunctiva clear, oropharynx clear without exudates or erythema NECK: supple, no cervical LAD LUNGS: CTAB, no wheezing, rales, or rhonchi appreciated HEART: rrr, normal s1/s2 ABDOMEN: soft, NTND, +bowel sounds Ext: 2+ DP pulses, no edema CBC, BMP 08/04/17 07:30 08/04/17 07:30 Hepatic Panel Total Bilirubin 0.9 mg/dL (0.2-1.0) 08/01/17 07:06 AST 23 U/L (15-37) 08/01/17 07:06 ALT 13 U/L (12-78) 08/01/17 07:06 Alkaline Phosphatase 45 U/L (45-117) 08/01/17 07:06 Albumin 3.6 g/dl (3.4-5.0) 08/01/17 07:06 Microbiology 07/31/17 18:00 Urine - Urine Clean Catch Urine Culture - Final NO GROWTH OBTAINED 07/31/17 15:15 Urine - Urine Clean Catch Urine Culture - Final NO GROWTH OBTAINED Active Medications Aspirin (Asa -) 325 mg PO DAILY [facility] Last Admin: 08/04/17 09:52 Dose: 325 mg Donepezil HCl (Aricept -) 10 mg PO HS [facility] Last Admin: 08/03/17 21:50 Dose: 10 mg Dutasteride (Avodart -) 0.5 mg PO DAILY [facility] Last Admin: 08/04/17 09:52 Dose: 0.5 mg Famotidine/Sodium Chloride (Pepcid 20 Mg Premixed Ivpb -) 20 mg in 50 mls @ 100 mls/hr IVPB BID [facility] Last Admin: 08/04/17 09:53 Dose: 100 mls/hr Insulin Aspart (Novolog Vial Sliding Scale -) 1 vial SQ ACHS [facility] PRN Reason: Protocol Last Admin: 08/04/17 16:03 Dose: Not Given Isosorbide Mononitrate (Imdur -) 30 mg PO DAILY [facility] Last Admin: 08/04/17 09:53 Dose: 30 mg Metoprolol Tartrate (Lopressor -) 50 mg PO BID@0800,2000 [facility] Last Admin: 08/04/17 09:52 Dose: 50 mg Miscellaneous (Lidoderm Patch Removal) 1 each MC DAILY@2200 [facility] Last Admin: 08/03/17 21:50 Dose: 1 each Memantine Hcl *Er* (28 Mg Capsule) 28 mg PO DAILY [facility] Last Admin: 08/04/17 09:53 Dose: 28 mg Potassium Chloride (Potassium Chloride Oral Liquid) 40 meq PO BID [facility] Last Admin: 08/04/17 11:25 Dose: 40 meq Quetiapine Fumarate (Seroquel -) 50 mg PO HS [facility] ASSESSMENT/PLAN: 86yo man with PMH of GERD, CAD s/p stents, NIDDM, HTN, HLD, former smoker with strong family history of GI malignancy presents with recent unintentional weight loss, worsening dysphagia, and inability to tolerate PO. #dysphagia due to Schatzi's ring s/p dilation (08/03), tolerated Puree diet yesterday -Dr. Barnard consulted -RETAIL PERSONAL BANKER consulted -GI series tomorrow to assess stricture s/p dilation; will coordinate with RETAIL PERSONAL BANKER for MBS; NPO at midnight -Puree diet today, aspiration precautions; maintain HOB elevation #insomnia - Seroquel increased from 25 to 50mg HS -Avoid Benzodiazepine #hypoKalemia - replete with KCl 40mEq BID #CKD, at baseline of 1.3, stable -monitor #normocytic anemia, no active S/S of bleeding -Fe studies wnl #NIDDM - ISS/BGM #HTN - switch to metoprolol so can be crushed #CAD s/p stents - restart ASA #FEN PO intake hypoK repleted Puree, DM diet --> NPO at midnight for GI series #DVT PPX - Hep sq tid d/w Dr. Daphney Carreon MD PGY1 - Internal Medicine Visit type - Emergency Visit Emergency Visit: No - New Patient This patient is new to me today: No - Critical Care Critical Care patient: No
[2017-08-04 08:25] LABS: HEMATOCRIT 35.6 % (35.4-49); HEMOGLOBIN 11.8 GM/dL (11.7-16.9); MCH 30.8 pg (25.7-33.7); MCHC 33.1 g/dl (32.0-35.9); MEAN PLT VOLUME 9.5 fl (7.5-11.1); PLATELET COUNT 126 K/MM3 (134-434); RBC 3.82 M/mm3 (4.00-5.60); RDW 15.9 % (11.9-15.9); WHITE BLOOD COUNT 8.4 K/mm3 (4.0-10.0)
[2017-08-04 08:49] LABS: ANION GAP 16 (8-16); BLOOD UREA NITROGEN 11 mg/dL (7-18); CALCIUM 8.8 mg/dL (8.5-10.1); CHLORIDE 108 mmol/L (98-107); CO2 22 mmol/L (21-32); CREATININE 1.2 mg/dL (0.7-1.3); GLUCOSE,RANDOM 69 mg/dL (74-106); SODIUM 146 mmol/L (136-145)
--- NOTE | 2017-08-04 08:54 | PN ---
Teaching Attending Note Name of Resident: Vickie Carreon ATTENDING PHYSICIAN STATEMENT I saw and evaluated the patient. I reviewed the resident's note and discussed the case with the resident. I agree with the resident's findings and plan as documented with exceptions below. SUBJECTIVE: Patient seen and examined. tolerated full liquids well, no new complaints. OBJECTIVE: Vital Signs Period Temp Pulse Resp BP Sys/Garcia Pulse Ox Last 24 Hr 97.5 F-99.9 F 50-70 18-20 133-173/66-83 97-99 Intake & Output 08/01/17 08/02/17 08/03/17 08/04/17 23:59 23:59 23:59 23:59 Intake Total 2350 2650 2000 Output Total 8004 366 8521 Balance 800 2450 850 Weight 143 lb 132 lb 8 oz 135 lb 132 lb 2 oz General; sitting in bed in no acute distress, no teeth noted Abdomen: soft, NT throughout, ND, positive bowel sounds Chest: CTAB, no rales or wheezing Extremities: no edema Home Medication List Medication Instructions Recorded Confirmed Type Allopurinol [Zyloprim -] 200 mg PO DAILY 07/31/17 07/31/17 History Alpha Lipoic Acid 300 mg PO BID 07/31/17 07/31/17 History Aspirin [ASA -] 325 mg PO DAILY 07/31/17 07/31/17 History Cranberry Conc/Ascorbic Acid 2 each PO DAILY 07/31/17 07/31/17 History [Cranberry Plus Vitamin C Sftgl] Donepezil HCl [Aricept] 10 mg PO DAILY 07/31/17 07/31/17 History Dutasteride [Avodart] 0.5 mg PO DAILY 07/31/17 07/31/17 History Isosorbide Mononitrate [Imdur] 60 mg PO DAILY 07/31/17 07/31/17 History Memantine HCl [Namenda Xr] 28 mg PO DAILY 07/31/17 07/31/17 History Multivit-Mins/Iron/Folic/Lycop 1 each PO DAILY 07/31/17 07/31/17 History [Centrum Men's Tablet] Omeprazole Magnesium [Prilosec Otc] 20 mg PO DAILY 07/31/17 07/31/17 History Pioglitazone HCl [Actos] 15 mg PO DAILY 04/20/18 04/20/18 History Rosuvastatin [Crestor -] 5 mg PO HS 07/31/17 07/31/17 History Active Medications Generic Name Dose Route Start Last Admin Trade Name Ramírez PRN Reason Stop Dose Admin Aspirin 325 mg 08/04/17 10:00 Asa - PO DAILY RUSLAN Donepezil HCl 10 mg 07/31/17 22:00 08/03/17 21:50 Aricept - PO 10 mg HS RUSLAN Administration Dutasteride 0.5 mg 08/01/17 10:00 08/03/17 14:16 Avodart - PO 0.5 mg DAILY RUSLAN Administration Famotidine/Sodium Chloride 20 mg in 50 mls @ 100 mls/hr 07/31/17 22:00 21:49 Pepcid 20 Mg Premixed Ivpb - IVPB 100 mls/hr BID RUSLAN Administration Insulin Aspart 1 vial 08/02/17 07:41 08/04/17 06:06 Novolog Vial Sliding Scale - SQ Not Given ACHS [facility] Protocol Isosorbide Mononitrate 30 mg 08/02/17 10:00 08/03/17 14:16 Imdur - PO 30 mg DAILY [facility]US[facility]AN Administration Metoprolol Tartrate 50 mg 08/01/17 09:04 08/03/17 21:49 Lopressor - PO 50 mg BID@0800,2000 [facility] Administration Miscellaneous 1 each 08/03/17 22:00 08/03/17 21:50 Lidoderm Patch Removal MC 1 each DAILY@2200 [facility] Administration Memantine Hcl *Er* 28 mg 08/01/17 22:00 08/03/17 14:16 28 Mg Capsule PO 28 mg DAILY [facility]AN Administration Quetiapine Fumarate 25 mg 08/02/17 22:00 08/03/17 21:49 Seroquel - PO 25 mg HS RUSLAN Administration Laboratory Results - last 24 hr 08/03/17 08/03/17 08/03/17 15:30 16:00 20:44 WBC 6.0 RBC 3.81 L Hgb 11.7 Hct 35.6 MCV 93.4 MCH 30.8 MCHC 33.0 RDW 16.1 H Plt Count 112 L MPV 9.0 Neutrophils % 73.0 Lymphocytes % 12.8 D Monocytes % 12.5 H Eosinophils % 1.4 Basophils % 0.3 Sodium Potassium Chloride Carbon Dioxide Anion Gap BUN Creatinine POC Glucometer 122 103 Random Glucose Calcium 08/04/17 08/04/17 08/04/17 06:05 07:30 07:30 WBC 8.4 D RBC 3.82 L Hgb 11.8 Hct 35.6 MCV 93.0 MCH 30.8 MCHC 33.1 RDW 15.9 Plt Count 126 L MPV 9.5 Neutrophils % Lymphocytes % Monocytes % Eosinophils % Basophils % Sodium 146 H Potassium 2.9 L* D Chloride 108 H Carbon Dioxide 22 D Anion Gap 16 BUN 11 D Creatinine 1.2 POC Glucometer 91 Random Glucose 69 L D Calcium 8.8 08/04/17 10:19 WBC RBC Hgb Hct MCV MCH MCHC RDW Plt Count MPV Neutrophils % Lymphocytes % Monocytes % Eosinophils % Basophils % Sodium Potassium Chloride Carbon Dioxide Anion Gap BUN Creatinine POC Glucometer 140 Random Glucose Calcium ASSESSMENT AND PLAN: 86yo M with PMH HTN, DM, dyslipidemia, CAD s/p 2 stents, Alzheimer, ex-smoker presented to the ER with progressively worsening dysphagia, found with schatzki ring s/p dilation. 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 Aspiration precautions. For esophagogram, will follow up. Speech/swallow input noted. Gaviscon/Protonix. EGD in 3 years if symptomatic. Seroquel while inhouse, increase to 50 mg tonight, d/c restraints as able, discussed with nursing. Nutrition consult. Continue metoprolol/imdur. Resume ASA if no further intervention needed. DVTPPx heparin. CM input noted, possible SNF on d/c, will follow up. likely in 24-48 hours if no concerning findings on work up and able to tolerate PO well.
[2017-08-04] MEDS: ASPIRIN 325 MG TABLET PO SCH (09:52)
[2017-08-04] MEDS: DUTASTERIDE 0.5 MG CAP (FP) PO SCH (09:52)
[2017-08-04] MEDS: METOPROLOL TARTRATE 50 MG TABLET (FP) PO SCH ×2 (09:52→21:37)
[2017-08-04] MEDS: MEMANTINE HCL 28 MG PO SCH (09:53)
[2017-08-04] MEDS: FAMOTIDINE 20 MG/50 ML IVPB 20 MG/50 ML MG IVPB SCH ×2 (09:53→21:37)
[2017-08-04] MEDS: ISOSORBIDE MONONITRATE 30 MG TAB.SR.24H (FP) PO SCH (09:53)
[2017-08-04] MEDS ORDERED: INSULIN (NOVOLOG) ASPART 100 UNITS/ML 10ML VIAL ONE (10:07)
[2017-08-04 10:08] LABS: POTASSIUM 2.9 mmol/L (3.5-5.1)
[2017-08-04] MEDS ORDERED: QUEtiapine FUMARATE 25 MG TABLET (FP) PO SCH (10:55)
--- NOTE | 2017-08-04 11:09 | PN ---
Progress Note, CORPORATE SECURITIES RESEARCH ANALYST - Note Progress Note: Selected Entries 08/03/17 08/03/17 08/03/17 02:00 05:32 08:00 Supper Temperature 98.0 F 98.1 F 97.9 F 08/03/17 08/03/17 08/03/17 11:27 13:07 15:05 Supper Temperature 97.5 F L 98.0 F 98.4 F 08/03/17 08/04/17 18:00 06:00 Supper 25% Temperature 97.6 F 99.9 F H Laboratory Tests 08/04/17 07:30 WBC 8.4 D Case reviewed with PMD. Pt is edentulous presently. Sleepy. Confused, ,possibly exacerbated by hospitalization. Suggest puree/thin liquids,supplements, for now. Pending esophagram and NH placement. MBS, as indicated.
[2017-08-04] MEDS: POTASSIUM CHLORIDE ORAL LIQUID 20 MEQ/15 ML PO SCH ×2 (11:25→22:02)
--- NOTE | 2017-08-04 12:41 | PATH ---
Surgical Pathology Report Patient Name: ASHANTI REYES Med. Rec. #: [id number] /Age/Gender: 1930 (Age: 86) / M Account: [id number] Location: [address] [place] [address]/[facility] Taken: 08/03/2017 Received: 08/03/2017 Reported: 08/04/2017 Physicians: Earl Cash M.D. Specimen(s) Received A: BX DUODENUM B: BX ANTRUM C: BX DISTAL ESOPHAGUS D: BX MID-ESOPHAGUS Clinical History Dysphagia Postoperative diagnosis: Hiatal hernia with Schatzki's ring, mild distal esophageal stricture Final Diagnosis A. DUODENUM, SECOND PORTION AND BULB, BIOPSY: DUODENAL MUCOSA WITH PROMINENT LYMPHOID AGGREGATES. B. STOMACH, ANTRUM, BIOPSY: GASTRIC ANTRAL MUCOSA WITH MILD CHRONIC GASTRITIS. IMMUNOHISTOCHEMICAL STAIN FOR H. PYLORI IS NEGATIVE. C. DISTAL ESOPHAGUS, BIOPSY: SQUAMOCOLUMNAR MUCOSA WITH MILD CHRONIC INFLAMMATION AND CHANGES OF MILD REFLUX ESOPHAGITIS. NO INTESTINAL METAPLASIA OR DYSPLASIA IDENTIFIED. D. MID ESOPHAGUS BIOPSY: SQUAMOUS MUCOSA WITH FOCAL VASCULAR CONGESTION Electronically Signed Gabi Kan M.D. Gross Description A. Received in formalin, labeled "biopsy second portion of duodenum and duodenal bulb" are 3 mendez, irregular portions of soft tissue ranging from 0.3-0.4 cm. in greatest dimension. The specimens are submitted in toto in one cassette. B. Received in formalin, labeled "biopsy antrum" are 2 mendez, irregular portions of soft tissue measuring 0.3 and 0.5 cm. in greatest dimension. The specimens are submitted in toto in one cassette. C. Received in formalin, labeled "biopsy distal esophagus" are 4 mendez, irregular portions of soft tissue ranging from 0.2-0.4 cm. in greatest dimension. The specimens are submitted in toto in one cassette. D. Received in formalin, labeled "biopsy mid esophagus" is a mendez, irregular portion of soft tissue measuring 0.6 cm. in greatest dimension. The specimen is submitted in toto in one cassette. /08/03/2017 saudi/08/03/2017
--- NOTE | 2017-08-04 15:06 | PN ---
GI Progress Note Subjective: GI NOte: Perry is asleep. Has apparently been having agitated dementia. His daughters tell me that he tolerated the puree diet for lunch well. No vomiting since the dilation. Unfortunately the esophagram was not done as Perry had breakfast. I will reorder it. After discussing the case with Cheri Price I will include an MBS to exclude aspiration. - Objective Vital Signs: Vital Signs Temperature 98.5 F 08/04/17 14:00 Pulse Rate 57 L 08/04/17 14:00 Respiratory Rate 17 08/04/17 14:00 Blood Pressure 113/49 08/04/17 14:00 O2 Sat by Pulse Oximetry (%) 99 08/03/17 21:00 ...Auscultate: Yes: Normoactive Bowel Sounds ...Palpate: Yes: Soft, Other (nontender) Labs: CBC, BMP 08/04/17 07:30 08/04/17 07:30 INR, PTT INR 1.14 (0.82-1.09) 07/31/17 12:10 Problem List - Problems (1) Status post dilatation of esophageal stricture Assessment/Plan: Vomiting has resolved since the dilation but await esophagram to exclude achalasia and to assess the adequacy of the dilation as well as to exclude aspiration given his deteriorated mental status. . Code(s): Z98.890 - OTHER SPECIFIED POSTPROCEDURAL STATES; Z87.19 - PERSONAL HISTORY OF OTHER DISEASES OF THE DIGESTIVE SYSTEM (2) Dysphagia Code(s): R13.10 - DYSPHAGIA, UNSPECIFIED Qualifiers: Dysphagia type: unspecified Qualified Code(s): R13.10 - Dysphagia, unspecified (3) Esophageal stricture Code(s): K22.2 - ESOPHAGEAL OBSTRUCTION
[2017-08-04] MEDS: DONEPEZIL HCL 10 MG TABLET (FP) PO SCH (21:39)
[2017-08-04] MEDS: LIDOCAINE PATCH REMOVAL MC SCH (21:39)
[2017-08-05] MEDS: INSULIN SLIDING SCALE (NOVOLOG) 1 VIAL SQ SCH ×3 (06:32→16:28)
--- NOTE | 2017-08-05 07:54 | PN ---
Physical Exam: SUBJECTIVE: Patient seen and examined OBJECTIVE: Vital Signs Period Temp Pulse Resp BP Sys/Garcia Pulse Ox Last 24 Hr 98.5 F-98.9 F 57-63 17-20 113-153/49-82 99-99 GENERAL: The patient is awake, alert, and fully oriented, in no acute distress. HEAD: Normal with no signs of trauma. EYES: PERRL, extraocular movements intact, sclera anicteric, conjunctiva clear. No ptosis. ENT: Ears normal, nares patent, oropharynx clear without exudates, moist mucous membranes. NECK: Trachea midline, full range of motion, supple. LUNGS: Breath sounds equal, clear to auscultation bilaterally, no wheezes, no crackles, no accessory muscle use. HEART: Regular rate and rhythm, S1, S2 without murmur, rub or gallop. ABDOMEN: Soft, nontender, nondistended, normoactive bowel sounds, no guarding, no rebound, no hepatosplenomegaly, no masses. EXTREMITIES: 2+ pulses, warm, well-perfused, no edema. NEUROLOGICAL: Cranial nerves II through XII grossly intact. Normal speech, gait not observed. PSYCH: Normal mood, normal affect. SKIN: Warm, dry, normal turgor, no rashes or lesions noted Laboratory Results - last 24 hr 08/04/17 08/04/17 08/04/17 07:30 07:30 10:19 WBC 8.4 D RBC 3.82 L Hgb 11.8 Hct 35.6 MCV 93.0 MCH 30.8 MCHC 33.1 RDW 15.9 Plt Count 126 L MPV 9.5 Sodium 146 H Potassium 2.9 L* D Chloride 108 H Carbon Dioxide 22 D Anion Gap 16 BUN 11 D Creatinine 1.2 POC Glucometer 140 Random Glucose 69 L D Calcium 8.8 08/04/17 08/04/17 08/05/17 16:03 21:24 06:31 WBC RBC Hgb Hct MCV MCH MCHC RDW Plt Count MPV Sodium Potassium Chloride Carbon Dioxide Anion Gap BUN Creatinine POC Glucometer 97 104 88 Random Glucose Calcium Active Medications Generic Name Dose Route Start Last Admin Trade Name Freq PRN Reason Stop Dose Admin Aspirin 325 mg 08/04/17 10:00 08/04/17 09:52 Asa - PO 325 mg DAILY [facility] Administration Donepezil HCl 10 mg 07/31/17 22:00 08/04/17 21:39 Aricept - PO 10 mg HS [facility] Administration Dutasteride 0.5 mg 08/01/17 10:00 08/04/17 09:52 Avodart - PO 0.5 mg DAILY [facility] Administration Famotidine/Sodium Chloride 20 mg in 50 mls @ 100 mls/hr 07/31/17 22:00 21:37 Pepcid 20 Mg Premixed Ivpb - IVPB 100 mls/hr BID [facility] Administration Insulin Aspart 1 vial 08/02/17 07:41 08/05/17 06:32 Novolog Vial Sliding Scale - SQ Not Given ACHS [facility] Protocol Isosorbide Mononitrate 30 mg 08/02/17 10:00 08/04/17 09:53 Imdur - PO 30 mg DAILY [facility] Administration Metoprolol Tartrate 50 mg 08/01/17 09:04 08/04/17 21:37 Lopressor - PO 50 mg BID@0800,2000 [facility] Administration Miscellaneous 1 each 08/03/17 22:00 08/04/17 21:39 Lidoderm Patch Removal MC 1 each DAILY@2200 [facility] Administration Memantine Hcl *Er* 28 mg 08/01/17 22:00 08/04/17 09:53 28 Mg Capsule PO 28 mg DAILY [facility] Administration Potassium Chloride 40 meq 08/04/17 10:30 08/04/17 22:02 Potassium Chloride Oral Liquid PO 40 meq BID [facility] Administration Quetiapine Fumarate 50 mg 08/04/17 10:55 08/04/17 21:37 Seroquel - PO 50 mg HS RUSLAN Administration ASSESSMENT/PLAN:
[2017-08-05] MEDS: METOPROLOL TARTRATE 50 MG TABLET (FP) PO SCH (08:01)
[2017-08-05 08:31] LABS: CHLORIDE 108 mmol/L (98-107); POTASSIUM 3.5 mmol/L (3.5-5.1); SODIUM 144 mmol/L (136-145)
[2017-08-05 08:39] LABS: ALBUMIN 3.8 g/dl (3.4-5.0); ALK PHOS 46 U/L (45-117); ANION GAP 8 (8-16); BILIRUBIN,TOTAL 1.8 mg/dL (0.2-1.0); BLOOD UREA NITROGEN 19 mg/dL (7-18); CALCIUM 8.6 mg/dL (8.5-10.1); CO2 28 mmol/L (21-32); CREATININE 1.1 mg/dL (0.7-1.3); GLUCOSE,RANDOM 84 mg/dL (74-106); SGOT/AST 36 U/L (15-37); SGPT/ALT 24 U/L (12-78); TOT PROT 6.4 g/dl (6.4-8.2)
[2017-08-05 09:17] VITALS: BP 151/75; PULSE 61; TEMP 98.9
[2017-08-05] MEDS: ASPIRIN 325 MG TABLET PO SCH (11:09)
[2017-08-05] MEDS: MEMANTINE HCL 28 MG PO SCH (11:09)
[2017-08-05] MEDS: DUTASTERIDE 0.5 MG CAP (FP) PO SCH (11:09)
[2017-08-05] MEDS: ISOSORBIDE MONONITRATE 30 MG TAB.SR.24H (FP) PO SCH (11:09)
[2017-08-05] MEDS: POTASSIUM CHLORIDE ORAL LIQUID 20 MEQ/15 ML PO SCH (11:09)
[2017-08-05] MEDS: FAMOTIDINE 20 MG/50 ML IVPB 20 MG/50 ML MG IVPB SCH (11:12)
--- NOTE | 2017-08-05 14:39 | PN ---
Teaching Attending Note Name of Resident: Vickie Carreon ATTENDING PHYSICIAN STATEMENT I saw and evaluated the patient. I reviewed the resident's note and discussed the case with the resident. I agree with the resident's findings and plan as documented with exceptions below. SUBJECTIVE: patient seen and examined, no complaints OBJECTIVE: Vital Signs Period Temp Pulse Resp BP Sys/Garcia Pulse Ox Last 24 Hr 98.8 F-98.9 F 57-63 18-20 145-153/75-82 98-99 Intake & Output 08/02/17 08/03/17 08/04/17 08/05/17 23:59 23:59 23:59 23:59 Intake Total 2650 2000 660 0 Output Total 200 1150 300 0 Balance 2450 850 360 0 Weight 132 lb 8 oz 135 lb 132 lb 2 oz 134 lb 6 oz General: sitting chair awaiting UGI series, no acute distress Abdomen: soft, NT, ND, positive bowel sounds Home Medication List Medication Instructions Recorded Confirmed Type Allopurinol [Zyloprim -] 200 mg PO DAILY 07/31/17 07/31/17 History Alpha Lipoic Acid 300 mg PO BID 07/31/17 07/31/17 History Aspirin [ASA -] 325 mg PO DAILY 07/31/17 07/31/17 History Cranberry Conc/Ascorbic Acid 2 each PO DAILY 07/31/17 07/31/17 History [Cranberry Plus Vitamin C Sftgl] Donepezil HCl [Aricept] 10 mg PO DAILY 07/31/17 07/31/17 History Dutasteride [Avodart] 0.5 mg PO DAILY 07/31/17 07/31/17 History Isosorbide Mononitrate [Imdur] 60 mg PO DAILY 07/31/17 07/31/17 History Memantine HCl [Namenda Xr] 28 mg PO DAILY 07/31/17 07/31/17 History Multivit-Mins/Iron/Folic/Lycop 1 each PO DAILY 07/31/17 07/31/17 History [Centrum Men's Tablet] Omeprazole Magnesium [Prilosec Otc] 20 mg PO DAILY 07/31/17 07/31/17 History Pioglitazone HCl [Actos] 15 mg PO DAILY 07/31/17 07/31/17 History Rosuvastatin [Crestor -] 5 mg PO HS 07/31/17 07/31/17 History Active Medications Generic Name Dose Route Start Last Admin Trade Name Ramírez PRN Reason Stop Dose Admin Aspirin 325 mg 08/04/17 10:00 08/05/17 11:09 Asa - PO Not Given DAILY [facility] Donepezil HCl 10 mg 07/31/17 22:00 08/04/17 21:39 Aricept - PO 10 mg HS [facility] Administration Dutasteride 0.5 mg 08/01/17 10:00 08/05/17 11:09 Avodart - PO Not Given DAILY [facility] Famotidine/Sodium Chloride 20 mg in 50 mls @ 100 mls/hr 07/31/17 22:00 11:12 Pepcid 20 Mg Premixed Ivpb - IVPB 100 mls/hr BID [facility] Administration Insulin Aspart 1 vial 08/02/17 07:41 08/05/17 11:27 Novolog Vial Sliding Scale - SQ Not Given ACHS [facility] Protocol Isosorbide Mononitrate 30 mg 08/02/17 10:00 08/05/17 11:09 Imdur - PO Not Given DAILY [facility] Metoprolol Tartrate 50 mg 08/01/17 09:04 08/05/17 08:01 Lopressor - PO 50 mg BID@0800,2000 [facility] Administration Miscellaneous 1 each 08/03/17 22:00 08/04/17 21:39 Lidoderm Patch Removal MC 1 each DAILY@2200 [facility] Administration Memantine Hcl *Er* 28 mg 08/01/17 22:00 08/05/17 11:09 28 Mg Capsule PO Not Given DAILY [facility] Potassium Chloride 40 meq 08/04/17 10:30 08/05/17 11:09 Potassium Chloride Oral Liquid PO Not Given BID [facility] Quetiapine Fumarate 50 mg 08/04/17 10:55 08/04/17 21:37 Seroquel - PO 50 mg HS [facility] Administration Laboratory Results - last 24 hr 08/04/17 08/04/17 08/05/17 16:03 21:24 06:31 Sodium Potassium Chloride Carbon Dioxide Anion Gap BUN Creatinine Creat Clearance w eGFR POC Glucometer 97 104 88 Random Glucose Calcium Total Bilirubin AST ALT Alkaline Phosphatase Total Protein Albumin 08/05/17 08/05/17 07:40 11:20 Sodium 144 Potassium 3.5 D Chloride 108 H Carbon Dioxide 28 D Anion Gap 8 BUN 19 H D Creatinine 1.1 Creat Clearance w eGFR > 60 POC Glucometer 83 Random Glucose 84 D Calcium 8.6 Total Bilirubin 1.8 H D AST 36 D ALT 24 D Alkaline Phosphatase 46 Total Protein 6.4 Albumin 3.8 Microbiology 07/31/17 18:00 Urine - Urine Clean Catch Urine Culture - Final NO GROWTH OBTAINED 07/31/17 15:15 Urine - Urine Clean Catch Urine Culture - Final NO GROWTH OBTAINED ASSESSMENT AND PLAN: 86yo M with PMH HTN, DM, dyslipidemia, CAD s/p 2 stents, Alzheimer, ex-smoker presented to the ER with progressively worsening dysphagia, found with schatzki ring s/p dilation. 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 MBS noted. Chopped diet with soft/thin liquids. Gaviscon/Protonix. EGD in 3 years if symptomatic. Doing well with seroquel 50 mg hs, continue inhouse. Continue metoprolol/imdur. Resume ASA if no further intervention needed. DVTPPx heparin. CM input noted, possible SNF on d/c, will follow up. likely in 24-48 hours if no concerning findings on work up and able to tolerate PO well. Plan discussed with patient and daughter at bedside in detail, all questions answered.
--- NOTE | 2017-08-05 15:58 | DS ---
Physical Exam: SUBJECTIVE: Patient seen and examined. Increased Seroquel 50mg HS improved insomnia relief. Pt offers no complaints this morning. No n/v/abdominal pain/ chest pain/ urinary symptoms. Eating and voiding well. OBJECTIVE: Vital Signs Period Temp Pulse Resp BP Sys/Garcia Pulse Ox Last 24 Hr 98.8 F-98.9 F 57-63 18-20 145-153/75-82 98-99 PHYSICAL EXAM GENERAL: Awake, alert, oriented to self, nad HEENT: sclera anicteric, conjunctiva clear, oropharynx clear without exudates or erythema NECK: supple, no cervical LAD LUNGS: CTAB, no wheezing, rales, or rhonchi appreciated HEART: rrr, normal s1/s2 ABDOMEN: soft, NTND, +bowel sounds Ext: 2+ DP pulses, no edema LABS CBC, BMP 08/04/17 07:30 08/05/17 07:40 Hepatic Panel Total Bilirubin 1.8 mg/dL (0.2-1.0) H D 08/05/17 07:40 AST 36 U/L (15-37) D 08/05/17 07:40 ALT 24 U/L (12-78) D 08/05/17 07:40 Alkaline Phosphatase 46 U/L (45-117) 08/05/17 07:40 Albumin 3.8 g/dl (3.4-5.0) 08/05/17 07:40 Microbiology 07/31/17 18:00 Urine - Urine Clean Catch Urine Culture - Final NO GROWTH OBTAINED 07/31/17 15:15 Urine - Urine Clean Catch Urine Culture - Final NO GROWTH OBTAINED HOSPITAL COURSE: Date of Admission:07/31/17 Date of Discharge: 08/05/17 Pre-Hospital Admission Course: 86yo man with PMH of GERD, HTN, HLD, NIDDM, CAD s/p stents (2001), dementia, cataracts, and L colon diverticulosis who presents with worsening dysphagia, and inability to tolerate PO. For the past several weeks the patient has been experiencing dysphagia to solids, but not to liquids. Yesterday (07/30), he saw Dr. Barnard regarding his worsening dysphagia, and an out-patient EGD/ esophagram was being arranged. Dr. Barnard advised puree diet, however patient was unable to tolerate and vomited last night after eating. This morning, he was unable to tolerate PO fluids; he vomited 15min after drinking coffee. He denies any odynophagia, hematemesis, or abdominal pain. Of note, patient has a strong family history for GI cancers, including two sisters with colon cancer (developed in 70's), and mother and sister with stomach cancer. Subsequent Hospital Course: Dr. Barnard (GI) was consulted. Patient was placed NPO and IVF hydration was initiated. CT A/P revealved no mass or signs of GI obstruction. On 08/03/17, EGD with dilation of Schatzki's ring was performed. Per GI, patient was started on Protonix 40mg daily and Gaviscon PRN for dyspepsia. EGD in 3 years if symptomatic. Subsequent esophogram and modified barium swallow study was performed, which found small, sliding hiatal hernia, but no signs of achalasia or esophageal stricture; MBS w/o signs of dysphagia. DIESEL ELECTRICIAN evaluation recommended chopped diet with thin liquids, which the patient tolerated. Over course of admission, the patient was found to be hypokalemic to 2.9, which was repleted. In the evenings, the patient had insomnia/worsening confusion, and treated with Seroquel 50mg HS with good effect. Patient has baseline CKD ( Cr 1.3), which remained stable. Diabetes was well controlled with ISS. Iron studies for normcytic anemia was wnl. Patient's home ASA was resumed following the EGD. Pt discharged on home Toprol Xl 100mg PO daily. IMAGING: EXAM#: TYPE/EXAM: RESULT: CT/ABDOMEN PELVIS CT WITH CONTR CT /CHEST CT WITH CONTRAST CT chest, abdomen and pelvis with oral and IV contrast, 95 cc Omnipaque 350 HISTORY: Weight loss and dysphagia No pulmonary masses or nodules Minimal right lower lobe atelectasis No pleural pericardial effusion No thoracic lymphadenopathy No thoracic aortic aneurysm Thickened folds of stomach with mural thickening suggestive possible gastritis Liver, spleen, adrenal glands pancreas and gallbladder are unremarkable Bilaterally large renal cysts. Largest cyst right kidney 5.9 cm. Largest cyst left kidney 4.6 cm No hydronephrosis or solid renal masses No abdominal aortic aneurysm Right common femoral artery aneurysm largest transverse dimension 2.7 cm Small fat- containing inguinal hernias No evidence of bowel obstruction No retroperitoneal lymphadenopathy Bladder and prostate unremarkable Significant scoliosis with degenerative change IMPRESSION: Possible gastritis Large renal cysts. Right common femoral artery aneurysm EXAM#: TYPE/EXAM: RESULT: [id number] RAD/GI SERIES W/ESOPHOGRAM* [id number] RAD/ BARIUM SWALLOW-MOD INDICATION: Dysphagia. Status post Schatzki ring dilatation. Evaluate for achalasia versus distal esophageal stricture. TECHNIQUE: 1. Multiple barium coated food consistencies was provided to the patient in the upright seated position by the speech pathologist under direct fluoroscopic observation. Fluoroscopy time = 1.0 minutes. 2. A single contrast esophagram was performed in the upright seated position while the patient drank thin barium under direct fluoroscopic observation. Fluoroscopy time = 0.4 minutes. COMPARISON: None available. FINDINGS: There is deep penetration with liquids. There is no evidence of aspiration. Contrast flows through the esophagus without holdup or delay. Evaluation of the upper esophagus is limited due to overlapping soft tissue and bone. There is no evidence of esophageal stricture, diverticulum or mass. There is a small sliding hiatal hernia. IMPRESSION: 1. No evidence of achalasia, esophageal stricture or mass. Small sliding hiatal hernia. 2. Deep penetration with liquids. No evidence of aspiration. EXAM#: TYPE/EXAM: RESULT: [id number] RAD/EVAL SWALLOW/LLISS MODIFIED BARIUM SWALLOW was performed upright, lateral with Dr. Garica using puree, thick and thin liquid via cup and straw and a cookie. ORAL STAGE: Patient had upper dentures and was edentulous in lower region. Fair mastication, extended with eventual bolus formation and transfer with solids. To and fro of the bolus with puree with eventual transit. PHARYNGEAL STAGE: The swallow reflex was brisk with no aspiration or stasis demonstrated on any consistency. There was intermittent deep penetration on thin liquid, especially during continuous drinking and straw drinking. There was no aspiration. There was risk of aspiration due to spillage and the delayed swallow onset. ESOPHAGEAL STAGE: Refer to radiological report. No hang-up of contrast. Rapid emptying. IMPRESSION : Extended mastication. Deep penetration on thin liquid without aspiration but risk noted. Esophagus emptied well. RECOMMENDATIONS: Trial of chopped diet with 1-2 soft items per tray. Dentures in during meals. Thin liquid. Thank you very much for this kind referral. Cheri Price, [facility] [place] EXAM#: TYPE/EXAM: RESULT: [id number] RAD/GI SERIES W/ESOPHOGRAM* [id number] RAD/ BARIUM SWALLOW-MOD INDICATION: Dysphagia. Status post Schatzki ring dilatation. Evaluate for achalasia versus distal esophageal stricture. TECHNIQUE: 1. Multiple barium coated food consistencies was provided to the patient in the upright seated position by the speech pathologist under direct fluoroscopic observation. Fluoroscopy time = 1.0 minutes. 2. A single contrast esophagram was performed in the upright seated position while the patient drank thin barium under direct fluoroscopic observation. Fluoroscopy time = 0.4 minutes. COMPARISON: None available. FINDINGS: There is deep penetration with liquids. There is no evidence of aspiration. Contrast flows through the esophagus without holdup or delay. Evaluation of the upper esophagus is limited due to overlapping soft tissue and bone. There is no evidence of esophageal stricture, diverticulum or mass. There is a small sliding hiatal hernia. IMPRESSION: 1. No evidence of achalasia, esophageal stricture or mass. Small sliding hiatal hernia. 2. Deep penetration with liquids. No evidence of aspiration. Minutes to complete discharge: 45 Discharge Summary Reason For Visit: DYSPHAGIA Current Active Problems Dysphagia (Acute) Esophageal stricture (Acute) Status post dilatation of esophageal stricture (Acute) Condition: Stable - Instructions Diet, Activity, Other Instructions: You were admitted to the hospital for difficulty eating and drinking. You underwent an EGD and Dr. Barnard found a stricture (narrowing) in your esophagus that he dilated. Imaging after the dilatation procedure found a small sliding hiatal hernia, but no narrowing, mass, or signs of aspiration. You were also evaluated by a speech and swallow specialist, who recommended trial of chopped diet with 1-2 soft items per tray with thin liquids. You are being transferred to a snf facility. Diet: -Continue with a chopped, diabetic diet with 1-2 soft items per tray, with thin liquids. Medications: -Continue with your regular home medications as prescribed with the following additions: 1)You can take Seroquel 50mg at bedtime as needed for sleep or agitation. 2) Take Protonix 40mg daily 3) Take Gaviscon 15-30cc every 6 hours as needed for heartburn Follow-ups: -Make an appointment to see your primary care physician in 1-2 weeks for post- hospitalization evaluation. -Make an appointment to see Dr. Barnard in 2 weeks for post-procedure evaluation. If your trouble swallowing recurs you will need EGD (endoscopy) with dilatation in 3 years. Please return to the Emergency Department if you have any can't tolerated any food or drink by mouth or have any new, worsening, or concerning symptoms. Referrals: Segundo Barnard MD [Staff Physician] - Denilson Gregorio MD [Primary Care Provider] - Disposition: HOME - Home Medications Comprehensive Discharge Medication List: Ambulatory Orders Allopurinol [Zyloprim -] 200 mg PO DAILY 07/31/17 Alpha Lipoic Acid 300 mg PO BID 07/31/17 Aspirin [ASA -] 325 mg PO DAILY 07/31/17 Cranberry Conc/Ascorbic Acid [Cranberry Plus Vitamin C Sftgl] 2 each PO DAILY Donepezil HCl [Aricept] 10 mg PO DAILY 07/31/17 Dutasteride [Avodart] 0.5 mg PO DAILY 07/31/17 Isosorbide Mononitrate [Imdur] 60 mg PO DAILY 07/31/17 Memantine HCl [Namenda Xr] 28 mg PO DAILY 07/31/17 Multivit-Mins/Iron/Folic/Lycop [Centrum Men's Tablet] 1 each PO DAILY 07/31/17 Omeprazole Magnesium [Prilosec Otc] 20 mg PO DAILY 07/31/17 Pioglitazone HCl [Actos] 15 mg PO DAILY 07/31/17 Rosuvastatin [Crestor -] 5 mg PO HS 07/31/17 Metoprolol Succinate [Toprol Xl] 100 mg PO DAILY 08/05/17 Quetiapine Fumarate [Seroquel -] 50 mg PO HS PRN tablet 08/05/17 This patient is new to me today: No Emergency Visit: No Critical Care patient: No - Discharge Referral Referred to [facility] No
== END 2017-08-05 18:01 | disposition home or self-care (01) | DRG 391 ==
LOC: JER 11:03 → JERBED 13:43 → J6S 15:34
PROVIDERS: ADMIT Internal Medicine; ATTEND Hospitalist
PROC: 0DD98ZX Extraction of Duodenum, Via Natural or Artificial Opening Endoscopic, Diagnostic (ICD-10-PCS; 2017-08-03)
PROC: 0DD68ZX Extraction of Stomach, Via Natural or Artificial Opening Endoscopic, Diagnostic (ICD-10-PCS; 2017-08-03)
PROC: 0DD58ZX Extraction of Esophagus, Via Natural or Artificial Opening Endoscopic, Diagnostic (ICD-10-PCS; 2017-08-03)
PROC: 0D758ZZ Dilation of Esophagus, Via Natural or Artificial Opening Endoscopic (ICD-10-PCS; principal; 2017-08-03 10:30)
DX: K22.2 Esophageal obstruction (principal); E43 Unspecified severe protein-calorie malnutrition; F05 Delirium due to known physiological condition; E11.9 Type 2 diabetes mellitus without complications; I25.10 Atherosclerotic heart disease of native coronary artery without angina pectoris; I13.10 Hypertensive heart and chronic kidney disease without heart failure, with stage 1 through stage 4 chronic kidney disease, or unspecified chronic kidney disease; D64.9 Anemia, unspecified; N18.2 Chronic kidney disease, stage 2 (mild); K29.50 Unspecified chronic gastritis without bleeding; R13.10 Dysphagia, unspecified; Z98.61 Coronary angioplasty status; E78.5 Hyperlipidemia, unspecified; Z68.25 Body mass index [BMI] 25.0-25.9, adult; G30.9 Alzheimer's disease, unspecified; F02.80 Dementia in other diseases classified elsewhere, unspecified severity, without behavioral disturbance, psychotic disturbance, mood disturbance, and anxiety; G47.00 Insomnia, unspecified; E87.6 Hypokalemia; K21.9 Gastro-esophageal reflux disease without esophagitis; N40.0 Benign prostatic hyperplasia without lower urinary tract symptoms; R33.9 Retention of urine, unspecified; G62.9 Polyneuropathy, unspecified; M10.9 Gout, unspecified
CPT/HCPCS: 36415; 71260-TC; 74177-TC; 74220-TC-FY; 74230-TC-FY; 74240-TC-FY; 80048; 80053; 81003; 81015; 82550; 82553; 82728; 82962; 83540; 83550; 83690; 83735; 84100; 84484; 85025; 85027; 85610; 85730; 87086; 88305-TC; 92611-GN; 93005; 93010; 99284-25; J1644

== ENCOUNTER 2017-12-02 08:31 | Inpatient (IN) | payer OTHER, BC ==
--- NOTE | 2017-12-02 09:15 | PDOC ---
History of Present Illness - General History Source: Patient, Family - History of Present Illness Initial Comments: 12/02/17 09:56 The patient is a 87 year old male with a significant PMH of hypertension, hyperlipidemia, B/L cataracts, alzheimer dementia, CAD s/p 2 stents, pupil deformity s/p trauma with nail, esophageal stricture s/p dilation presenting with 1 week history of difficulty tolerating food by mouth. As per the patient s family, the patient had an esophageal stricture and was dilated in July and was doing well for the past 4 months. Patient was on a chopped diet and was switched to a ground diet last night. Family notices that he has been vomiting and spitting up any water or food this past week. Patient follows with Dr. Barnard, gastroenterology, who advised them to come to the ER. Family is also concerned about low heart rate after being put on another hypertension medication. Patient follows with Dr. Alejo, cardiology. The patient denies chest pain, shortness of breath, headache and dizziness. Endorses constipation but denies fever, chills, diarrhea. Denies dysuria, frequency, urgency and hematuria. Allergies: ibuprofen, penicillins Social history: Patient lives at home alone. PCP: Dr. Denilson Gregorio GI: Dr. Barnard <Carli Duong - Last Filed: 12/02/17 09:57> <Tyler Campbell - Last Filed: 12/02/17 13:20> - General Chief Complaint: Dysphagia Stated Complaint: SWALLOWING PROBLEMS Time Seen by Provider: 12/02/17 09:06 Past History <Carli Duong - Last Filed: 12/02/17 09:57> - Past Medical History Anemia: No Asthma: No Cancer: No Cardiac Disorders: Yes (CARDIAC STENTS) CVA: No COPD: No CHF: No DVT: No Dementia: Yes (slight) Diabetes: Yes GI Disorders: Yes (H/O COLON POLYPS) Disorders: No HTN: Yes Hypercholesterolemia: Yes Liver Disease: No Seizures: No Thyroid Disease: No - Surgical History Abdominal Surgery: No Appendectomy: No Cardiac Surgery: Yes (STENT) Cholecystectomy: No Lung Surgery: No Neurologic Surgery: No Orthopedic Surgery: Yes (BACK SURGERY) - Immunization History Td Vaccination: Yes Immunization Up to Date: Yes - Suicide/Smoking/Psychosocial Hx Smoking Status: Yes Smoking History: Never smoked Years of Tobacco Use: 45 Have you smoked in the past 12 months: No Number of Cigarettes Smoked Daily: 0 If you are a former smoker, when did you quit?: quit 1991 Cigars Per Day: 0 Information on smoking cessation initiated: No Hx Alcohol Use: No Drug/Substance Use Hx: No Substance Use Type: None Hx Substance Use Treatment: No <Tyler Campbell - Last Filed: 12/02/17 13:20> - Past Medical History Allergies/Adverse Reactions: Allergies Allergy/AdvReac Type Severity Reaction Status Date / Time ibuprofen Allergy Rash Verified 07/31/17 11:07 Penicillins Allergy Rash Verified 07/31/17 11:07 Home Medications: Ambulatory Orders Allopurinol [Zyloprim -] 100 mg PO DAILY 12/02/17 Amlodipine Besylate [Norvasc -] 2.5 mg PO DAILY 12/02/17 Aspirin [Ecotrin] 81 mg PO DAILY 12/02/17 Cholecalciferol (Vitamin D3) [Vitamin D3 -] 400 unit PO DAILY 12/02/17 Cranberry Fruit Extract [Cranberry] 500 mg PO DAILY 12/02/17 Donepezil HCl [Aricept -] 10 mg PO DAILY 12/02/17 Dutasteride [Avodart] 0.5 mg PO DAILY 12/02/17 Isosorbide Mononitrate [Isosorbide Mononitrate ER] 60 mg PO DAILY 12/02/17 Lidocaine 5% Patch [Lidoderm Patch -] 1 patch TP DAILY 12/02/17 Memantine HCl [Namenda Xr] 28 mg PO DAILY 12/02/17 Metoprolol Succinate [Toprol Xl] 100 mg PO DAILY 12/02/17 Multivit-Min/FA/Lycopen/Lutein [Centrum Silver Men Tablet] 1 each PO DAILY 12/02 Nitroglycerin [Nitrostat] 0.4 mg SL PRN 12/02/17 Omeprazole Magnesium [Prilosec Otc] 20 mg PO DAILY 12/02/17 Pioglitazone HCl [Actos] 15 mg PO DAILY 12/02/17 Rosuvastatin Calcium [Crestor] 40 mg PO HS 12/02/17 Review of Systems - Review of Systems Able to Perform ROS?: Yes (limited 2/2 pt dementia) <Carli Duong - Last Filed: 12/02/17 09:57> *Physical Exam - Vital Signs Last Vital Signs Temp Pulse Resp BP Pulse Ox 98.2 F 46 L 16 124/65 94 L 12/02/17 08:43 12/02/17 08:43 12/02/17 08:43 12/02/17 08:43 12/02/17 08:43 - Physical Exam Comments: 12/02/17 09:57 GENERAL: The patient is awake, Nontoxic - in no acute distress. HEAD: Normocephalic, atraumatic. EYES: extraocular movements intact, sclera anicteric, conjunctiva clear. ENT: Normal voice, Moist mucous membranes. NECK: Normal range of motion, supple LUNGS: Breath sounds equal, clear to auscultation bilaterally. No wheezes, no rhonchi, no rales. HEART: bradycardic ABDOMEN: Soft, nontender, No guarding, no rebound. . No CVA tenderness EXTREMITIES: Normal range of motion, no edema. NEUROLOGICAL: No facial assymetry, Normal speech, PSYCH: Normal mood, normal affect. SKIN: Warm, Dry, normal turgor, <Carli Duong - Last Filed: 12/02/17 09:57> - Vital Signs Last Vital Signs Temp Pulse Resp BP Pulse Ox 98.2 F 46 L 16 124/65 94 L 12/02/17 08:43 12/02/17 08:43 12/02/17 08:43 12/02/17 08:43 12/02/17 08:43 <Tyler Campbell - Last Filed: 12/02/17 13:20> Heart Score/ECG Review - ECG Impressions Comment:: 12/02/17 11:32 Twelve-lead EKG was performed and reviewed by me. There is normal sinus rhythm with a rate of 47 Right bundle-branch block Impression sinus bradycardia <Tyler Campbell - Last Filed: 12/02/17 13:20> ED Treatment Course - LABORATORY CBC & Chemistry Diagram: 12/02/17 09:37 12/02/17 09:37 <Carli Duong - Last Filed: 12/02/17 09:57> - LABORATORY CBC & Chemistry Diagram: 12/02/17 09:37 12/02/17 12:00 <Tylre Campbell - Last Filed: 12/02/17 13:20> Medical Decision Making - Medical Decision Making 12/02/17 09:19 The patient is a 86 year old male, with a significant PMH of hypertension, hyperlipidemia, B/L cataracts, alzheimer dementia, CAD s/p 2 stents, pupil deformity s/p trauma, hx of espophageal stricture s/p dilation in july presents with recurrence of symptoms the past few days. Family notes he is spitting up/vomiting after eating. pt denies any current pain, fever/chills, diarrhea, hematuria, cp, sob, dysuria. on exam pt well appaering in no distress, HR noted to be low (Family notes recent change to bp meds - pt on toprol xl 100 mg daily and norvasc 2.5mg daily. will discuss w dr. sears regarding GI symptoms, anticipate possible admission <Tyler Campbell - Last Filed: 12/02/17 13:20> *DC/Admit/Observation/Transfer - Attestations Scribe Attestion: 12/02/17 09:57 Documentation prepared by Carli Duong, acting as emergency medical technician basic for Tyler Campbell MD. <Carli Duong - Last Filed: 12/02/17 09:57> - Discharge Dispostion Decision to Admit order: Yes <Tyler Campbell - Last Filed: 12/02/17 13:20> Diagnosis at time of Disposition: Dehydration, Bradycardia Dysphagia Qualifiers: Dysphagia type: unspecified Qualified Code(s): R13.10 - Dysphagia, unspecified - Discharge Dispostion Condition at time of disposition: Stable - Referrals Referrals: Denilson Gregorio MD [Primary Care Provider] -
[2017-12-02 09:58] LABS: BASO % 0.7 % (0-2.0); EOS % 1.2 % (0-4.5); HEMATOCRIT 35.1 % (35.4-49); HEMOGLOBIN 11.7 GM/dL (11.7-16.9); LYMPH % 19.2 % (8-40); MCH 29.1 pg (25.7-33.7); MCHC 33.2 g/dl (32.0-35.9); MEAN CELL VOLUME 87.6 fl (80-96); MONO % 10.5 % (3.8-10.2); NEUT % 68.4 % (42.8-82.8); PLATELET COUNT 158 K/MM3 (134-434); RBC 4.01 M/mm3 (4.00-5.60)
[2017-12-02 10:13] LABS: INR 1.17 (0.83-1.09); PROTHROMBIN TIME (PATIENT) 13.2 SEC (9.7-13.0)
[2017-12-02 12:48] LABS: ALBUMIN 3.8 g/dl (3.4-5.0); ANION GAP 7 MMOL/L (8-16); BLOOD UREA NITROGEN 25 mg/dL (7-18); CHLORIDE 107 mmol/L (98-107); CO2 30 mmol/L (21-32); CREATININE 1.4 mg/dL (0.7-1.3); GLUCOSE,RANDOM 91 mg/dL (74-106); POTASSIUM 4.1 mmol/L (3.5-5.1); SGOT/AST 24 U/L (15-37); SGPT/ALT 24 U/L (12-78); SODIUM 144 mmol/L (136-145)
[2017-12-02 12:50] LABS: ALK PHOS 73 U/L (45-117); BILIRUBIN,TOTAL 0.7 mg/dL (0.2-1.0); TOT PROT 6.7 g/dl (6.4-8.2)
--- NOTE | 2017-12-02 14:21 | HP ---
PCP: Denilson Gregorio CHIEF COMPLAINT: Unable to swallow HISTORY OF PRESENT ILLNESS: This is an 87 year old man who comes to the ED from [facility] on [place] today because of difficulty swallowing. The patient says he isn 't doing very well and is unable to provide a history secondary to dementia. Family reports that he has been on a chopped diet and for the last week he appeared to be having difficulty swallowing and was spitting up food. They've noticed he has been having difficulty with liquids for the last few days. He had undergone dilation of an esophageal stricture by Dr. Barnard in July. Family also reports his heart rate has been low and that he had been started on Norvasc in addition to Toprol XL while at [facility] on [place]. He denies chest pain , abdominal pain, nausea, palpitations, SOB. PAST MEDICAL HISTORY CAD Hypertension Hyperlipidemia Type 2 diabetes mellitus Alzheimer dementia Esophageal stricture Lumbar spinal stenosis GERD BPH PAST SURGICAL HISTORY Cardiac stents Bilateral cataracts Lumbar laminectomy Allergies ibuprofen Allergy (Verified 07/31/17 11:07) Rash Penicillins Allergy (Verified 07/31/17 11:07) Rash Home Medications Medication Instructions Recorded Allopurinol [Zyloprim -] 100 mg PO DAILY 12/02/17 Amlodipine Besylate [Norvasc -] 2.5 mg PO DAILY 12/02/17 Aspirin [Ecotrin] 81 mg PO DAILY 12/02/17 Cholecalciferol (Vitamin D3) 400 unit PO DAILY 12/02/17 [Vitamin D3 -] Cranberry Fruit Extract [Cranberry] 500 mg PO DAILY 12/02/17 Donepezil HCl [Aricept -] 10 mg PO DAILY 12/02/17 Dutasteride [Avodart] 0.5 mg PO DAILY 12/02/17 Isosorbide Mononitrate [Isosorbide 60 mg PO DAILY 12/02/17 Mononitrate ER] Lidocaine 5% Patch [Lidoderm Patch 1 patch TP DAILY 12/02/17 -] Memantine HCl [Namenda Xr] 28 mg PO DAILY 12/02/17 Metoprolol Succinate [Toprol Xl] 100 mg PO DAILY 12/02/17 Multivit-Min/FA/Lycopen/Lutein 1 each PO DAILY 12/02/17 [Centrum Silver Men Tablet] Nitroglycerin [Nitrostat] 0.4 mg SL PRN 12/02/17 Omeprazole Magnesium [Prilosec Otc] 20 mg PO DAILY 12/02/17 Pioglitazone HCl [Actos] 15 mg PO DAILY 12/02/17 Rosuvastatin Calcium [Crestor] 40 mg PO HS 12/02/17 Social History: Smoking: Quit 25 years ago - 40 pack year history Alcohol: None Drugs: None Recent Travel: No Family History: Non-contributory REVIEW OF SYSTEMS CONSTITUTIONAL: Absent: fever, chills, diaphoresis, generalized weakness, malaise, loss of appetite, weight change HEENT: Present: difficulty swallowing. Absent: rhinorrhea, nasal congestion, throat pain, throat swelling, mouth swelling, ear pain, eye pain, visual changes CARDIOVASCULAR: Absent: chest pain, syncope, palpitations, lightheadedness, peripheral edema RESPIRATORY: Absent: cough, shortness of breath, dyspnea with exertion, orthopnea, wheezing, stridor, hemoptysis GASTROINTESTINAL: Absent: abdominal pain, abdominal distension, nausea, vomiting , diarrhea, constipation, melena, hematochezia GENITOURINARY: Absent: dysuria, frequency, urgency, hesitancy, hematuria, flank pain MUSCULOSKELETAL: Absent: myalgia, arthralgia, joint swelling, back pain, neck pain SKIN: Absent: rash, itching, pallor HEMATOLOGIC/IMMUNOLOGIC: Absent: easy bleeding, easy bruising, lymphadenopathy, frequent infections ENDOCRINE: Absent: unexplained weight gain, unexplained weight loss, heat intolerance, cold intolerance NEUROLOGIC: Absent: headache, focal weakness, paresthesias, dizziness, unsteady gait, seizure, mental status changes, bladder or bowel incontinence PSYCHIATRIC: Absent: anxiety, depression, suicidal or homicidal ideation, hallucinations. PHYSICAL EXAMINATION Vital Signs - 24 hr 12/02/17 12/02/17 08:43 13:58 Temperature 98.2 F 98.1 F Pulse Rate 46 L Pulse Rate [ 46 L Apical] Respiratory 16 20 Rate Blood Pressure 124/65 Blood Pressure 121/60 [Right Arm] O2 Sat by Pulse 94 L 96 Oximetry (%) GENERAL: Awake, alert, and oriented to person, in no acute distress. HEAD: Normal with no signs of trauma. EYES: Pupils reactive to light, extraocular movements intact, sclerae anicteric , conjunctivae clear. EARS, NOSE, THROAT: Ears normal, nares patent, oropharynx clear without exudates. Moist mucous membranes. NECK: Normal range of motion, supple without lymphadenopathy, JVD, or masses. LUNGS: Breath sounds equal, clear to auscultation bilaterally. No wheezes, and no crackles. No accessory muscle use. HEART: Regular rhythm, bradycardic, normal S1 and S2 with 2/6 systolic murmur. ABDOMEN: Soft, nontender, not distended, normoactive bowel sounds, no guarding, no rebound, no masses. No hepatomegaly or splenomegaly. MUSCULOSKELETAL: Normal range of motion at all joints. No bony deformities or tenderness. No CVA tenderness. UPPER EXTREMITIES: 2+ pulses, warm, well-perfused. No cyanosis. No clubbing. No peripheral edema. LOWER EXTREMITIES: 2+ pulses, warm, well-perfused. No calf tenderness. No peripheral edema. NEUROLOGICAL: Cranial nerves II-XII intact. Normal speech. Gait not observed. SKIN: Warm, dry, normal turgor, no rashes or lesions noted, normal capillary refill. Laboratory Results - last 24 hr 12/02/17 12/02/17 12/02/17 09:37 09:37 09:37 WBC 5.0 RBC 4.01 Hgb 11.7 Hct 35.1 L MCV 87.6 MCH 29.1 MCHC 33.2 RDW 16.0 H Plt Count 158 D MPV 8.0 D Absolute Neuts (auto) 3.4 Neutrophils % 68.4 Lymphocytes % 19.2 D Monocytes % 10.5 H Eosinophils % 1.2 Basophils % 0.7 Nucleated RBC % 0 PT with INR 13.20 H INR 1.17 H Sodium Cancelled Potassium Cancelled Chloride Cancelled Carbon Dioxide Cancelled Anion Gap Cancelled BUN Cancelled Creatinine Cancelled Creat Clearance w eGFR Cancelled Random Glucose Cancelled Calcium Cancelled Total Bilirubin Cancelled AST Cancelled ALT Cancelled Alkaline Phosphatase Cancelled Total Protein Cancelled Albumin Cancelled Blood Type Antibody Screen 12/02/17 12/02/17 09:37 12:00 WBC RBC Hgb Hct MCV MCH MCHC RDW Plt Count MPV Absolute Neuts (auto) Neutrophils % Lymphocytes % Monocytes % Eosinophils % Basophils % Nucleated RBC % PT with INR INR Sodium 144 Potassium 4.1 Chloride 107 Carbon Dioxide 30 Anion Gap 7 L BUN 25 H Creatinine 1.4 H Creat Clearance w eGFR 47.83 Random Glucose 91 Calcium 9.0 Total Bilirubin 0.7 AST 24 D ALT 24 Alkaline Phosphatase 73 Total Protein 6.7 Albumin 3.8 Blood Type Cancelled Antibody Screen Cancelled ASSESSMENT/PLAN: This is an 87 year old man with a history of esophageal stricture, CAD, HTN, hyperlipidemia, type 2 DM, Alzheimer dementia, GERD, BPH who presents to the ED today from [facility] for progressive dysphagia and bradycardia. 1. Dysphagia secondary to presumed esophageal stricture - NPO - IV fluid - GI consult for EGD - Cardiology evaluation of bradycardia prior to any procedure 2. Sinus bradycardia - Monitor on telemetry - Hold Toprol XL pending cardiology evaluation 3. CAD, history of stents - Continue aspirin, Crestor, Imdur - Hold Toprol XL secondary to bradycardia 4. HTN - Hold Toprol XL secondary to bradycardia - Continue Norvasc 5. Hyperlipidemia - Continue Crestor 6. Alzheimer dementia - Continue Aricept, Namenda 7. Type 2 DM - Hold Actos - Fingersticks with Novolog sliding scale 8. GERD - Continue Prilosec 9. BPH - Continue Avodart Visit type - Emergency Visit Emergency Visit: Yes ED Registration Date: 12/02/17 Care time: The patient presented to the Emergency Department on the above date and was hospitalized for further evaluation of their emergent condition. - New Patient This patient is new to me today: Yes Date on this admission: 12/02/17 - Critical Care Critical Care patient: No Hospitalist Screening - Colonoscopy Questionnaire Colonoscopy Questionnaire: Colonoscopy Questionnaire - Patient: 50 - 75 years old and never had a screening colonoscopy: No History of colon or rectal polyps, or CA: No History of IBD, Crohn's disease or UC: No History of abdominal radiation therapy as a child: No - Relative: 1 with colon or rectal CA, or polyps at age 60 or younger: No Colon or rectal CA diagnosed at age 45 or younger: No Multiple relatives with colon or rectal CA: No - Outcome: Screening Result: Negative Screen
[2017-12-02] MEDS ORDERED: NITROGLYCERIN SUBLINGUAL 1/150 0.4 MG TAB SL PRN (14:30)
[2017-12-02] MEDS ORDERED: HEMOQUE TEST 1 EACH EACH ONE (18:19)
[2017-12-02] MEDS ORDERED: ACETAMINOPHEN 325 MG TABLET (FP) ONE (18:20)
[2017-12-02] MEDS: SODIUM CHLORIDE 1,000 ML IV SCH (18:20)
[2017-12-02] MEDS: INSULIN SLIDING SCALE (NOVOLOG) 1 VIAL SQ SCH ×2 (18:27→21:02)
[2017-12-02] MEDS: ACETAMINOPHEN 325 MG TABLET (FP) PO PRN (18:30)
--- NOTE | 2017-12-02 18:31 | CON.CARD ---
Consult Consult Specialty:: Cardiology Referred by:: Tyler Ahuja MD Reason for Consultation:: Bradycardia - History of Present Illness Chief Complaint: Dysphagia, odynaphagia -> recurrent esophageal stricture History of Present Illness: 87-year-old male with known history of coronary artery disease status post percutaneous coronary intervention stenting April 11, 2002 (RCA stent patent on cardiac catheterization coronary angiography November 30, 2003) negative pharmacologic (Lexiscan) myocardial perfusion imaging study for myocardial ischemia January 15, 2016 angina pectoris, diastolic left ventricular dysfunction with class 0-I [place] Heart Association classification left ventricular failure, mitral valve regurgitation mild in severity of no clinical significance on echocardiography performed February 05, 2017, aortic valve regurgitation mild to moderate in severity on echocardiography performed January 10, 2016, tricuspid valve regurgitation mild to moderate in severity with RVSP of 33 mmHg on echocardiography performed January 10, 2016 and 29 mmHg on echocardiography performed February 05, 2017, hypertensive cardiovascular disease, [id number] diabetes mellitus, hypercholesterolemia, carotid stenosis mild in severity on carotid Doppler study performed January 16, 2016, organic brain syndrome/dementia, chronic obstructive pulmonary disease, gastroesophageal reflux disease, Schatzki's ring , esophageal stricture s/p dilataion chronic kidney disease, benign prostatic hypertrophy, 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 As per the patients family, the patient had an esophageal stricture and was dilated in July and was doing well for the past 4 months. Patient was on a chopped diet and was switched to a ground diet last night. Family notices that he has been vomiting and spitting up any water or food this past week. Patient follows with Dr. Barnard, gastroenterology , who advised them to come to the ER. UGI series shows luminal narrowing, esophogeal dysmotility and delayed emptying. Noted to be in asymptomatic sinus bradycardia, Toprol XL d/estela. The patient denies chest pain, shortness of breath , headache, dizziness, abd pain, nausea or emesis. Allergies: ibuprofen, penicillins Social history: Patient lives at home alone. PCP: Dr. Denilson Gregorio GI: Dr. Barnard - History Source History Provided By: Patient Limitations to Obtaining History: No Limitations - Past Medical History [employer]: Yes: Dementia Cardio/Vascular: Yes: CAD (coronary stenting 2001), HTN, Hyperlipdemia Pulmonary: Yes: COPD Gastrointestinal: Yes: GERD, Other (Rectal polyp rmeoved. 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 History of Recent Travel: No Home Medications - Allergies Allergies/Adverse Reactions: Allergies Allergy/AdvReac Type Severity Reaction Status Date / Time ibuprofen Allergy Rash Verified 07/31/17 11:07 Penicillins Allergy Rash Verified 07/31/17 11:07 - Home Medications Home Medications: Ambulatory Orders Allopurinol [Zyloprim -] 100 mg PO DAILY 12/02/17 Amlodipine Besylate [Norvasc -] 2.5 mg PO DAILY 12/02/17 Aspirin [Ecotrin] 81 mg PO DAILY 12/02/17 Cholecalciferol (Vitamin D3) [Vitamin D3 -] 400 unit PO DAILY 12/02/17 Cranberry Fruit Extract [Cranberry] 500 mg PO DAILY 12/02/17 Donepezil HCl [Aricept -] 10 mg PO DAILY 12/02/17 Dutasteride [Avodart] 0.5 mg PO DAILY 12/02/17 Isosorbide Mononitrate [Isosorbide Mononitrate ER] 60 mg PO DAILY 12/02/17 Lidocaine 5% Patch [Lidoderm Patch -] 1 patch TP DAILY 12/02/17 Memantine HCl [Namenda Xr] 28 mg PO DAILY 12/02/17 Metoprolol Succinate [Toprol Xl] 100 mg PO DAILY 12/02/17 Multivit-Min/FA/Lycopen/Lutein [Centrum Silver Men Tablet] 1 each PO DAILY 12/02 Nitroglycerin [Nitrostat] 0.4 mg SL PRN 12/02/17 Omeprazole Magnesium [Prilosec Otc] 20 mg PO DAILY 12/02/17 Pioglitazone HCl [Actos] 15 mg PO DAILY 12/02/17 Rosuvastatin Calcium [Crestor] 40 mg PO HS 12/02/17 Family Disease History - Family Disease History Family Disease History: Heart Disease: Father ( [place] in his 60s), CA: Mother ( of stomach cancer in her 80s), Sister (2 colon ca, 1 - pancreatic ca, 1 - gastric ca) Review of Systems - Review of Systems Gastrointestinal: reports: Dysphagia Vital Signs: Vital Signs Temperature 98.1 F 12/02/17 13:58 Pulse Rate 46 L 12/02/17 13:58 Respiratory Rate 20 12/02/17 13:58 Blood Pressure 121/60 12/02/17 13:58 O2 Sat by Pulse Oximetry (%) 96 12/02/17 13:58 Constitutional: Yes: No Distress, Calm, Thin Neck: Yes: Supple Respiratory: Yes: Regular, CTA Bilaterally Gastrointestinal: Yes: Soft, Hypoactive Bowel Sounds Cardiovascular: Yes: Bradycardia JVD: No Carotid Bruit: No Heart Sounds: Yes: S1, S2 Murmur: Yes: Systolic Murmur, Grade 1 Edema: No - Other Data Labs, Other Data: CBC, BMP 12/02/17 09:37 12/02/17 12:00 INR, PTT INR 1.17 (0.83-1.09) H 12/02/17 09:37 SB @ 47 RBBB Ejection Fraction %: LVEF > or = 40 % Problem List - Problems (1) Bradycardia Code(s): R00.1 - BRADYCARDIA, UNSPECIFIED (2) COPD (chronic obstructive pulmonary disease) Code(s): J44.9 - CHRONIC OBSTRUCTIVE PULMONARY DISEASE, UNSPECIFIED Qualifiers: Chronic bronchitis type: unspecified (3) Dementia Code(s): F03.90 - UNSPECIFIED DEMENTIA WITHOUT BEHAVIORAL DISTURBANCE Qualifiers: Dementia type: unspecified type (4) Dysphagia Code(s): R13.10 - DYSPHAGIA, UNSPECIFIED Qualifiers: Dysphagia type: esophageal phase Qualified Code(s): R13.10 - Dysphagia, unspecified (5) Hyperlipidemia Code(s): E78.5 - HYPERLIPIDEMIA, UNSPECIFIED Qualifiers: Hyperlipidemia type: pure hypercholesterolemia Qualified Code(s): E78.00 - Pure hypercholesterolemia, unspecified; E78.0 - Pure hypercholesterolemia (6) Hypertension Code(s): I10 - ESSENTIAL (PRIMARY) HYPERTENSION Qualifiers: Hypertension type: essential hypertension Qualified Code(s): I10 - Essential (primary) hypertension (7) Renal insufficiency Code(s): N28.9 - DISORDER OF KIDNEY AND URETER, UNSPECIFIED (8) Esophageal stricture Code(s): K22.2 - ESOPHAGEAL OBSTRUCTION (9) Status post dilatation of esophageal stricture Code(s): Z98.890 - OTHER SPECIFIED POSTPROCEDURAL STATES; Z87.19 - PERSONAL HISTORY OF OTHER DISEASES OF THE DIGESTIVE SYSTEM Assessment/Plan Echocardiography performed February 05, 2017 revealed overall preserved left ventricular systolic function with estimated left ventricular ejection fraction between 70-75%, mitral annular calcification, aortic valve leaflet sclerosis, mild mitral valve regurgitation, mild aortic valve regurgitation, mild tricuspid valve regurgitation with calculated RVSP of 29 mmHg. Echocardiography performed January 10, 2016 revealed overall preserved left ventricular systolic function, mitral annular calcification, aortic valve leaflet sclerosis, mild mitral valve regurgitation, mild to moderate aortic and tricuspid valve regurgitation with calculated RVSP of 33 mmHg. Pharmacologic (Lexiscan) myocardial perfusion imaging study performed January reveal small size inferior, infero-basal wall defect compatible with diaphragmatic attenuation with normal left ventricular contraction pattern on LV gated analysis with calculated left and degree ejection fraction of 77% at rest and 80% post Lexiscan infusion. ASSESSMENT: 1. Dysphagia/odynophagia referable to recurrent Schatzki's ring, esophageal stricture and dysmotility post dilatation 2. Sinus bradycardia suspect medication effects and possible sick sinus syndrome 3. Chest pain syndrome in a patient with known history of coronary artery disease status post percutaneous coronary intervention stenting negative pharmacologic (Lexiscan) myocardial perfusion imaging study for myocardial ischemia angina pectoris, stable. 3. Diastolic left ventricular dysfunction with class I [place] Heart Association classification left ventricular failure, compensated/euvolemic. 4. Mitral valve regurgitation mild in severity of no clinical significance. 5. Aortic valve regurgitation mild to moderate in severity. 6. Tricuspid valve regurgitation mild to moderate in severity with RVSP of 33 mmHg on echocardiography performed January 10, 2016. 7. Persistent dizziness etiology of which remains unclear differential diagnosis includes benign positional vertigo and in addition component of postural hypotension to be considered which could be related to autonomic dysfunction in conjunction with his Parkinson's disease. 8. Hypertensive cardiovascular disease, at goal. 9. [id number]-homdnnxvr diabetes mellitus. 10. Hypercholesterolemia, at goal. 11. Carotid stenosis mild in severity, asymptomatic. 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 13. History of chronic obstructive pulmonary disease. 14. History of gastroesophageal reflux disease. 15. Chronic kidney disease. 16. History of benign prostatic hypertrophy. 17. 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 18. History of degenerative joint disease. 19. History of gout/hyperuricemia. PLAN: 1. Chopped diet, considering repeat dilatation 2. Agree with change Toprol XL 100 qd to Norvasc 2.5 qd, continue Imdur 60 qd as hemodynamics tolerate, ASA 81 qd, Crestor 5 qd, 3. Observe heart rate recovery off beta blockers 4. Thank you for consultative opportunity
--- NOTE | 2017-12-02 20:12 | EKG ---
Test Reason : Blood Pressure : / mmHG Vent. Rate : 047 BPM Atrial Rate : 047 BPM P-R Int : 194 ms QRS Dur : 136 ms QT Int : 480 ms P-R-T Axes : 067 -07 025 degrees QTc Int : 424 ms SINUS BRADYCARDIA RIGHT BUNDLE BRANCH BLOCK ABNORMAL ECG WHEN COMPARED WITH ECG OF 31-JUL-2017 13:36, NO SIGNIFICANT CHANGE WAS FOUND Confirmed by RANJANA ANAYA MD ([id number]) on 12/02/2017 8:11:59 PM Referred By: Confirmed By:RANJANA ANAYA MD
[2017-12-02] MEDS ORDERED: DEXTROSE 50%-WATER - 25 GM/50 ML VIAL IVPUSH PRN (21:54)
[2017-12-02] MEDS ORDERED: ROSUVASTATIN CA 40 MG TABLET PO SCH (22:00)
[2017-12-03] MEDS: INSULIN SLIDING SCALE (NOVOLOG) 1 VIAL SQ SCH ×4 (06:21→23:41)
[2017-12-03 07:20] LABS: HEMOGLOBIN 11.4 GM/dL (11.7-16.9); MCH 28.6 pg (25.7-33.7); MCHC 32.6 g/dl (32.0-35.9); MEAN CELL VOLUME 87.7 fl (80-96); MEAN PLT VOLUME 7.7 fl (7.5-11.1); PLATELET COUNT 143 K/MM3 (134-434); RDW 16.2 % (11.9-15.9); WHITE BLOOD COUNT 4.9 K/mm3 (4.0-10.0)
[2017-12-03 07:39] LABS: ANION GAP 7 MMOL/L (8-16); BLOOD UREA NITROGEN 24 mg/dL (7-18); CALCIUM 8.3 mg/dL (8.5-10.1); CHLORIDE 107 mmol/L (98-107); CO2 29 mmol/L (21-32); CREATININE 1.3 mg/dL (0.7-1.3); GLUCOSE,RANDOM 75 mg/dL (74-106); POTASSIUM 3.6 mmol/L (3.5-5.1); SODIUM 143 mmol/L (136-145)
[2017-12-03 08:12] LABS: URINE APPEARANCE CLEAR; URINE BILIRUBIN NEGATIVE (<2.0 mg/dL); URINE COLOR LTYELLOW; URINE GLUCOSE (UA) NEGATIVE (NEGATIVE); URINE KETONE NEGATIVE (NEGATIVE); URINE LEUK ESTERASE NEGATIVE (NEGATIVE); URINE NITRITE NEGATIVE (NEGATIVE); URINE PROTEIN NEGATIVE (NEGATIVE); URINE UROBILINOGEN NEGATIVE mg/dL (0.2-1.0)
--- NOTE | 2017-12-03 08:39 | CON.GI ---
Consult Consult Specialty:: Gastroenterology Referred by:: Dr Tyler Campbell Reason for Consultation:: Dysphagia - History of Present Illness Chief Complaint: Trouble swallowing solids and liquids History of Present Illness: 87M with h/o a distal esophageal stricture has worsening dysphagia for liquids and solids. I spoke with his daughter. He has diminished oral intake as a reults. He had a swallowing evaluation at the half-way and was not found to have oropharyngeal dysphagia. Yesterday's esophagram reveals a distal esophageal stricture but also reveals esophageal dysmotility. He was also evaluated by Dr. Hernandez for bradycardia. I dilated his stricture to 20mm on - History Source History Provided By: Patient Limitations to Obtaining History: Dementia - Past Medical History COAT BASTER: Yes: Dementia Cardio/Vascular: Yes: CAD (coronary stenting 2001), HTN, Hyperlipdemia Pulmonary: Yes: COPD Gastrointestinal: Yes: GERD (with distal esophageal stricture), Other (Rectal polyp rmeoved. 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 Esophgeal dysmotility) Hepatobiliary: Yes: Other (fatty liver- NAFLD) Renal/: Yes: Renal Inusuff, BPH Endocrine: Yes: Diabetes Mellitus - Past Surgical History Past Surgical History: Yes: Cataract Removal (bilateral), Colonoscopy, Laminectomy (lumbar stenosis surgery), Upper Endoscopy Additional Surgical History: Laura fissurectomy. Hemorrhoidectomy. 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 Place of : [facility] History of Recent Travel: No Home Medications - Allergies Allergies/Adverse Reactions: Allergies Allergy/AdvReac Type Severity Reaction Status Date / Time ibuprofen Allergy Rash Verified 07/31/17 11:07 Penicillins Allergy Rash Verified 07/31/17 11:07 - Home Medications Home Medications: Ambulatory Orders Allopurinol [Zyloprim -] 100 mg PO DAILY 12/02/17 Amlodipine Besylate [Norvasc -] 2.5 mg PO DAILY 12/02/17 Aspirin [Ecotrin] 81 mg PO DAILY 12/02/17 Cholecalciferol (Vitamin D3) [Vitamin D3 -] 400 unit PO DAILY 12/02/17 Cranberry Fruit Extract [Cranberry] 500 mg PO DAILY 12/02/17 Donepezil HCl [Aricept -] 10 mg PO DAILY 12/02/17 Dutasteride [Avodart] 0.5 mg PO DAILY 12/02/17 Isosorbide Mononitrate [Isosorbide Mononitrate ER] 60 mg PO DAILY 12/02/17 Lidocaine 5% Patch [Lidoderm Patch -] 1 patch TP DAILY 12/02/17 Memantine HCl [Namenda Xr] 28 mg PO DAILY 12/02/17 Metoprolol Succinate [Toprol Xl] 100 mg PO DAILY 12/02/17 Multivit-Min/FA/Lycopen/Lutein [Centrum Silver Men Tablet] 1 each PO DAILY 12/02 Nitroglycerin [Nitrostat] 0.4 mg SL PRN 12/02/17 Omeprazole Magnesium [Prilosec Otc] 20 mg PO DAILY 12/02/17 Pioglitazone HCl [Actos] 15 mg PO DAILY 12/02/17 Rosuvastatin Calcium [Crestor] 40 mg PO HS 12/02/17 Family Disease History - Family Disease History Family Disease History: Heart Disease: Father ( CT in his 60s), CA: Mother ( of stomach cancer in her 80s), Sister (2 colon ca, 1 - pancreatic ca, 1 - gastric ca) Review of Systems Unable to obtain ROS, reason: dementia Physical Exam-GI Vital Signs: Vital Signs Temperature 98.1 F 12/03/17 06:00 Pulse Rate 50 L 12/03/17 06:00 Respiratory Rate 18 12/03/17 06:00 Blood Pressure 156/75 12/03/17 06:00 O2 Sat by Pulse Oximetry (%) 95 12/03/17 06:00 CBC,CMP WBC 4.9 K/mm3 (4.0-10.0) 12/03/17 06:55 RBC 4.00 M/mm3 (4.00-5.60) 12/03/17 06:55 Hgb 11.4 GM/dL (11.7-16.9) L 12/03/17 06:55 Hct 35.0 % (35.4-49) L 08/23/18 06:55 MCV 87.7 fl (80-96) 12/03/17 06:55 MCH 28.6 pg (25.7-33.7) 12/03/17 06:55 MCHC 32.6 g/dl (32.0-35.9) 12/03/17 06:55 RDW 16.2 % (11.9-15.9) H 12/03/17 06:55 Plt Count 143 K/MM3 (134-434) 12/03/17 06:55 MPV 7.7 fl (7.5-11.1) 12/03/17 06:55 Absolute Neuts (auto) 3.4 K/mm3 (1.5-8.0) 12/02/17 09:37 Neutrophils % 68.4 % (42.8-82.8) 12/02/17 09:37 Lymphocytes % 19.2 % (8-40) D 12/02/17 09:37 Monocytes % 10.5 % (3.8-10.2) H 12/02/17 09:37 Eosinophils % 1.2 % (0-4.5) 12/02/17 09:37 Basophils % 0.7 % (0-2.0) 12/02/17 09:37 Nucleated RBC % 0 % (0-0) 12/02/17 09:37 Sodium 143 mmol/L (136-145) 12/03/17 06:55 Potassium 3.6 mmol/L (3.5-5.1) 12/03/17 06:55 Chloride 107 mmol/L (98-107) 12/03/17 06:55 Carbon Dioxide 29 mmol/L (21-32) 12/03/17 06:55 Anion Gap 7 MMOL/L (8-16) L 12/03/17 06:55 BUN 24 mg/dL (7-18) H 12/03/17 06:55 Creatinine 1.3 mg/dL (0.7-1.3) 12/03/17 06:55 Creat Clearance w eGFR 52.10 (>60) 12/03/17 06:55 POC Glucometer 78 UNITS (80-120) 12/03/17 06:19 Random Glucose 75 mg/dL (74-106) 12/03/17 06:55 Calcium 8.3 mg/dL (8.5-10.1) L 12/03/17 06:55 Total Bilirubin 0.7 mg/dL (0.2-1.0) 12/02/17 12:00 AST 24 U/L (15-37) D 12/02/17 12:00 ALT 24 U/L (12-78) 12/02/17 12:00 Alkaline Phosphatase 73 U/L (45-117) 12/02/17 12:00 Total Protein 6.7 g/dl (6.4-8.2) 12/02/17 12:00 Albumin 3.8 g/dl (3.4-5.0) 12/02/17 12:00 Current Medications Generic Name Dose Route Start Last Admin Trade Name Freq PRN Reason Stop Dose Admin Acetaminophen 650 mg 12/02/17 14:17 12/02/17 18:30 Tylenol - PO 650 mg Q4H PRN Administration FEVER Allopurinol 100 mg 12/03/17 10:00 Zyloprim - PO DAILY [facility] Amlodipine Besylate 2.5 mg 12/03/17 10:00 Norvasc - PO DAILY [facility] Cholecalciferol 400 unit 12/03/17 10:00 Vitamin D3 - PO DAILY [facility] Dextrose 25 gm 12/02/17 21:54 D50w (Vial) - IVPUSH PRN PRN Hypoglycemia Donepezil HCl 10 mg 12/03/17 10:00 Aricept - PO DAILY [facility] Dutasteride 0.5 mg 12/03/17 10:00 Avodart - PO DAILY [facility] Sodium Chloride 1,000 mls @ 75 mls/hr 12/02/17 14:30 12/02/17 18:20 Normal Saline - IV 75 mls/hr ASDIR [facility] Administration Insulin Aspart 1 vial 12/02/17 16:30 12/03/17 06:21 Novolog Vial Sliding Scale - SQ Not Given ACHS [facility] Protocol Isosorbide Mononitrate 60 mg 12/03/17 10:00 Imdur - PO DAILY [facility] Lidocaine 1 patch 12/03/17 10:00 Lidoderm Patch - TP DAILY [facility] Multivitamins/Minerals 1 each 12/03/17 10:00 Theragran-M PO DAILY [facility] Nitroglycerin 0.4 mg 12/02/17 14:30 Nitrostat - SL PRN PRN CHEST PAINS Non-Formulary Medication 28 mg 12/03/17 10:00 Memantine Hcl [Namenda Xr] PO DAILY [facility] Pantoprazole Sodium 20 mg 12/03/17 10:00 Protonix - PO DAILY [facility] Rosuvastatin Calcium 40 mg 12/03/17 22:00 Crestor - PO HS [facility] Constitutional: Yes: No Distress Eyes: Yes: Conjunctiva Clear HENT: Yes: Normocephalic Neck: Yes: Supple Cardiovascular: Yes: Regular Rate and Rhythm, Bradycardia Respiratory: Yes: CTA Bilaterally Gastrointestinal Inspection: Yes: WNL ...Auscultate: Yes: Normoactive Bowel Sounds ...Palpate: Yes: Soft, Other (nontender) ...Rectal Exam: Yes: Guaiac Negative (2+ prostate, no masses, brown stool guaiac negative) Labs: CBC, BMP 12/03/17 06:55 12/03/17 06:55 INR, PTT INR 1.17 (0.83-1.09) H 12/02/17 09:37 Imaging - Results X-ray: Image Reviewed (esophageal dysmotility with distal esophageal stricture) Problem List - Problems (1) Dysphagia Assessment/Plan: I suspect that the dysphagia is more reflective of the esophageal dysmotility than the stricture but given that he derived benefit from the previous dilation it merits undertaking. I have discussed the potential risks of perforation and hemorrhage with Perry and with his daughter Ivana. She will come in to sign the consent. I have scheduled EGD and and dilation for tomorrow provided that he is cardiologically cleared. His Toprol has been stopped Code(s): R13.10 - DYSPHAGIA, UNSPECIFIED Qualifiers: Dysphagia type: esophageal phase Qualified Code(s): R13.10 - Dysphagia, unspecified (2) Dementia Code(s): F03.90 - UNSPECIFIED DEMENTIA WITHOUT BEHAVIORAL DISTURBANCE (3) COPD (chronic obstructive pulmonary disease) Code(s): J44.9 - CHRONIC OBSTRUCTIVE PULMONARY DISEASE, UNSPECIFIED (4) BPH (benign prostatic hyperplasia) Code(s): N40.0 - BENIGN PROSTATIC HYPERPLASIA WITHOUT LOWER URINRY TRACT SYMP (5) Renal insufficiency Code(s): N28.9 - DISORDER OF KIDNEY AND URETER, UNSPECIFIED (6) Diabetes 1.5, managed as type 2 Code(s): E10.9 - TYPE 1 DIABETES MELLITUS WITHOUT COMPLICATIONS (7) Hypertension Code(s): I10 - ESSENTIAL (PRIMARY) HYPERTENSION (8) Hyperlipidemia Code(s): E78.5 - HYPERLIPIDEMIA, UNSPECIFIED (9) Fatty (change of) liver, not elsewhere classified Code(s): K76.0 - FATTY (CHANGE OF) LIVER, NOT ELSEWHERE CLASSIFIED (10) Angiodysplasia of cecum Code(s): K55.20 - ANGIODYSPLASIA OF COLON WITHOUT HEMORRHAGE (11) Bradycardia Code(s): R00.1 - BRADYCARDIA, UNSPECIFIED (12) Esophageal stricture Code(s): K22.2 - ESOPHAGEAL OBSTRUCTION (13) Status post dilatation of esophageal stricture Code(s): Z98.890 - OTHER SPECIFIED POSTPROCEDURAL STATES; Z87.19 - PERSONAL HISTORY OF OTHER DISEASES OF THE DIGESTIVE SYSTEM
--- NOTE | 2017-12-03 09:32 | PN ---
Physical Exam: SUBJECTIVE: Patient seen and examined at the bedside. He is laying in bed in no acute distress. Denies any chest pain or shortness of breath. verbalizing back pain. OBJECTIVE: patient resident of [facility] here for dysphagia and found to have bradycardia for EGD tomorrow NPO at midnight Back pain at site of small back surgical scar, will avoid lidoderm patch as pt is bradycardic. Tylenol PRN Vital Signs Period Temp Pulse Resp BP Sys/Garcia Pulse Ox Last 24 Hr 97.9 F-98.7 F 46-53 14-20 121-156/60-78 95-97 GENERAL: The patient is awake, alert, in no acute distress. HEAD: Normal with no signs of trauma. EYES: PERRL, extraocular movements intact, sclera anicteric, conjunctiva clear. No ptosis. ENT: Ears normal, nares patent, oropharynx clear without exudates, moist mucous membranes. NECK: Trachea midline, full range of motion, supple. LUNGS: Breath sounds equal, clear to auscultation bilaterally, no wheezes HEART: sinus bradycardia 40s ABDOMEN: Soft, nontender, nondistended, normoactive bowel sounds, no guarding, no abdominal pain EXTREMITIES: no edema. NEUROLOGICAL: Normal speech, gait not observed. PSYCH: Normal mood, normal affect. SKIN: Warm, dry, normal turgor, no rashes or lesions noted Laboratory Results - last 24 hr 12/02/17 12/02/17 12/02/17 09:37 09:37 09:37 WBC 5.0 RBC 4.01 Hgb 11.7 Hct 35.1 L MCV 87.6 MCH 29.1 MCHC 33.2 RDW 16.0 H Plt Count 158 D MPV 8.0 D Absolute Neuts (auto) 3.4 Neutrophils % 68.4 Lymphocytes % 19.2 D Monocytes % 10.5 H Eosinophils % 1.2 Basophils % 0.7 Nucleated RBC % 0 PT with INR 13.20 H INR 1.17 H Sodium Cancelled Potassium Cancelled Chloride Cancelled Carbon Dioxide Cancelled Anion Gap Cancelled BUN Cancelled Creatinine Cancelled Creat Clearance w eGFR Cancelled POC Glucometer Random Glucose Cancelled Calcium Cancelled Total Bilirubin Cancelled AST Cancelled ALT Cancelled Alkaline Phosphatase Cancelled Total Protein Cancelled Albumin Cancelled Urine Color Urine Appearance Urine pH Ur Specific [place] Urine Protein Urine Glucose (UA) Urine Ketones Urine Blood Urine Nitrite Urine Bilirubin Urine Urobilinogen Ur Leukocyte Esterase Urine WBC (Auto) Urine RBC (Auto) Blood Type Antibody Screen 12/02/17 12/02/17 12/02/17 09:37 12:00 18:24 WBC RBC Hgb Hct MCV MCH MCHC RDW Plt Count MPV Absolute Neuts (auto) Neutrophils % Lymphocytes % Monocytes % Eosinophils % Basophils % Nucleated RBC % PT with INR INR Sodium 144 Potassium 4.1 Chloride 107 Carbon Dioxide 30 Anion Gap 7 L BUN 25 H Creatinine 1.4 H Creat Clearance w eGFR 47.83 POC Glucometer 95.13341 Random Glucose 91 Calcium 9.0 Total Bilirubin 0.7 AST 24 D ALT 24 Alkaline Phosphatase 73 Total Protein 6.7 Albumin 3.8 Urine Color Urine Appearance Urine pH Ur Specific [place] Urine Protein Urine Glucose (UA) Urine Ketones Urine Blood Urine Nitrite Urine Bilirubin Urine Urobilinogen Ur Leukocyte Esterase Urine WBC (Auto) Urine RBC (Auto) Blood Type Cancelled Antibody Screen Cancelled 12/02/17 12/03/17 12/03/17 20:58 02:00 06:19 WBC RBC Hgb Hct MCV MCH MCHC RDW Plt Count MPV Absolute Neuts (auto) Neutrophils % Lymphocytes % Monocytes % Eosinophils % Basophils % Nucleated RBC % PT with INR INR Sodium Potassium Chloride Carbon Dioxide Anion Gap BUN Creatinine Creat Clearance w eGFR POC Glucometer 86 78 Random Glucose Calcium Total Bilirubin AST ALT Alkaline Phosphatase Total Protein Albumin Urine Color Ltyellow Urine Appearance Clear Urine pH 6.0 D Ur Specific [place] 1.015 Urine Protein Negative Urine Glucose (UA) Negative Urine Ketones Negative Urine Blood 1+ H Urine Nitrite Negative Urine Bilirubin Negative Urine Urobilinogen Negative Ur Leukocyte Esterase Negative Urine WBC (Auto) 1 Urine RBC (Auto) 8 Blood Type Antibody Screen 12/03/17 12/03/17 06:55 06:55 WBC 4.9 RBC 4.00 Hgb 11.4 L Hct 35.0 L MCV 87.7 MCH 28.6 MCHC 32.6 RDW 16.2 H Plt Count 143 MPV 7.7 Absolute Neuts (auto) Neutrophils % Lymphocytes % Monocytes % Eosinophils % Basophils % Nucleated RBC % PT with INR INR Sodium 143 Potassium 3.6 Chloride 107 Carbon Dioxide 29 Anion Gap 7 L BUN 24 H Creatinine 1.3 Creat Clearance w eGFR 52.10 POC Glucometer Random Glucose 75 Calcium 8.3 L Total Bilirubin AST ALT Alkaline Phosphatase Total Protein Albumin Urine Color Urine Appearance Urine pH Ur Specific [place] Urine Protein Urine Glucose (UA) Urine Ketones Urine Blood Urine Nitrite Urine Bilirubin Urine Urobilinogen Ur Leukocyte Esterase Urine WBC (Auto) Urine RBC (Auto) Blood Type Antibody Screen Active Medications Generic Name Dose Route Start Last Admin Trade Name Freq PRN Reason Stop Dose Admin Acetaminophen 650 mg 12/02/17 14:17 12/02/17 18:30 Tylenol - PO 650 mg Q4H PRN Administration FEVER Allopurinol 100 mg 12/03/17 10:00 Zyloprim - PO DAILY [facility] Amlodipine Besylate 2.5 mg 12/03/17 10:00 Norvasc - PO DAILY [facility] Cholecalciferol 400 unit 12/03/17 10:00 Vitamin D3 - PO DAILY [facility] Dextrose 25 gm 12/02/17 21:54 D50w (Vial) - IVPUSH PRN PRN Hypoglycemia Donepezil HCl 10 mg 12/03/17 10:00 Aricept - PO DAILY [facility] Dutasteride 0.5 mg 12/03/17 10:00 Avodart - PO DAILY [facility] Sodium Chloride 1,000 mls @ 75 mls/hr 12/02/17 14:30 12/02/17 18:20 Normal Saline - IV 75 mls/hr ASDIR [facility] Administration Insulin Aspart 1 vial 12/02/17 16:30 12/03/17 06:21 Novolog Vial Sliding Scale - SQ Not Given ACHS [facility] Protocol Isosorbide Mononitrate 60 mg 12/03/17 10:00 Imdur - PO DAILY [facility] Lidocaine 1 patch 12/03/17 10:00 Lidoderm Patch - TP DAILY [facility] Multivitamins/Minerals 1 each 12/03/17 10:00 Theragran-M PO DAILY [facility] Nitroglycerin 0.4 mg 12/02/17 14:30 Nitrostat - SL PRN PRN CHEST PAINS Non-Formulary Medication 28 mg 12/03/17 10:00 Memantine Hcl [Namenda Xr] PO DAILY [facility] Pantoprazole Sodium 20 mg 12/03/17 10:00 Protonix - PO DAILY [facility] Polyethylene Glycol 17 gm 12/03/17 10:00 Miralax (For Daily Use) - PO BID [facility] Rosuvastatin Calcium 40 mg 12/03/17 22:00 Crestor - PO [facility] ASSESSMENT/PLAN: Patient is a 87 year old resident of [place] [facility] the [facility]. He has a past medical history of CAD, HTN, HLD, DM, dementia, esophageal stricture with dilation on 07/2017 and BPH. He presents to the ED for worsening dysphagia. Patient is unable to tolerate solids or liquids. He was also noted to be is sinus bradycardia on admission. Dysphagia/Failure to thrive/Poor PO intake: History of esophageal stricture with dilation 4 months ago. Returns to the ED with poor po intake and unable to swallow solids/liquids. EGD 12/02 shows esophageal luminal narrowing adjacent to the gastroesophageal junction. For esophageal dilation once cleared by cardiology. Hypertension, history: off toprol xl for bradycardia. Hypotensive today, ivf increased and parameters added to cardiac meds. HlD: on crestor Dementia: on Namenda fen NS @ 100cc.hr monitor electrolytes low salt diet prophy: scds Visit type - Emergency Visit Emergency Visit: Yes ED Registration Date: 12/03/17 Care time: The patient presented to the Emergency Department on the above date and was hospitalized for further evaluation of their emergent condition. - New Patient This patient is new to me today: Yes Date on this admission: 12/03/17 - Critical Care Critical Care patient: No - Discharge Referral Referred to [facility] Med P.C.: No
--- NOTE | 2017-12-03 09:50 | PN ---
Progress Note, Physician History of Present Illness: GI input appreciated, planned for repeat esophageal stricture dilatation, still bradycardic off Toprol. - Current Medication List Current Medications: Active Medications Acetaminophen (Tylenol -) 650 mg PO Q4H PRN PRN Reason: FEVER Last Admin: 12/02/17 18:30 Dose: 650 mg Allopurinol (Zyloprim -) 100 mg PO DAILY [facility] Amlodipine Besylate (Norvasc -) 2.5 mg PO DAILY [facility] Cholecalciferol (Vitamin D3 -) 400 unit PO DAILY [facility] Dextrose (D50w (Vial) -) 25 gm IVPUSH PRN PRN PRN Reason: Hypoglycemia Donepezil HCl (Aricept -) 10 mg PO DAILY [facility] Dutasteride (Avodart -) 0.5 mg PO DAILY [facility] Sodium Chloride (Normal Saline -) 1,000 mls @ 75 mls/hr IV ASDIR [facility] Last Admin: 12/02/17 18:20 Dose: 75 mls/hr Insulin Aspart (Novolog Vial Sliding Scale -) 1 vial SQ ACHS [facility]; Protocol Last Admin: 12/03/17 06:21 Dose: Not Given Isosorbide Mononitrate (Imdur -) 60 mg PO DAILY [facility] Lidocaine (Lidoderm Patch -) 1 patch TP DAILY [facility] Multivitamins/Minerals (Theragran-M) 1 each PO DAILY [facility] Nitroglycerin (Nitrostat -) 0.4 mg SL PRN PRN PRN Reason: CHEST PAINS Non-Formulary Medication (Memantine Hcl [Namenda Xr]) 28 mg PO DAILY [facility] Pantoprazole Sodium (Protonix -) 20 mg PO DAILY [facility] Polyethylene Glycol (Miralax (For Daily Use) -) 17 gm PO BID [facility] Rosuvastatin Calcium (Crestor -) 40 mg PO HS [facility] - Objective Vital Signs: Vital Signs Temperature 98.1 F 12/03/17 06:00 Pulse Rate 50 L 12/03/17 06:00 Respiratory Rate 18 12/03/17 06:00 Blood Pressure 156/75 12/03/17 06:00 O2 Sat by Pulse Oximetry (%) 95 12/03/17 06:00 Constitutional: Yes: No Distress, Calm Neck: Yes: Supple Cardiovascular: Yes: Bradycardia Respiratory: Yes: Regular, CTA Bilaterally Gastrointestinal: Yes: Soft, Hypoactive Bowel Sounds Edema: No Labs: CBC, BMP 12/03/17 06:55 12/03/17 06:55 INR, PTT INR 1.17 (0.83-1.09) H 12/02/17 09:37 - ....Imaging EKG: Report Reviewed (Tele: SB @ 48) Problem List - Problems (1) Bradycardia Code(s): R00.1 - BRADYCARDIA, UNSPECIFIED (2) COPD (chronic obstructive pulmonary disease) Code(s): J44.9 - CHRONIC OBSTRUCTIVE PULMONARY DISEASE, UNSPECIFIED Qualifiers: Chronic bronchitis type: unspecified (3) Dementia Code(s): F03.90 - UNSPECIFIED DEMENTIA WITHOUT BEHAVIORAL DISTURBANCE Qualifiers: Dementia type: unspecified type (4) Dysphagia Code(s): R13.10 - DYSPHAGIA, UNSPECIFIED Qualifiers: Dysphagia type: esophageal phase Qualified Code(s): R13.10 - Dysphagia, unspecified (5) Hyperlipidemia Code(s): E78.5 - HYPERLIPIDEMIA, UNSPECIFIED Qualifiers: Hyperlipidemia type: pure hypercholesterolemia Qualified Code(s): E78.00 - Pure hypercholesterolemia, unspecified; E78.0 - Pure hypercholesterolemia (6) Hypertension Code(s): I10 - ESSENTIAL (PRIMARY) HYPERTENSION Qualifiers: Hypertension type: essential hypertension Qualified Code(s): I10 - Essential (primary) hypertension (7) Renal insufficiency Code(s): N28.9 - DISORDER OF KIDNEY AND URETER, UNSPECIFIED (8) Esophageal stricture Code(s): K22.2 - ESOPHAGEAL OBSTRUCTION (9) Status post dilatation of esophageal stricture Code(s): Z98.890 - OTHER SPECIFIED POSTPROCEDURAL STATES; Z87.19 - PERSONAL HISTORY OF OTHER DISEASES OF THE DIGESTIVE SYSTEM Assessment/Plan Echocardiography performed February 05, 2017 revealed overall preserved left ventricular systolic function with estimated left ventricular ejection fraction between 70-75%, mitral annular calcification, aortic valve leaflet sclerosis, mild mitral valve regurgitation, mild aortic valve regurgitation, mild tricuspid valve regurgitation with calculated RVSP of 29 mmHg. Echocardiography performed January 10, 2016 revealed overall preserved left ventricular systolic function, mitral annular calcification, aortic valve leaflet sclerosis, mild mitral valve regurgitation, mild to moderate aortic and tricuspid valve regurgitation with calculated RVSP of 33 mmHg. Pharmacologic (Lexiscan) myocardial perfusion imaging study performed January reveal small size inferior, infero-basal wall defect compatible with diaphragmatic attenuation with normal left ventricular contraction pattern on LV gated analysis with calculated left and degree ejection fraction of 77% at rest and 80% post Lexiscan infusion. ASSESSMENT: 1. Dysphagia/odynophagia referable to recurrent Schatzki's ring, esophageal stricture and dysmotility post dilatation 2. Sinus bradycardia 3. Chest pain syndrome in a patient with known history of coronary artery disease status post percutaneous coronary intervention stenting negative pharmacologic (Lexiscan) myocardial perfusion imaging study for myocardial ischemia angina pectoris, stable. 3. Diastolic left ventricular dysfunction with class I [place] [employer] classification left ventricular failure, compensated/euvolemic. 4. Mitral valve regurgitation mild in severity of no clinical significance. 5. Aortic valve regurgitation mild to moderate in severity. 6. Tricuspid valve regurgitation mild to moderate in severity with RVSP of 33 mmHg on echocardiography performed January 10, 2016. 7. Persistent dizziness etiology of which remains unclear differential diagnosis includes benign positional vertigo and in addition component of postural hypotension to be considered which could be related to autonomic dysfunction in conjunction with his Parkinson's disease. 8. Hypertensive cardiovascular disease, at goal. 9. Kon-nyndwsl-btuwnrrfy diabetes mellitus. 10. Hypercholesterolemia, at goal. 11. Carotid stenosis mild in severity, asymptomatic. 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 13. History of chronic obstructive pulmonary disease. 14. History of gastroesophageal reflux disease. 15. Chronic kidney disease. 16. History of benign prostatic hypertrophy. 17. 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 18. History of degenerative joint disease. 19. History of gout/hyperuricemia. PLAN: 1. Chopped diet, planned for repeat dilatation with ASA held 2. Continue Norvasc 2.5 qd, Imdur 60 qd as hemodynamics tolerate, Crestor 40 qd. 3. Monitor HR recovery off beta blockers, then proceed with EGD
[2017-12-03] MEDS ORDERED: amLODIPine BESYLATE 5 MG TABLET (FP) PO SCH (10:00)
[2017-12-03] MEDS: CHOLECALCIFEROL (VITAMIN D3) 400 UNIT TABLET (FP) PO SCH (10:00)
[2017-12-03] MEDS ORDERED: LIDOCAINE 5% TOPICAL PATCH TP SCH (10:00)
[2017-12-03] MEDS ORDERED: ISOSORBIDE MONONITRATE 60 MG TAB.SR.24H (FP) PO SCH (10:00)
[2017-12-03] MEDS ORDERED: PATIENT'S OWN MEDICATION (NON-FORMULARY) (Memantine Hcl [Namenda Xr] 28 MG) PO SCH (10:00)
[2017-12-03] MEDS: POLYETHYLENE GLYCOL 3350 119 GM BTL PO SCH ×2 (10:08→23:42)
[2017-12-03] MEDS: DUTASTERIDE 0.5 MG CAP (FP) PO SCH (10:08)
[2017-12-03] MEDS: MULTIVITAMINS THER W-MINERALS COMBO TABLET (FP) PO SCH (10:08)
[2017-12-03] MEDS: PANTOPRAZOLE 20 MG TABLET (FP) PO SCH (10:08)
[2017-12-03] MEDS: DONEPEZIL HCL 10 MG TABLET (FP) PO SCH (10:09)
[2017-12-03] MEDS: ALLOPURINOL 100 MG TABLET (FP) PO SCH (10:09)
[2017-12-03] MEDS: ACETAMINOPHEN 325 MG TABLET (FP) PO PRN (13:40)
[2017-12-03] MEDS: SODIUM CHLORIDE 1,000 ML IV SCH (16:00)
[2017-12-03] MEDS ORDERED: amLODIPine BESYLATE 2.5 MG TABLET (FP) PO SCH (21:07)
[2017-12-03] MEDS ORDERED: SODIUM CHLORIDE 1,000 ML IV SCH (21:11)
[2017-12-03] MEDS ORDERED: ROSUVASTATIN CA 20 MG TABLET (FP) PO SCH (22:00)
[2017-12-04] MEDS: INSULIN SLIDING SCALE (NOVOLOG) 1 VIAL SQ SCH ×3 (06:46→17:59)
[2017-12-04 07:59] LABS: BASO % 0.6 % (0-2.0); EOS % 0.8 % (0-4.5); HEMATOCRIT 35.9 % (35.4-49); HEMOGLOBIN 11.5 GM/dL (11.7-16.9); LYMPH % 20.3 % (8-40); MCH 28.4 pg (25.7-33.7); MCHC 32.1 g/dl (32.0-35.9); MEAN CELL VOLUME 88.3 fl (80-96); MEAN PLT VOLUME 7.9 fl (7.5-11.1); MONO % 9.7 % (3.8-10.2); NEUT % 68.6 % (42.8-82.8); PLATELET COUNT 144 K/MM3 (134-434); RBC 4.07 M/mm3 (4.00-5.60); RDW 15.9 % (11.9-15.9); WHITE BLOOD COUNT 6.3 K/mm3 (4.0-10.0)
[2017-12-04 08:42] LABS: ALBUMIN 3.7 g/dl (3.4-5.0); ALK PHOS 73 U/L (45-117); ANION GAP 5 MMOL/L (8-16); BILIRUBIN,TOTAL 1.2 mg/dL (0.2-1.0); BLOOD UREA NITROGEN 19 mg/dL (7-18); CALCIUM 8.6 mg/dL (8.5-10.1); CHLORIDE 107 mmol/L (98-107); CO2 30 mmol/L (21-32); CREATININE 1.2 mg/dL (0.7-1.3); GLUCOSE,RANDOM 91 mg/dL (74-106); POTASSIUM 3.8 mmol/L (3.5-5.1); SGOT/AST 30 U/L (15-37); SGPT/ALT 23 U/L (12-78); SODIUM 142 mmol/L (136-145); TOT PROT 6.5 g/dl (6.4-8.2)
--- NOTE | 2017-12-04 09:05 | PN ---
Progress Note, Physician History of Present Illness: GI input appreciated, planned for repeat esophageal stricture dilatation, bradycardia improving off Toprol. - Current Medication List Current Medications: Active Medications Acetaminophen (Tylenol -) 650 mg PO Q4H PRN PRN Reason: FEVER Last Admin: 12/03/17 13:40 Dose: 650 mg Allopurinol (Zyloprim -) 100 mg PO DAILY [facility] Last Admin: 12/03/17 10:09 Dose: 100 mg Amlodipine Besylate (Norvasc -) 2.5 mg PO DAILY [facility] Cholecalciferol (Vitamin D3 -) 400 unit PO DAILY [facility] Last Admin: 12/03/17 10:00 Dose: Not Given Dextrose (D50w (Vial) -) 25 gm IVPUSH PRN PRN PRN Reason: Hypoglycemia Donepezil HCl (Aricept -) 10 mg PO DAILY [facility] Last Admin: 12/03/17 10:09 Dose: 10 mg Dutasteride (Avodart -) 0.5 mg PO DAILY [facility] Last Admin: 12/03/17 10:08 Dose: 0.5 mg Sodium Chloride (Normal Saline -) 1,000 mls @ 100 mls/hr IV ASDIR [facility] Last Admin: 12/03/17 23:42 Dose: 100 mls/hr Insulin Aspart (Novolog Vial Sliding Scale -) 1 vial SQ ACHS [facility]; Protocol Last Admin: 12/04/17 06:46 Dose: Not Given Isosorbide Mononitrate (Imdur -) 60 mg PO DAILY [facility] Multivitamins/Minerals (Theragran-M) 1 each PO DAILY [facility] Last Admin: 12/03/17 10:08 Dose: 1 each Nitroglycerin (Nitrostat -) 0.4 mg SL PRN PRN PRN Reason: CHEST PAINS Non-Formulary Medication (Memantine Hcl [Namenda Xr]) 28 mg PO DAILY [facility] Pantoprazole Sodium (Protonix -) 20 mg PO DAILY [facility] Last Admin: 12/03/17 10:08 Dose: 20 mg Polyethylene Glycol (Miralax (For Daily Use) -) 17 gm PO BID [facility] Last Admin: 12/03/17 23:42 Dose: Not Given Rosuvastatin Calcium (Crestor -) 40 mg PO HS [facility] Last Admin: 12/03/17 23:42 Dose: 40 mg - Objective Vital Signs: Vital Signs Temperature 97.2 F L 12/04/17 05:28 Pulse Rate 52 L 12/04/17 05:28 Respiratory Rate 20 12/04/17 05:28 Blood Pressure 150/70 12/04/17 05:28 O2 Sat by Pulse Oximetry (%) 97 12/04/17 05:28 Constitutional: Yes: No Distress, Calm, Thin Neck: Yes: Supple Cardiovascular: Yes: Regular Rate and Rhythm Respiratory: Yes: Regular, CTA Bilaterally Gastrointestinal: Yes: Normal Bowel Sounds, Soft Edema: No Labs: CBC, BMP 12/04/17 06:15 12/04/17 06:15 INR, PTT INR 1.17 (0.83-1.09) H 12/02/17 09:37 - ....Imaging EKG: Report Reviewed (Tele: SB 50s) Problem List - Problems (1) Bradycardia Code(s): R00.1 - BRADYCARDIA, UNSPECIFIED (2) COPD (chronic obstructive pulmonary disease) Code(s): J44.9 - CHRONIC OBSTRUCTIVE PULMONARY DISEASE, UNSPECIFIED Qualifiers: Chronic bronchitis type: unspecified (3) Dementia Code(s): F03.90 - UNSPECIFIED DEMENTIA WITHOUT BEHAVIORAL DISTURBANCE Qualifiers: Dementia type: unspecified type (4) Dysphagia Code(s): R13.10 - DYSPHAGIA, UNSPECIFIED Qualifiers: Dysphagia type: esophageal phase Qualified Code(s): R13.10 - Dysphagia, unspecified (5) Hyperlipidemia Code(s): E78.5 - HYPERLIPIDEMIA, UNSPECIFIED Qualifiers: Hyperlipidemia type: pure hypercholesterolemia Qualified Code(s): E78.00 - Pure hypercholesterolemia, unspecified; E78.0 - Pure hypercholesterolemia (6) Hypertension Code(s): I10 - ESSENTIAL (PRIMARY) HYPERTENSION Qualifiers: Hypertension type: essential hypertension Qualified Code(s): I10 - Essential (primary) hypertension (7) Renal insufficiency Code(s): N28.9 - DISORDER OF KIDNEY AND URETER, UNSPECIFIED (8) Esophageal stricture Code(s): K22.2 - ESOPHAGEAL OBSTRUCTION (9) Status post dilatation of esophageal stricture Code(s): Z98.890 - OTHER SPECIFIED POSTPROCEDURAL STATES; Z87.19 - PERSONAL HISTORY OF OTHER DISEASES OF THE DIGESTIVE SYSTEM Assessment/Plan Echocardiography performed February 05, 2017 revealed overall preserved left ventricular systolic function with estimated left ventricular ejection fraction between 70-75%, mitral annular calcification, aortic valve leaflet sclerosis, mild mitral valve regurgitation, mild aortic valve regurgitation, mild tricuspid valve regurgitation with calculated RVSP of 29 mmHg. Echocardiography performed January 10, 2016 revealed overall preserved left ventricular systolic function, mitral annular calcification, aortic valve leaflet sclerosis, mild mitral valve regurgitation, mild to moderate aortic and tricuspid valve regurgitation with calculated RVSP of 33 mmHg. Pharmacologic (Lexiscan) myocardial perfusion imaging study performed January reveal small size inferior, infero-basal wall defect compatible with diaphragmatic attenuation with normal left ventricular contraction pattern on LV gated analysis with calculated left and degree ejection fraction of 77% at rest and 80% post Lexiscan infusion. ASSESSMENT: 1. Dysphagia/odynophagia referable to recurrent Schatzki's ring, esophageal stricture and dysmotility post dilatation 2. Sinus bradycardia 3. Chest pain syndrome in a patient with known history of coronary artery disease status post percutaneous coronary intervention stenting negative pharmacologic (Lexiscan) myocardial perfusion imaging study for myocardial ischemia angina pectoris, stable. 3. Diastolic left ventricular dysfunction with class I [employer] classification left ventricular failure, compensated/euvolemic. 4. Mitral valve regurgitation mild in severity of no clinical significance. 5. Aortic valve regurgitation mild to moderate in severity. 6. Tricuspid valve regurgitation mild to moderate in severity with RVSP of 33 mmHg on echocardiography performed January 10, 2016. 7. Persistent dizziness etiology of which remains unclear differential diagnosis includes benign positional vertigo and in addition component of postural hypotension to be considered which could be related to autonomic dysfunction in conjunction with his Parkinson's disease. 8. Hypertensive cardiovascular disease, at goal. 9. Paa-[id number] diabetes mellitus. 10. Hypercholesterolemia, at goal. 11. Carotid stenosis mild in severity, asymptomatic. 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 13. History of chronic obstructive pulmonary disease. 14. History of gastroesophageal reflux disease. 15. Chronic kidney disease. 16. History of benign prostatic hypertrophy. 17. 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 18. History of degenerative joint disease. 19. History of gout/hyperuricemia. PLAN: 1. Chopped diet, planned for repeat dilatation with ASA held 2. Continue Norvasc 2.5 qd, Imdur 60 qd as hemodynamics tolerate, Crestor 40 qd. 3. Monitor HR recovery off beta blockers, then proceed with EGD
[2017-12-04] MEDS: ALLOPURINOL 100 MG TABLET (FP) PO SCH (10:00)
[2017-12-04] MEDS: DUTASTERIDE 0.5 MG CAP (FP) PO SCH (10:00)
[2017-12-04] MEDS: POLYETHYLENE GLYCOL 3350 119 GM BTL PO SCH (10:00)
[2017-12-04] MEDS: CHOLECALCIFEROL (VITAMIN D3) 400 UNIT TABLET (FP) PO SCH (10:00)
[2017-12-04] MEDS: MULTIVITAMINS THER W-MINERALS COMBO TABLET (FP) PO SCH (10:00)
[2017-12-04] MEDS: DONEPEZIL HCL 10 MG TABLET (FP) PO SCH (10:00)
[2017-12-04] MEDS ORDERED: ISOSORBIDE MONONITRATE 60 MG TAB.SR.24H (FP) PO SCH (10:00)
[2017-12-04] MEDS: PANTOPRAZOLE 20 MG TABLET (FP) PO SCH (10:00)
[2017-12-04] MEDS ORDERED: amLODIPine BESYLATE 2.5 MG TABLET (FP) PO SCH (10:00)
--- NOTE | 2017-12-04 11:44 | PN ---
Physical Exam: SUBJECTIVE: Patient seen and examined. He has no acute complaints, no vomiting since has been npo. Daughter at bedside, for EGD a 1300 OBJECTIVE: Vital Signs Period Temp Pulse Resp BP Sys/Garcia Pulse Ox Last 24 Hr 97.2 F-98.4 F 52-58 18-52 85-150/40-70 97-98 PE Neuro: alert, awake, cn 2-12intact, intermitted confusion Pulm: clear no wheezing cV: s1 s2 rrr abd: s nt nd + bs Ext: warm no le edema Laboratory Results - last 24 hr 12/04/17 12/04/17 12/04/17 05:32 06:15 06:15 WBC 6.3 RBC 4.07 Hgb 11.5 L Hct 35.9 MCV 88.3 MCH 28.4 MCHC 32.1 RDW 15.9 Plt Count 144 MPV 7.9 Absolute Neuts (auto) 4.3 Neutrophils % 68.6 Lymphocytes % 20.3 Monocytes % 9.7 Eosinophils % 0.8 Basophils % 0.6 Nucleated RBC % 0 Sodium 142 Potassium 3.8 Chloride 107 Carbon Dioxide 30 Anion Gap 5 L BUN 19 H Creatinine 1.2 Creat Clearance w eGFR 57.14 POC Glucometer 72 Random Glucose 91 D Calcium 8.6 Magnesium 2.0 Total Bilirubin 1.2 H AST 30 D ALT 23 Alkaline Phosphatase 73 Total Protein 6.5 Albumin 3.7 Active Medications Generic Name Dose Route Start Last Admin Trade Name Freq PRN Reason Stop Dose Admin Acetaminophen 650 mg 12/02/17 14:17 12/03/17 13:40 Tylenol - PO 650 mg Q4H PRN Administration FEVER Allopurinol 100 mg 12/03/17 10:00 12/04/17 10:00 Zyloprim - PO Not Given DAILY [facility] Amlodipine Besylate 2.5 mg 12/04/17 10:00 12/04/17 10:00 Norvasc - PO Not Given DAILY [facility] Cholecalciferol 400 unit 12/03/17 10:00 12/04/17 10:00 Vitamin D3 - PO Not Given DAILY [facility] Dextrose 25 gm 12/02/17 21:54 D50w (Vial) - IVPUSH PRN PRN Hypoglycemia Donepezil HCl 10 mg 12/03/17 10:00 12/04/17 10:00 Aricept - PO Not Given DAILY [facility] Dutasteride 0.5 mg 12/03/17 10:00 12/04/17 10:00 Avodart - PO Not Given DAILY [facility] Sodium Chloride 1,000 mls @ 100 mls/hr 12/03/17 21:11 12/03/17 23:42 Normal Saline - IV 100 mls/hr ASDIR [facility] Administration Insulin Aspart 1 vial 12/02/17 16:30 12/04/17 06:46 Novolog Vial Sliding Scale - SQ Not Given ACHS [facility] Protocol Isosorbide Mononitrate 60 mg 12/04/17 10:00 12/04/17 10:00 Imdur - PO Not Given DAILY [facility] Multivitamins/Minerals 1 each 12/03/17 10:00 12/04/17 10:00 Theragran-M PO Not Given DAILY [facility] Nitroglycerin 0.4 mg 12/02/17 14:30 Nitrostat - SL PRN PRN CHEST PAINS Non-Formulary Medication 28 mg 12/03/17 10:00 Memantine Hcl [Namenda Xr] PO DAILY [facility] Pantoprazole Sodium 20 mg 12/03/17 10:00 12/04/17 10:00 Protonix - PO Not Given DAILY [facility] Polyethylene Glycol 17 gm 12/03/17 10:00 12/04/17 10:00 Miralax (For Daily Use) - PO Not Given BID [facility] Rosuvastatin Calcium 40 mg 12/03/17 22:00 12/03/17 23:42 Crestor - PO 40 mg HS [facility] Administration Assessment: 87 year old resident of [facility] on the [facility] with pmhx of CAD, HTN, HLD, DM, dementia, esophageal stricture with dilation on 07/2017 and BPH admitted with worsening dysphagia, unable to tolerate solids or liquids and sinus bradycardia. Plan: 1. Dysphagia/Failure to thrive/Poor PO intake - history of esophageal stricture with dilation 4 months ago - For Returns to the ED with poor po intake and unable to swallow solids/ liquids - EGD 12/02 shows esophageal luminal narrowing adjacent to the gastroesophageal junction - For esophageal dilation today 2. Hypertension - Hold toprol for bradycardia - Cont norvasc 2.5mg daily - Imdur 60mg daily 3. HLD - Crestor 4. Dementia - Cont Namenda Visit type - Emergency Visit Emergency Visit: Yes ED Registration Date: 08/23/18 Care time: The patient presented to the Emergency Department on the above date and was hospitalized for further evaluation of their emergent condition. - New Patient This patient is new to me today: Yes Date on this admission: 12/04/17 - Critical Care Critical Care patient: No
[2017-12-04] MEDS ORDERED: SODIUM CHLORIDE 1,000 ML IV SCH (11:48)
[2017-12-04 13:06] VITALS: BMI 25.3
--- NOTE | 2017-12-04 14:34 | PN ---
Progress Note (short form) - Note Progress Note: GI Procedure NOte: Please see EGD report. Schatzki ring again found and dilated. Given dysmotility will need grounded diet. Discussed findings with his daughters. No GI objections to discharge. Problem List - Problems (1) Dysphagia Code(s): R13.10 - DYSPHAGIA, UNSPECIFIED Qualifiers: Dysphagia type: esophageal phase Qualified Code(s): R13.10 - Dysphagia, unspecified (2) Dementia Code(s): F03.90 - UNSPECIFIED DEMENTIA WITHOUT BEHAVIORAL DISTURBANCE Qualifiers: Dementia type: unspecified type (3) COPD (chronic obstructive pulmonary disease) Code(s): J44.9 - CHRONIC OBSTRUCTIVE PULMONARY DISEASE, UNSPECIFIED Qualifiers: Chronic bronchitis type: unspecified (4) BPH (benign prostatic hyperplasia) Code(s): N40.0 - BENIGN PROSTATIC HYPERPLASIA WITHOUT LOWER URINRY TRACT SYMP (5) Renal insufficiency Code(s): N28.9 - DISORDER OF KIDNEY AND URETER, UNSPECIFIED (6) Diabetes 1.5, managed as type 2 Code(s): E10.9 - TYPE 1 DIABETES MELLITUS WITHOUT COMPLICATIONS (7) Hypertension Code(s): I10 - ESSENTIAL (PRIMARY) HYPERTENSION Qualifiers: Hypertension type: essential hypertension Qualified Code(s): I10 - Essential (primary) hypertension (8) Hyperlipidemia Code(s): E78.5 - HYPERLIPIDEMIA, UNSPECIFIED Qualifiers: Hyperlipidemia type: pure hypercholesterolemia Qualified Code(s): E78.00 - Pure hypercholesterolemia, unspecified; E78.0 - Pure hypercholesterolemia (9) Fatty (change of) liver, not elsewhere classified Code(s): K76.0 - FATTY (CHANGE OF) LIVER, NOT ELSEWHERE CLASSIFIED (10) Angiodysplasia of cecum Code(s): K55.20 - ANGIODYSPLASIA OF COLON WITHOUT HEMORRHAGE (11) Bradycardia Code(s): R00.1 - BRADYCARDIA, UNSPECIFIED (12) Esophageal stricture Code(s): K22.2 - ESOPHAGEAL OBSTRUCTION (13) Status post dilatation of esophageal stricture Code(s): Z98.890 - OTHER SPECIFIED POSTPROCEDURAL STATES; Z87.19 - PERSONAL HISTORY OF OTHER DISEASES OF THE DIGESTIVE SYSTEM
[2017-12-04 22:58] VITALS: BP 127/73; PULSE 56; TEMP 98.2
--- NOTE | 2017-12-08 18:08 | PATH ---
Surgical Pathology Report Patient Name: ASHANTI REYES Med. Rec. #: [id number] /Age/Gender: 1930 (Age: 87) / M Account: [id number] Location: 4 W TELEMETRY U Taken: 12/04/2017 Received: 12/07/2017 Reported: 12/08/2017 Physicians: Earl Cash M.D. Specimen(s) Received BX SCHATZKI'S RING Clinical History Dysphagia Postoperative diagnosis: hiatal hernia, Schatzki's ring Final Diagnosis SCHATZKI'S RING, BIOPSY: ESOPHAGEAL (SQUAMOUS) MUCOSA WITH FOCAL BASAL LAYER HYPERPLASIA, SUGGESTIVE OF REFLUX ESOPHAGITIS. Electronically Signed Mario Valerio M.D. Gross Description Received in formalin, labeled "biopsy Schatzki's ring" are 4 mendez, irregular portions of soft tissue ranging from 0.4-1.1 cm. in greatest dimension. The specimens are submitted in toto in one cassette. 12/07/201712/07/2017
== END 2017-12-04 20:25 | disposition home or self-care (01) | DRG 392 ==
LOC: JER 08:31 → JERBED 13:19 → J4W 19:22 → OBSVTOIN 12-03 18:43
PROVIDERS: ADMIT Internal Medicine; ATTEND Nurse Practitioner Family
PROC: 0D758ZZ Dilation of Esophagus, Via Natural or Artificial Opening Endoscopic (ICD-10-PCS; 2017-12-04)
PROC: 0DD58ZX Extraction of Esophagus, Via Natural or Artificial Opening Endoscopic, Diagnostic (ICD-10-PCS; principal; 2017-12-04 13:00)
DX: K22.2 Esophageal obstruction (principal); N17.9 Acute kidney failure, unspecified; I13.0 Hypertensive heart and chronic kidney disease with heart failure and stage 1 through stage 4 chronic kidney disease, or unspecified chronic kidney disease; I50.32 Chronic diastolic (congestive) heart failure; E86.0 Dehydration; R00.1 Bradycardia, unspecified; I25.10 Atherosclerotic heart disease of native coronary artery without angina pectoris; E78.5 Hyperlipidemia, unspecified; G30.9 Alzheimer's disease, unspecified; F02.80 Dementia in other diseases classified elsewhere, unspecified severity, without behavioral disturbance, psychotic disturbance, mood disturbance, and anxiety; I08.3 Combined rheumatic disorders of mitral, aortic and tricuspid valves; N40.0 Benign prostatic hyperplasia without lower urinary tract symptoms; K76.0 Fatty (change of) liver, not elsewhere classified; J44.9 Chronic obstructive pulmonary disease, unspecified; K55.20 Angiodysplasia of colon without hemorrhage; N18.9 Chronic kidney disease, unspecified; R13.10 Dysphagia, unspecified; R62.7 Adult failure to thrive; K21.9 Gastro-esophageal reflux disease without esophagitis; M48.00 Spinal stenosis, site unspecified; E11.9 Type 2 diabetes mellitus without complications; Z95.5 Presence of coronary angioplasty implant and graft; Z88.0 Allergy status to penicillin; Z87.891 Personal history of nicotine dependence; Z87.19 Personal history of other diseases of the digestive system
CPT/HCPCS: 36415; 71045-TC-FY; 74220-TC-FY; 74240-TC-FY; 80048; 80053; 81003; 81015; 82962; 83735; 85025; 85027; 85610; 87086; 88305-TC; 93005; 93010; 99282-25; G0378; J7030

== ENCOUNTER 2019-05-22 16:15 | Observation (INO) | payer OTHER, BC ==
[2019-05-22 16:39] VITALS: BMI 21.0
[2019-05-22 17:55] LABS: BASO % 0.4 % (0-2.0); EOS % 0.6 % (0-4.5); HEMATOCRIT 35.1 % (35.4-49); HEMOGLOBIN 11.8 GM/dL (11.7-16.9); LYMPH % 13.9 % (8-40); MCH 31.6 pg (25.7-33.7); MCHC 33.5 g/dl (32.0-35.9); MEAN CELL VOLUME 94.3 fl (80-96); MEAN PLT VOLUME 8.4 fl (7.5-11.1); MONO % 13.9 % (3.8-10.2); NEUT % 71.2 % (42.8-82.8); PLATELET COUNT 136 K/MM3 (134-434); RBC 3.72 M/mm3 (4.00-5.60); RDW 14.8 % (11.9-15.9); WHITE BLOOD COUNT 6.3 K/mm3 (4.0-10.0)
[2019-05-22 18:23] LABS: HYALINE CASTS 0 /lpf (0-8); PH,URINE 5.5 (5.0-8.0); URINE APPEARANCE CLEAR; URINE BACTERIA 7.2 /hpf (NEGATIVE); URINE BILIRUBIN NEGATIVE (NEGATIVE); URINE COLOR YELLOW; URINE GLUCOSE (UA) NEGATIVE (NEGATIVE); URINE KETONE NEGATIVE (NEGATIVE); URINE LEUK ESTERASE NEGATIVE (NEGATIVE); URINE NITRITE NEGATIVE (NEGATIVE); URINE PROTEIN 1+ (NEGATIVE); URINE RBC 8 /hpf (0-4); URINE WBC 1 /hpf (0-5)
[2019-05-22 18:24] LABS: ANION GAP 8 MMOL/L (8-16); BLOOD UREA NITROGEN 41.3 mg/dL (7-18); CALCIUM 8.9 mg/dL (8.5-10.1); CHLORIDE 112 mmol/L (98-107); CO2 26 mmol/L (21-32); CREATININE 1.5 mg/dL (0.55-1.3); GLUCOSE,RANDOM 100 mg/dL (74-106); POTASSIUM 3.8 mmol/L (3.5-5.1); SODIUM 145 mmol/L (136-145)
--- NOTE | 2019-05-22 18:48 | PDOC ---
Attending Attestation - Resident Resident Name: DorysColt - ED Attending Attestation I have performed the following: I have examined & evaluated the patient, The case was reviewed & discussed with the resident, I agree w/resident's findings & plan, Exceptions are as noted - HPI HPI: 05/22/19 18:42 88 yo male h/o CAD htn hld, DM dementia, poor po intake, here from [facility] on [place], after having unwitness fall last pm. per daughter, pt was found on the floor at 9:30 m night prior. had hematoma to his right forehead. does take baby aspirin. per her, pt has been mildly more irritated, and agitated since she saw him last. pt with no current complaints of pain or cp or sob. - Physicial Exam PE: 05/22/19 18:47 awake alert right frontal forehead with hematoma. no palp step off. no c spine tenderness. lungs clear bilat heart rrr no mrg abd soft nt nd ext wwp. left hand with index finger erythem, eccymosis, small laceration. moves all four ext. - Medical Decision Making 05/22/19 18:48 88 yo M with fall/ syncope head trauma. plan r/o infection electrolyte abnoramlity r/o traumtic injury / ich. ct head / c spine. cxr labs ekg. trop. ua r/o underlying infection . will require admission to telemtry for syncope Heart Score/ECG Review #1 General ECG Interpretation: Sinus Rhythm, Normal Rate (72 TWI v1 - v3. RBBB.), Normal Intervals, No acute ischemic changes
--- NOTE | 2019-05-22 18:51 | PDOC ---
History of Present Illness - General Chief Complaint: Injury Stated Complaint: FALL/VOMITING History Source: Patient, Care Provider Exam Limitations: Dementia - History of Present Illness Initial Comments: 05/22/19 18:43 88 yo M with a hx CAD s/p stents 2x (04.02.2002), DM, peripheral neuropathy, and spinal stenosis presents to the emergency department s/p fall unwitnessed at [facility]. Per the daughter at bedside, the patient had a fall between dinner hour (~6:30 pm to approximately 9:30 pm to when he was found) with blood on the floor. The patient does not have a recollection of the event and is alert and oriented to himself only. Per the patient, he denies pain. The daughter denies AC other than 81 mg daily aspirin. Per the patient, denies the following: headache, visual changes, nausea, vomiting, chill, fevers, chest pain , SOB, abdominal pain, dysuria, hematuria, and leg pain/swelling. Allergies: ibuprofens and PCN. Past History - Past Medical History Allergies/Adverse Reactions: Allergies Allergy/AdvReac Type Severity Reaction Status Date / Time ibuprofen Allergy Rash Verified 07/31/17 11:07 Penicillins Allergy Rash Verified 07/31/17 11:07 Home Medications: Ambulatory Orders Allopurinol [Zyloprim -] 100 mg PO DAILY 12/02/17 Amlodipine Besylate [Norvasc -] 2.5 mg PO DAILY 12/02/17 Aspirin [Ecotrin] 81 mg PO DAILY 12/02/17 Donepezil HCl [Aricept -] 10 mg PO DAILY 12/02/17 Dutasteride [Avodart] 0.5 mg PO DAILY 12/02/17 Isosorbide Mononitrate [Isosorbide Mononitrate ER] 60 mg PO DAILY 12/02/17 Memantine HCl [Namenda Xr] 28 mg PO DAILY 12/02/17 Multivit-Min/FA/Lycopen/Lutein [Centrum Silver Men Tablet] 1 each PO DAILY 12/02 Omeprazole Magnesium [Prilosec Otc] 40 mg PO DAILY 12/02/17 Rosuvastatin Calcium [Crestor] 5 mg PO HS 12/02/17 Acetaminophen [Tylenol Extra Strength] 2 tab PO BID 05/22/19 Ascorbic Acid [Vitamin C -] 500 mg PO BID 05/22/19 Diclofenac Sodium [Diclo Gel] 1 each TP QID 05/22/19 Gabapentin [Neurontin] 100 mg PO HS 05/22/19 Mirtazapine 1 tab PO HS 05/22/19 Silver Sulfadiazine [Silvadene] 1 applic TP BID 05/22/19 Anemia: No Asthma: No Cancer: No Cardiac Disorders: Yes (CAD, stents x2, multiple valve regurgitation, carotid stenosis, Chest Pain) CVA: No COPD: Yes CHF: Yes DVT: No Dementia: Yes (Alzheimers (basline 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)) Diabetes: Yes (DMII) GI Disorders: Yes (Esophageal strictures, Dysphagia, COLON POLYPS, GERD) Disorders: Yes (CKD, BPH) HTN: Yes Hypercholesterolemia: Yes Liver Disease: No Seizures: No Thyroid Disease: No - Surgical History Abdominal Surgery: No Appendectomy: No Cardiac Surgery: Yes (2 Stents (2001)) Cholecystectomy: No Lung Surgery: No Neurologic Surgery: Yes (back surgery) Orthopedic Surgery: Yes (back surgery (lumbar spine), "right knee procedure") - Immunization History Td Vaccination: Yes Immunization Up to Date: Yes - Psycho Social/Smoking Cessation Hx Smoking Status: Yes Smoking History: Never smoked Years of Tobacco Use: 45 Have you smoked in the past 12 months: No Number of Cigarettes Smoked Daily: 0 If you are a former smoker, when did you quit?: quit 1992 Cigars Per Day: 0 Hx Alcohol Use: No Drug/Substance Use Hx: No Substance Use Type: None Hx Substance Use Treatment: No Review of Systems - Review of Systems Able to Perform ROS?: No (DEMENTIA) Is the patient limited French proficient: No *Physical Exam - Vital Signs Last Vital Signs Temp Pulse Resp BP Pulse Ox 97.8 F 65 16 127/70 99 05/22/19 16:33 05/22/19 16:33 05/22/19 16:33 05/22/19 16:33 05/22/19 16:33 - Physical Exam General Appearance: Yes: Nourished, Appropriately Dressed, Other (ecchymosis located on the right frontal forehead.). No: Apparent Distress, Intoxicated HEENT: positive: EOMI, TAL, Normal Voice, Symmetrical, Hearing Grossly Normal, Other (dry mucous membranes). negative: Pale Conjunctivae, Scleral Icterus (R) , Scleral Icterus (L), Muffled/Hoarse voice, Excessive drooling Neck: positive: Trachea midline, Supple. negative: Tender, Lymphadenopathy (R) , Lymphadenopathy (L), Tender lateral, Tender midline Respiratory/Chest: positive: Lungs Clear, Normal Breath Sounds. negative: Chest Tender, Respiratory Distress, Accessory Muscle Use Cardiovascular: positive: Regular Rhythm, Regular Rate, S1, S2. negative: Systolic Murmur Gastrointestinal/Abdominal: positive: Normal Bowel Sounds, Flat, Soft. negative : Tender, Distended, Guarding, Rebound Lymphatic: negative: Adenopathy Musculoskeletal: positive: Normal Inspection. negative: CVA Tenderness, Vertebral Tenderness Extremity: positive: Normal Capillary Refill, Normal Range of Motion. negative : Normal Inspection (erythema and warm to the touch PIP and distal on the left 2nd digit volar and dorsal region. Laceration noted with purulent discharge at the DIP volar aspect left 2nd digit. No deficit in strength or sensation of the left fingers. ), Tender Integumentary: positive: Normal Color, Dry, Warm Neurologic: positive: Alert. negative: Fully Oriented (oriented to self only) ED Treatment Course - LABORATORY CBC & Chemistry Diagram: 05/23/19 07:13 05/23/19 07:13 - ADDITIONAL ORDERS Additional order review: Laboratory Results 05/22/19 05/22/19 18:09 17:43 Sodium 145 Potassium 3.8 Chloride 112 H Carbon Dioxide 26 Anion Gap 8 BUN 41.3 H Creatinine 1.5 H Est GFR (CKD-EPI)AfAm 47.16 Est GFR (CKD-EPI)NonAf 40.69 Random Glucose 100 Calcium 8.9 Creatine Kinase 240 Troponin I < 0.02 Urine Color Yellow Urine Appearance Clear Urine pH 5.5 Ur Specific [place] 1.024 Urine Protein 1+ H Urine Glucose (UA) Negative Urine Ketones Negative Urine Blood Trace Urine Nitrite Negative Urine Bilirubin Negative Urine Urobilinogen 1.0 Ur Leukocyte Esterase Negative Urine WBC (Auto) 1 Urine RBC (Auto) 8 Urine Casts (Auto) 0 U Epithel Cells (Auto) 1.0 Urine Bacteria (Auto) 7.2 05/22/19 17:43 RBC 3.72 L MCV 94.3 MCHC 33.5 RDW 14.8 MPV 8.4 Neutrophils % 71.2 Lymphocytes % 13.9 D Monocytes % 13.9 H Eosinophils % 0.6 Basophils % 0.4 - RADIOLOGY Radiology Studies Ordered: Category Date Time Status CHEST X-RAY PORTABLE* [RAD] Stat Radiology 05/22/19 18:37 Ordered HAND- LEFT [RAD] Stat Radiology 05/22/19 18:37 Ordered Medical Decision Making - Medical Decision Making 88 yo M with a hx CAD s/p stents 2x (04.02.2002), DM, peripheral neuropathy, and spinal stenosis presents to the emergency department s/p fall unwitnessed at [facility]. Initial vitals; Initial Vital Signs Temp Pulse Resp BP Pulse Ox 97.8 F 65 16 127/70 99 05/22/19 16:33 05/22/19 16:33 05/22/19 16:33 05/22/19 16:33 05/22/19 16:33 Work up: presents s/p fall. ddx: mechanical vs cardiogenic vs metabolic vs infectious etiology for fall based on physical exam, will obtain ct head to rule out ICH and cervical spine to rule out acute fracture or dislocation, Laboratory Tests 05/22/19 05/22/19 05/22/19 17:43 17:43 18:09 WBC 6.3 RBC 3.72 L Hgb 11.8 Hct 35.1 L MCV 94.3 MCH 31.6 D MCHC 33.5 RDW 14.8 Plt Count 136 MPV 8.4 Absolute Neuts (auto) 4.5 Neutrophils % 71.2 Lymphocytes % 13.9 D Monocytes % 13.9 H Eosinophils % 0.6 Basophils % 0.4 Nucleated RBC % 0 Sodium 145 Potassium 3.8 Chloride 112 H Carbon Dioxide 26 Anion Gap 8 BUN 41.3 H Creatinine 1.5 H Est GFR (CKD-EPI)AfAm 47.16 Est GFR (CKD-EPI)NonAf 40.69 Random Glucose 100 Calcium 8.9 Creatine Kinase 240 Creatine Kinase Index 1.4 CK-MB (CK-2) 3.4 Troponin I < 0.02 Urine Color Yellow Urine Appearance Clear Urine pH 5.5 Ur Specific [place] 1.024 Urine Protein 1+ H Urine Glucose (UA) Negative Urine Ketones Negative Urine Blood Trace Urine Nitrite Negative Urine Bilirubin Negative Urine Urobilinogen 1.0 Ur Leukocyte Esterase Negative Urine WBC (Auto) 1 Urine RBC (Auto) 8 Urine Casts (Auto) 0 U Epithel Cells (Auto) 1.0 Urine Bacteria (Auto) 7.2 labs within normal limits save for elevated creatinine (presley). no leukocytosis and troponin is negative ct head negative for acute process ct cervical spine negative for acute process cxr negative for infiltrate xray of hand negative for fracture and dislocation EKG: NSR without ST elevation or depression. RBBB noted. left axis deviation noted. QTC noted to be 482 ms. Patient started on clidamycin for laceration to the hand with suspected infectious process Will admit the patient for unwitnessed syncope to telemetry for cardiac work up. Discharge - Discharge Information Problems reviewed: Yes Clinical Impression/Diagnosis: Cellulitis - Follow up/Referral - Patient Discharge Instructions - Post Discharge Activity
[2019-05-22] MEDS ORDERED: SODIUM CHLORIDE 500 ML IV STA (18:55)
[2019-05-22] MEDS ORDERED: CLINDAMYCIN 600MG PREMIX IVPB 600 MG/50 ML BAG IVPB ONE ×2 (18:55→19:40)
--- NOTE | 2019-05-22 21:08 | HP ---
CHIEF COMPLAINT: s/p fall and finger laceration PCP: Dr. Washington HISTORY OF PRESENT ILLNESS: Perry Schulz is an 84 year old male with a past medical history of CAD (s/p 2 stents), DM, peripheral neuropathy, spinal stenosis, Alzheimer's disease, CKD , BPH, GERD, HLD, esophageal strictures who presents after an unwitnessed fall at [facility]. The patient was found on the floor after an unwitnessed fall after dinner the day before admission. He does not remember the circumstances of the fall and does not recall how he fell or if he lost consciousness. Currently at the bedside, the patient denies any acute symptoms of chest pain, sob, abd pain, n/v/c/d, fever, chills, dizziness, lightheadedness, numbness, tingling, dysuria, hematuria, melena, hemtochezia. Only endorses some pain in his L 2nd digit upon palpation of it. Denies recent sick contacts. Daughter at the bedside, stated that the patient does not appear to be his usual self. She noted that the patient is usually AOx1 but is able to form complete sentences and make some sense in his words but now has a hard time forming a thought and stating it. Additionally, she notes that he has a new abrasion and hematoma on the R side of his head and the laceration on the L 2nd finger that was not present yesterday prior to the fall. ER course was notable for: (1) BUN 41.3, CRE 1.5 (baseline 1.1-1.3) (2) Given clindamycin 600mg IV and NS 500cc IMAGING Head CT: Axial imaging completed with coronal and sagittal reformations demonstrating no acute calvarial fracture on bone windows Normal region of orbits, sinuses and mastoids Midline ventricular system with no shift or hydrocephalus. No subdural or subarachnoid hemorrhage. 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 Finding stable since [address]: Axial imaging completed with coronal and sagittal reformations, no evidence of vertebral body fracture or subluxation. 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 Normal soft tissues of the neck with no signs of disc herniation on soft tissue windows Normal upper esophagus, superior mediastinum, thyroid gland and lower neck including paravertebral soft tissues with no hematoma. Normal odontoid process, base of C2 and atlantoaxial spaces including the craniocervical junction with presence of posterior disc osteophyte complex noted at C2/C3 left midline. Degenerative cervical spondylosis C5/C6 level and C6/C7 level with minimal anterolisthesis of C5 anterior to C6 with offset approximately 2 to 3 mm. No fractures in the posterior lamina identified. Recent Travel: denies PAST MEDICAL HISTORY: as above PAST SURGICAL HISTORY: 2 cardiac stents, bilateral cataract surgery, lumbar laminectomy, anal fissurectomy Social History: Smoking: former smoker, quit in 1991 Alcohol: denies Drugs: denies Lives at [facility]. Allergies ibuprofen Allergy (Verified 07/31/17 11:07) Rash Penicillins Allergy (Verified 07/31/17 11:07) Rash HOME MEDICATIONS: Home Medications Medication Instructions Recorded Allopurinol [Zyloprim -] 100 mg PO DAILY 12/02/17 Amlodipine Besylate [Norvasc -] 2.5 mg PO DAILY 12/02/17 Aspirin [Ecotrin] 81 mg PO DAILY 12/02/17 Donepezil HCl [Aricept -] 10 mg PO DAILY 12/02/17 Dutasteride [Avodart] 0.5 mg PO DAILY 12/02/17 Isosorbide Mononitrate [Isosorbide 60 mg PO DAILY 12/02/17 Mononitrate ER] Memantine HCl [Namenda Xr] 28 mg PO DAILY 12/02/17 Multivit-Min/FA/Lycopen/Lutein 1 each PO DAILY 12/02/17 [Centrum Silver Men Tablet] Omeprazole Magnesium [Prilosec Otc] 40 mg PO DAILY 12/02/17 Rosuvastatin Calcium [Crestor] 5 mg PO HS 12/02/17 Acetaminophen [Tylenol Extra 2 tab PO BID 05/22/19 Strength] Ascorbic Acid [Vitamin C -] 500 mg PO BID 05/22/19 Diclofenac Sodium [Diclo Gel] 1 each TP QID 05/22/19 Gabapentin [Neurontin] 100 mg PO HS 05/22/19 Mirtazapine 1 tab PO HS 05/22/19 Silver Sulfadiazine [Silvadene] 1 applic TP BID 05/22/19 REVIEW OF SYSTEMS CONSTITUTIONAL: Absent: fever, chills, diaphoresis, generalized weakness, malaise, loss of appetite, weight change HEENT: Absent: rhinorrhea, nasal congestion, throat pain, throat swelling, difficulty swallowing, visual changes CARDIOVASCULAR: Absent: chest pain, syncope, palpitations, irregular heart rate, lightheadedness , peripheral edema RESPIRATORY: Absent: cough, shortness of breath, dyspnea with exertion, orthopnea, wheezing, GASTROINTESTINAL: Absent: abdominal pain, abdominal distension, nausea, vomiting, diarrhea, constipation, melena, hematochezia GENITOURINARY: Absent: dysuria, frequency, urgency, hesitancy, hematuria, flank pain, MUSCULOSKELETAL: L 2nd finger pain Absent: myalgia, arthralgia, joint swelling, back pain, neck pain SKIN: Absent: rash, itching, pallor HEMATOLOGIC/IMMUNOLOGIC: Absent: easy bleeding, easy bruising, lymphadenopathy, frequent infections ENDOCRINE: Absent: unexplained weight gain, unexplained weight loss, heat intolerance, cold intolerance NEUROLOGIC: Absent: headache, focal weakness or paresthesias, dizziness, unsteady gait, seizure, mental status changes, bladder or bowel incontinence PSYCHIATRIC: Absent: anxiety, depression, suicidal or homicidal ideation, hallucinations. PHYSICAL EXAMINATION Vital Signs - 24 hr 05/22/19 16:33 Temperature 97.8 F Pulse Rate 65 Respiratory 16 Rate Blood Pressure 127/70 O2 Sat by Pulse 99 Oximetry (%) GENERAL: Awake, alert, oriented to self. HEAD: Noted ecchymoses and small hematoma on R side of forehead. EYES: L pupil pinpoint with reaction to light. R pupil with poor reactivity to light and coloboma. EARS, NOSE, THROAT: Oropharynx clear without exudates. Moist mucous membranes. NECK: Normal range of motion, supple without lymphadenopathy, JVD. LUNGS: Breath sounds equal, clear to auscultation bilaterally. No wheezes, and no crackles. No accessory muscle use. HEART: Regular rate and rhythm, normal S1 and S2 without murmur, rub. ABDOMEN: Soft, nontender, not distended, normoactive bowel sounds, no guarding, no rebound, no masses. MUSCULOSKELETAL: Normal range of motion at all joints. No bony deformities or tenderness. UPPER EXTREMITIES: 2+ pulses, warm, well-perfused. No cyanosis. No clubbing. No peripheral edema. LOWER EXTREMITIES: 2+ pulses, warm, well-perfused. No calf tenderness. No peripheral edema. NEUROLOGICAL: Cranial nerves II-XII intact. 5/5 muscle strength upper and lower extremities. PSYCHIATRIC: Cooperative. Answers most questions appropriately but has trouble speaking completely and rationally. Pleasant. SKIN: Scattered ecchymoses. L 2nd finger erythema, tenderness, open wound on the palmar surface. Laboratory Results - last 24 hr 05/22/19 05/22/19 05/22/19 17:43 17:43 18:09 WBC 6.3 RBC 3.72 L Hgb 11.8 Hct 35.1 L MCV 94.3 MCH 31.6 D MCHC 33.5 RDW 14.8 Plt Count 136 MPV 8.4 Absolute Neuts (auto) 4.5 Neutrophils % 71.2 Lymphocytes % 13.9 D Monocytes % 13.9 H Eosinophils % 0.6 Basophils % 0.4 Nucleated RBC % 0 Sodium 145 Potassium 3.8 Chloride 112 H Carbon Dioxide 26 Anion Gap 8 BUN 41.3 H Creatinine 1.5 H Est GFR (CKD-EPI)AfAm 47.16 Est GFR (CKD-EPI)NonAf 40.69 POC Glucometer Random Glucose 100 Calcium 8.9 Creatine Kinase 240 Creatine Kinase Index 1.4 CK-MB (CK-2) 3.4 Troponin I < 0.02 Urine Color Yellow Urine Appearance Clear Urine pH 5.5 Ur Specific [place] 1.024 Urine Protein 1+ H Urine Glucose (UA) Negative Urine Ketones Negative Urine Blood Trace Urine Nitrite Negative Urine Bilirubin Negative Urine Urobilinogen 1.0 Ur Leukocyte Esterase Negative Urine WBC (Auto) 1 Urine RBC (Auto) 8 Urine Casts (Auto) 0 U Epithel Cells (Auto) 1.0 Urine Bacteria (Auto) 7.2 05/22/19 20:28 WBC RBC Hgb Hct MCV MCH MCHC RDW Plt Count MPV Absolute Neuts (auto) Neutrophils % Lymphocytes % Monocytes % Eosinophils % Basophils % Nucleated RBC % Sodium Potassium Chloride Carbon Dioxide Anion Gap BUN Creatinine Est GFR (CKD-EPI)AfAm Est GFR (CKD-EPI)NonAf POC Glucometer 89 Random Glucose Calcium Creatine Kinase Creatine Kinase Index CK-MB (CK-2) Troponin I Urine Color Urine Appearance Urine pH Ur Specific [place] Urine Protein Urine Glucose (UA) Urine Ketones Urine Blood Urine Nitrite Urine Bilirubin Urine Urobilinogen Ur Leukocyte Esterase Urine WBC (Auto) Urine RBC (Auto) Urine Casts (Auto) U Epithel Cells (Auto) Urine Bacteria (Auto) EKG--> NSR, L axis deviation, RBBB (chronic), QTc 483 ASSESSMENT/PLAN: Perry Schulz is an 84 year old male with a past medical history of CAD (s/p 2 stents), DM, peripheral neuropathy, spinal stenosis, Alzheimer's disease, CKD , BPH, GERD, HLD, esophageal strictures admitted for syncope workup and cellulitis. Unwitnessed Fall r/o syncope - EKG as above - CT head/cervical spine as above - echo ordered - cardiac monitoring - orthostatics ordered - fall precautions - Physical therapy - TSH L 2nd finger cellulitis - continue clindamycin 600mg q8h - dry dressing to finger - Tdap given GE - likely in setting of dehydration, elevated BUN/CRE ratio - urine lytes, CRE to calculate FeNa - kidney/bladder U/S with no findings of post-renal obstruction. Noted renal cysts - gentle hydration Alzheimer's Disease - continue home memantine, donepezil, Remeron DM - BGM - ISS - A1c HTN - continue home amlodipine and isosorbide BPH - continue home dutasteride Hx of CAD - continue home aspirin DVT PPx - heparin 5000 units subq tid FEN - LR at 42cc/hr - continue to monitor electrolytes and replete as necessary - Diabetic diet CODE - DNR Family Medical History Family Hx Cancer: Mother (stomach cancer), Sister (stomach cancer) Family Hx Cardiac Disorders: Father ([place]) Other Family History: Additional family hx of pancreatic cancer and colorectal cancer in siblings Visit type - Emergency Visit Emergency Visit: Yes ED Registration Date: 05/22/19 Care time: The patient presented to the Emergency Department on the above date and was hospitalized for further evaluation of their emergent condition. - New Patient This patient is new to me today: Yes Date on this admission: 05/23/19 - Critical Care Critical Care patient: No
[2019-05-22] MEDS ORDERED: DONEPEZIL HCL 10 MG TABLET (FP) PO SCH (22:00)
[2019-05-22] MEDS ORDERED: ROSUVASTATIN CA 5 MG TABLET (FP) PO SCH (22:00)
[2019-05-22] MEDS ORDERED: GABAPENTIN 100 MG CAPSULE PO SCH (22:00)
[2019-05-22] MEDS ORDERED: MIRTAZAPINE 15 MG TABLET (FP) PO SCH (22:00)
[2019-05-22] MEDS ORDERED: DIPHTH,PERTUSS(ACELL),TET 0.5 ML DISP.SYRIN IM ONE (22:04)
[2019-05-22] MEDS ORDERED: MIRTAZAPINE 15 MG TABLET (FP) ONE (22:24)
[2019-05-22] MEDS ORDERED: SILVER SULFADIAZINE 1% TOP CREAM 50 GM JAR TP ONE (22:24)
[2019-05-22] MEDS ORDERED: DONEPEZIL HCL 5 MG TABLET (FP) ONE (22:24)
[2019-05-22] MEDS ORDERED: HEPARIN NA (PORCINE) 5,000 UNITS/ML 1ML VIAL ONE (22:24)
[2019-05-22] MEDS ORDERED: GABAPENTIN 100 MG CAPSULE ONE (22:24)
[2019-05-22] MEDS: HEPARIN NA (PORCINE) 5,000 UNITS/ML 1ML VIAL SQ SCH (22:35)
[2019-05-22] MEDS: SILVER SULFADIAZINE 1% TOP CREAM 50 GM JAR TP SCH (22:35)
[2019-05-22] MEDS: INSULIN SLIDING SCALE (NOVOLOG) 1 VIAL SQ SCH (23:04)
[2019-05-22] MEDS: ASCORBIC ACID 500 MG TABLET (FP) PO SCH (23:19)
[2019-05-22] MEDS ORDERED: LACTATED RINGERS SOLUTION 1,000 ML/1,000 ML INFUS.BAG IV SCH (23:30)
--- NOTE | 2019-05-23 01:25 | PN ---
Teaching Attending Note Name of Resident: Denilson Roy ATTENDING PHYSICIAN STATEMENT I saw and evaluated the patient. I reviewed the resident's note and discussed the case with the resident. I agree with the resident's findings and plan as documented. SUBJECTIVE: 88-year-old male coming from [facility] with history of CAD, dyslipidemia, diabetes mellitus, dementia, poor p.o. intake, esophageal stricture presenting after an unwitnessed fall on 05/21/2019 in the evening. Fall was unwitnessed. As per daughter patient was found on the floor at around 930. Patient was found to have a hematoma on his frontal forehead. No C-spine tenderness. OBJECTIVE: Last Vital Signs Temp Pulse Resp BP Pulse Ox 97.8 F 62 14 134/76 98 05/22/19 16:33 05/22/19 23:53 05/22/19 23:53 05/22/19 23:53 05/22/19 23:53 GENERAL: Well developed, well nourished. Awake and alert. No acute distress. HEENT: Normocephalic,Right forehead erythematous. PERRLA, EOMI. No conjunctival pallor. Sclera are non-icteric. Moist mucous membranes. Oropharynx is clear. NECK: Supple. Full ROM. No JVD. Carotid pulses 2+ and symmetric, without bruits. No thyromegaly. No lymphadenopathy. CARDIOVASCULAR: Regular rate and rhythm. No murmurs, rubs, or gallops. Distal pulses are 2+ and symmetric. PULMONARY: No evidence of respiratory distress. Lungs clear to auscultation bilaterally. No wheezing, rales or rhonchi. ABDOMINAL: Soft. Non-tender. Non-distended. No rebound or guarding. No organomegaly. Normoactive bowel sounds. MUSCULOSKELETAL Normal range of motion at all joints. No bony deformities or tenderness. No CVA tenderness. EXTREMITIES: No cyanosis. No clubbing. No edema. No calf tenderness.Left second finger with cellulitis, Laceration on frontal aspect SKIN: Warm and dry. Normal capillary refill. No rashes. No jaundice. NEUROLOGICAL: Alert, awake, appropriate. Cranial nerves 2-12 intact. PSYCHIATRIC: Cooperative. Good eye contact. Appropriate mood and affect. Abnormal Lab Results 05/22/19 05/22/19 05/22/19 17:43 17:43 18:09 RBC 3.72 L Hct 35.1 L Monocytes % 13.9 H Chloride 112 H BUN 41.3 H Creatinine 1.5 H Urine Protein 1+ H Imaging studies reviewed Imaging studies reviewed. No acute intracranial hemorrhage or acute infarction on head CT. No CT evidence of acute vertebral body fracture. Degenerative cervical spondylosis, most severe involving C5-C6 and C6-C7 with minimal degree anterolisthesis of C5 anterior to C6 with onset approximately 2 to 3 mm. Renal ultrasound appreciatedbilateral renal cysts, no hydronephrosis identified ASSESSMENT AND PLAN: 88-year-old male status post fall with trauma to head as evidenced by hematoma. Head and neck imaging as above MedSurg Fall precautions Bedrest Physical therapy evaluation Left second finger cellulitis Continue with clindamycin p.o. Tdap #AKIsuspect possibly prerenal Urine lites Avoid nephrotoxins Gentle hydration #Diabetes mellitus BGM NovoLog sliding scale A1c #Hypertension Continue with amlodipine and isosorbide #BPH Continue with dutasteride DVT prophylaxisheparin subcutaneously
[2019-05-23] MEDS ORDERED: CLINDAMYCIN 600MG PREMIX IVPB 600 MG/50 ML BAG IVPB ONE (02:45)
[2019-05-23] MEDS ORDERED: HEPARIN NA (PORCINE) 5,000 UNITS/ML 1ML VIAL ONE (02:45)
[2019-05-23] MEDS: CLINDAMYCIN 600MG PREMIX IVPB 600 MG/50 ML BAG IVPB SCH ×2 (03:17→09:54)
[2019-05-23 06:02] VITALS: TEMP 98.1
[2019-05-23] MEDS: HEPARIN NA (PORCINE) 5,000 UNITS/ML 1ML VIAL SQ SCH ×2 (07:16→17:29)
[2019-05-23] MEDS: INSULIN SLIDING SCALE (NOVOLOG) 1 VIAL SQ SCH ×2 (07:20→14:35)
[2019-05-23 07:57] LABS: BASO % 0.4 % (0-2.0); EOS % 1.7 % (0-4.5); HEMATOCRIT 38.2 % (35.4-49); HEMOGLOBIN 12.8 GM/dL (11.7-16.9); LYMPH % 11.3 % (8-40); MCH 31.2 pg (25.7-33.7); MCHC 33.4 g/dl (32.0-35.9); MEAN CELL VOLUME 93.3 fl (80-96); MEAN PLT VOLUME 8.4 fl (7.5-11.1); MONO % 11.3 % (3.8-10.2); NEUT % 75.3 % (42.8-82.8); PLATELET COUNT 128 K/MM3 (134-434); WHITE BLOOD COUNT 6.6 K/mm3 (4.0-10.0)
[2019-05-23 08:02] LABS: BLOOD UREA NITROGEN 35.8 mg/dL (7-18); CALCIUM 8.7 mg/dL (8.5-10.1); CREATININE 1.1 mg/dL (0.55-1.3); MAGNESIUM 2.3 mg/dL (1.8-2.4); PHOSPHOROUS 2.6 mg/dL (2.5-4.9); POTASSIUM 3.5 mmol/L (3.5-5.1)
--- NOTE | 2019-05-23 09:34 | EKG ---
Test Reason : Blood Pressure : / mmHG Vent. Rate : 072 BPM Atrial Rate : 072 BPM P-R Int : 200 ms QRS Dur : 136 ms QT Int : 442 ms P-R-T Axes : 076 -51 032 degrees QTc Int : 483 ms NORMAL SINUS RHYTHM LEFT AXIS DEVIATION /LAFB RIGHT BUNDLE BRANCH BLOCK ABNORMAL ECG WHEN COMPARED WITH ECG OF 02-DEC-2017 10:06, VENT. RATE HAS INCREASED BY 25 BPM QRS AXIS SHIFTED LEFT QT HAS LENGTHENED Confirmed by Teresita Thomas ([id number]) on 05/23/2019 9:34:02 AM Referred By: Confirmed By:Teresita Thomas
[2019-05-23] MEDS ORDERED: amLODIPine BESYLATE 2.5 MG TABLET (FP) PO SCH (10:00)
[2019-05-23] MEDS ORDERED: PANTOPRAZOLE 40 MG TABLET PO SCH (10:00)
[2019-05-23] MEDS ORDERED: DUTASTERIDE 0.5 MG CAP (FP) PO SCH (10:00)
[2019-05-23] MEDS ORDERED: ASPIRIN COATED 81 MG TABLET.EC PO SCH (10:00)
[2019-05-23] MEDS ORDERED: ALLOPURINOL 100 MG TABLET (FP) PO SCH (10:00)
[2019-05-23] MEDS ORDERED: MULTIVITAMINS THER W-MINERALS COMBO TABLET (FP) PO SCH (10:00)
[2019-05-23] MEDS ORDERED: ISOSORBIDE MONONITRATE 60 MG TAB.SR.24H (FP) PO SCH (10:00)
[2019-05-23] MEDS ORDERED: PATIENT'S OWN MEDICATION (NON-FORMULARY) (Memantine Hcl [Namenda Xr] 28 MG) PO SCH (10:00)
[2019-05-23] MEDS ORDERED: VANCOMYCIN 1 GM in D5W (PRE-DOCKED) 1,000 MG/250 ML IVPB ONE (11:00)
[2019-05-23] MEDS: ASCORBIC ACID 500 MG TABLET (FP) PO SCH (12:00)
[2019-05-23] MEDS ORDERED: VANCOMYCIN 1 GRAM (PRE-DOCKED) 1,000 MG/250 ML BAG IVPB ONE (13:54)
[2019-05-23] MEDS ORDERED: CLINDAMYCIN HCL 300 MG CAPSULE PO SCH (14:00)
[2019-05-23] MEDS ORDERED: amLODIPine BESYLATE 5 MG TABLET (FP) ONE (14:23)
[2019-05-23] MEDS ORDERED: CLINDAMYCIN HCL 150 MG CAPSULE (FP) PO SCH (15:00)
[2019-05-23] MEDS: SILVER SULFADIAZINE 1% TOP CREAM 50 GM JAR TP SCH (17:29)
[2019-05-23 17:33] VITALS: BP 120/82; PULSE 60
--- NOTE | 2019-05-23 18:14 | DS ---
Physical Exam: SUBJECTIVE: Patient seen and examined at bedside today. Pt's daughter at bedside. Hx obtained from her. OBJECTIVE: Vital Signs Period Temp Pulse Resp BP Sys/Garcia Pulse Ox Last 24 Hr 97.4 F-98.1 F 55-72 14-18 120-172/69-113 96-98 PHYSICAL EXAM GENERAL: The patient is awake, not oriented. LUNGS: Breath sounds equal, clear to auscultation bilaterally, no wheezes, no crackles, no accessory muscle use. HEART: Regular rate and rhythm, S1, S2 without murmur, rub or gallop. ABDOMEN: Soft, nontender, nondistended, normoactive bowel sounds, no guarding, no rebound, no hepatosplenomegaly, no masses. EXTREMITIES: 2+ pulses, warm, well-perfused, no edema. NEUROLOGICAL: Cranial nerves II through XII grossly intact. Normal speech, gait not observed. PSYCH: severe dementia at baseline. SKIN: rt head hematoma s/p fall LABS Laboratory Results - last 24 hr 05/22/19 05/22/19 05/22/19 17:43 18:09 20:28 WBC RBC Hgb Hct MCV MCH MCHC RDW Plt Count MPV Absolute Neuts (auto) Neutrophils % Lymphocytes % Monocytes % Eosinophils % Basophils % Nucleated RBC % Sodium 145 Potassium 3.8 Chloride 112 H Carbon Dioxide 26 Anion Gap 8 BUN 41.3 H Creatinine 1.5 H Est GFR (CKD-EPI)AfAm 47.16 Est GFR (CKD-EPI)NonAf 40.69 POC Glucometer 89 Random Glucose 100 Hemoglobin A1c % Calcium 8.9 Phosphorus Magnesium Creatine Kinase 240 Creatine Kinase Index 1.4 CK-MB (CK-2) 3.4 Troponin I < 0.02 TSH Urine Color Yellow Urine Appearance Clear Urine pH 5.5 Ur Specific [place] 1.024 Urine Protein 1+ H Urine Glucose (UA) Negative Urine Ketones Negative Urine Blood Trace Urine Nitrite Negative Urine Bilirubin Negative Urine Urobilinogen 1.0 Ur Leukocyte Esterase Negative Urine WBC (Auto) 1 Urine RBC (Auto) 8 Urine Casts (Auto) 0 U Epithel Cells (Auto) 1.0 Urine Bacteria (Auto) 7.2 05/22/19 05/23/19 05/23/19 23:01 07:13 07:13 WBC 6.6 RBC 4.10 Hgb 12.8 Hct 38.2 MCV 93.3 MCH 31.2 MCHC 33.4 RDW 15.0 Plt Count 128 L MPV 8.4 Absolute Neuts (auto) 4.9 Neutrophils % 75.3 Lymphocytes % 11.3 Monocytes % 11.3 H Eosinophils % 1.7 D Basophils % 0.4 Nucleated RBC % 0 Sodium 143 Potassium 3.5 Chloride 110 H Carbon Dioxide 26 Anion Gap 6 L BUN 35.8 H Creatinine 1.1 Est GFR (CKD-EPI)AfAm 68.62 Est GFR (CKD-EPI)NonAf 59.20 POC Glucometer 122 Random Glucose 93 Hemoglobin A1c % Calcium 8.7 Phosphorus 2.6 Magnesium 2.3 Creatine Kinase Creatine Kinase Index CK-MB (CK-2) Troponin I TSH 1.61 Urine Color Urine Appearance Urine pH Ur Specific [place] Urine Protein Urine Glucose (UA) Urine Ketones Urine Blood Urine Nitrite Urine Bilirubin Urine Urobilinogen Ur Leukocyte Esterase Urine WBC (Auto) Urine RBC (Auto) Urine Casts (Auto) U Epithel Cells (Auto) Urine Bacteria (Auto) 05/23/19 05/23/19 05/23/19 07:13 07:20 14:32 WBC RBC Hgb Hct MCV MCH MCHC RDW Plt Count MPV Absolute Neuts (auto) Neutrophils % Lymphocytes % Monocytes % Eosinophils % Basophils % Nucleated RBC % Sodium Potassium Chloride Carbon Dioxide Anion Gap BUN Creatinine Est GFR (CKD-EPI)AfAm Est GFR (CKD-EPI)NonAf POC Glucometer 86 121 Random Glucose Hemoglobin A1c % 5.3 Calcium Phosphorus Magnesium Creatine Kinase Creatine Kinase Index CK-MB (CK-2) Troponin I TSH Urine Color Urine Appearance Urine pH Ur Specific [place] Urine Protein Urine Glucose (UA) Urine Ketones Urine Blood Urine Nitrite Urine Bilirubin Urine Urobilinogen Ur Leukocyte Esterase Urine WBC (Auto) Urine RBC (Auto) Urine Casts (Auto) U Epithel Cells (Auto) Urine Bacteria (Auto) HOSPITAL COURSE: Date of Admission:05/22/[address]: No acute intracranial hemorrhage or acute infarction. CT C-spine: No CT evidence of acute vertebral body fracture. Degenerative cervical spondylosis, most severe involving C5-C6 and C6-C7 with minimal degree anterolisthesis of C5 anterior to C6 with onset approximately 2 to 3 mm. Renal/bladder ultrasound: bilateral renal cysts, no hydronephrosis identified This is an 88-year-old male s/p unwitnessed mechanical fall. Head and neck imaging as above. Pt was given clindamycin PO 600q8H for left second finger cellulitis as well as vanco IV one time dose. Tdap was administered as well prophylactically. Pt presented in GE likely pre-renal given poor po intake. Pt was gently hydrated and improved. Pt told to continue home medications as prescribed. Told to follow up with PCP in 1 week. Date of Discharge: 05/23/19 Minutes to complete discharge: 35 Discharge Summary Problems reviewed: Yes Reason For Visit: CELLULITIS, SYNCOPE Condition: Stable - Instructions Diet, Activity, Other Instructions: You were admitted for an unwitnessed fall and for an infection on your finger. You had imaging taken of your neck and head which did not show any signs of bleeding or new damage. You were given antibiotics for your finger infection and recommended you to have physical therapy. You are now safe to return back to your retirement facility. You should follow up with your primary care doctor within 1 week. You should continue taking your home medications as prescribed. You should return to the emergency room if you have any worsening of your current symptoms or: chest pain, shortness of breath, weakness, or numbness in your lower extremities. You should continue: Cleocin 600mg (300mg each tablet 3 times per day every 8 hours) by mouth for a total of 7 days = 42 pills. Referrals: Elloitt Washington [Primary Care Provider] - 1 Week Disposition: HALF-WAY FACILITY - Home Medications Comprehensive Discharge Medication List: Ambulatory Orders Allopurinol [Zyloprim -] 100 mg PO DAILY 12/02/17 Amlodipine Besylate [Norvasc -] 2.5 mg PO DAILY 12/02/17 Aspirin [Ecotrin] 81 mg PO DAILY 12/02/17 Donepezil HCl [Aricept -] 10 mg PO DAILY 12/02/17 Dutasteride [Avodart] 0.5 mg PO DAILY 12/02/17 Isosorbide Mononitrate [Isosorbide Mononitrate ER] 60 mg PO DAILY 12/02/17 Memantine HCl [Namenda Xr] 28 mg PO DAILY 12/02/17 Multivit-Min/FA/Lycopen/Lutein [Centrum Silver Men Tablet] 1 each PO DAILY 12/02 Omeprazole Magnesium [Prilosec Otc] 40 mg PO DAILY 12/02/17 Rosuvastatin Calcium [Crestor] 5 mg PO HS 12/02/17 Acetaminophen [Tylenol Extra Strength] 2 tab PO BID 05/22/19 Ascorbic Acid [Vitamin C -] 500 mg PO BID 05/22/19 Diclofenac Sodium [Diclo Gel] 1 each TP QID 05/22/19 Gabapentin [Neurontin] 100 mg PO HS 05/22/19 Mirtazapine 1 tab PO HS 05/22/19 Silver Sulfadiazine [Silvadene] 1 applic TP BID 05/22/19 This patient is new to me today: Yes Date on this admission: 05/23/19 Emergency Visit: Yes ED Registration Date: 05/22/19 Care time: The patient presented to the Emergency Department on the above date and was hospitalized for further evaluation of their emergent condition. Critical Care patient: No - Discharge Referral Referred to [facility] Med P.C.: No ATTENDING PHYSICIAN STATEMENT I saw and evaluated the patient. I reviewed the resident's note and discussed the case with the resident. I agree with the resident's findings and plan as documented. SUBJECTIVE: OBJECTIVE: ASSESSMENT AND PLAN:
--- NOTE | 2019-05-23 18:16 | PN ---
Teaching Attending Note Name of Resident: Massimo Burt ATTENDING PHYSICIAN STATEMENT I saw and evaluated the patient. I reviewed the resident's note and discussed the case with the resident. I agree with the resident's findings and plan as documented. Seen and examined; please see resident note for further historical information. I personally verified all breaux historical information and exam findings. Personally interpreted all imaging and diagnostics and reviewed appropriate consults. I reviewed all labs and vital signs as per resident note and EMR as documented. I agree with the above assessment and plan unless supplemented by myself in the following. Patient was seen in the emergency room by myself with resident team. Daughter was spoken with. She does not wish for further work-up and states that she would like her father, who is confirmed his DO NOT RESUSCITATE DO NOT INTUBATE most form was completed, to be returned to the long-term care facility with oral antibiotics for the finger wound. The patient was given Tdap per Dr. Montes De Oca. They do not require IV antibiotics as the did not fail first-line therapy, the daughter does not wish for further imaging or work-up per the resident team as he really has advanced healthcare issues given his dementia. 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 The daughter apparently stated that she chose to stop following up with cardiology for this, given the fact that her father had severe health issues, and placed him in the retirement and does not want aggressive care, choosing to focus on the quality of life. Thus, he will be discharged home with p.o. Clinda. Family refused cardiology consultation. 10 item review of systems not possible due to clinical condition VS, labs, imaging reviewed NAD, AAOx0, resting comfortably in bed. RRR s1/2 no mgr Normal muscle tone, moves all 5 extremities with normal apparent strength Neck is supple, trachea midline, no maddi LN Lungs CTAB with sym expansion NT ND +BS no maddi organomegaly CN2-12 wnl; no FND NC AT EOMI PERRLA Normal mood, appropriate behavior, euthymic affect No skin breakdown or rashes noted; small area of cellulitis on tip of index finger. Dispo: Back to facility Followup with facility doctor in 2-3 days; if infection worsens it would still be reasonable to offer drainage, etc. if this persists given that it could affect the patient's overall comfort level but daughter is not in favor of agressive care. They declined cardiology referral with their old group. DNR paperwork completed Transfer back to facility
== END 2019-05-23 17:41 ==
LOC: JER 16:15 → INTOOBSV 19:10 → JERBED 19:10
PROVIDERS: ADMIT Internal Medicine; ATTEND Internal Medicine
PROC: 3E03329 Introduction of Other Anti-infective into Peripheral Vein, Percutaneous Approach (ICD-10-PCS; principal; 2019-05-22)
PROC: 3E0337Z Introduction of Electrolytic and Water Balance Substance into Peripheral Vein, Percutaneous Approach (ICD-10-PCS; 2019-05-22)
PROC: 3E033GC Introduction of Other Therapeutic Substance into Peripheral Vein, Percutaneous Approach (ICD-10-PCS; 2019-05-22)
PROC: 3E0234Z Introduction of Serum, Toxoid and Vaccine into Muscle, Percutaneous Approach (ICD-10-PCS; 2019-05-22)
DX: Z04.3 Encounter for examination and observation following other accident (principal); L03.012 Cellulitis of left finger; R55 Syncope and collapse; I10 Essential (primary) hypertension; E78.5 Hyperlipidemia, unspecified; E11.9 Type 2 diabetes mellitus without complications; G30.9 Alzheimer's disease, unspecified; F02.80 Dementia in other diseases classified elsewhere, unspecified severity, without behavioral disturbance, psychotic disturbance, mood disturbance, and anxiety; R63.8 Other symptoms and signs concerning food and fluid intake; I45.10 Unspecified right bundle-branch block; I25.10 Atherosclerotic heart disease of native coronary artery without angina pectoris; G62.9 Polyneuropathy, unspecified; M48.00 Spinal stenosis, site unspecified; N40.0 Benign prostatic hyperplasia without lower urinary tract symptoms; Z95.5 Presence of coronary angioplasty implant and graft; Z79.82 Long term (current) use of aspirin; Z88.0 Allergy status to penicillin; Z88.6 Allergy status to analgesic agent; W18.39XA Other fall on same level, initial encounter; Y93.9 Activity, unspecified; Y92.122 Bedroom in nursing home as the place of occurrence of the external cause
CPT/HCPCS: 36415; 70450-TC; 71045-TC-FY; 72125-TC; 73130-TC-LT-FY; 76775-TC; 76856-TC; 80048; 81003; 82550; 82553; 82962; 83036; 83735; 84100; 84443; 84484; 85025; 90471; 90715; 93005; 93010; 96365; 96375; 99285-25; G0378; J1644